=== PATIENT | female | born 1990 | race Caucasian/White ===

== ENCOUNTER 2023-05-01 09:35 | Outpatient (CLI) | payer OTHER, MEDICAID, SELFPAY | END 2023-05-01 09:36 | disposition home or self-care (01) | PROVIDERS: PCP Internal Medicine; Visit Provider Student in an Organized Health Care Education/Training Program | DX: O20.9 Hemorrhage in early pregnancy, unspecified (principal) | CPT/HCPCS: 36415; 84702 ==

== ENCOUNTER 2023-05-03 07:39 | Outpatient (CLI) | payer OTHER, MEDICAID, SELFPAY | END 2023-05-03 07:40 | disposition home or self-care (01) | LOC: ANHLAB 07:42 | PROVIDERS: PCP Internal Medicine; Visit Provider Obstetrics & Gynecology | DX: O20.9 Hemorrhage in early pregnancy, unspecified (principal) | CPT/HCPCS: 36415; 84702 ==

== ENCOUNTER 2023-05-06 07:25 | Outpatient (CLI) | payer OTHER, MEDICAID, SELFPAY | END 2023-05-06 07:26 | disposition home or self-care (01) | LOC: ANHLAB 07:27 | PROVIDERS: PCP Internal Medicine; Visit Provider Obstetrics & Gynecology | DX: O20.9 Hemorrhage in early pregnancy, unspecified (principal); Z3A.00 Weeks of gestation of pregnancy not specified | CPT/HCPCS: 36415; 84702 ==

== ENCOUNTER 2023-05-16 01:27 | Day surgery (SDC) | payer OTHER, MEDICAID, SELFPAY ==
[2023-05-08 11:12] VITALS: BMI 29.7
--- NOTE | 2023-05-08 11:15 | PC.NURSE ---
Report to the Outpatient Waiting Room, entrance under the green pavilion located off [facility], at time 0915 on date 05/16/23. Planned Procedure Time: 1115. Time changes happen often and if your time is changed the preop area will call you the afternoon before. - You and your visitor will be asked to self-screen and do not enter if you have any COVID symptoms. - A mask is optional within the hospital at this time. Patients may have clear liquids (water, carbonated beverages, clear teas, apple juice) until 3 hours prior to surgery with a maximum of 20 ounces. - No food from midnight until time of surgery Take the following medications with a SIP of water the morning of surgery: N/A DO NOT STOP ANY OF YOUR OTHER PRESCRIPTION MEDICATIONS PRIOR TO SURGERY ?EXCEPT THE FOLLOWING Medications to discontinue per physician: N/A Date to take last dose: N/A Please no make-up, nail georgian, hairspray, perfume, deodorant, or body powder the day of surgery. No jewelry (including any body piercings) or valuables the day of surgery, leave them at home. Please take a shower or bath the night before, or the morning of, surgery with an antibacterial soap. Wear comfortable, loose fitting clothing. - Jewelry must be removed prior to entering the operating room. Rings and piercings that are not removed may be cut off. - The hospital will not accept responsibility for valuables. - Please leave all valuables, including medications, at home the day of surgery. If you are going home after surgery, a licensed explosives truck driver must drive you home. - NO public transportation without another adult if you receive anesthesia. - We recommend that an adult stay with you for 24 hours following discharge. - We also recommend that you do not drive, make important decision, drink alcoholic beverages, or take any drugs that were not prescribed by your health care provider for at least 24 hours after your discharge time. Follow any additional instructions given to you from your surgeon. If you or anyone in your household have experienced Covid symptoms in the past week, please notify your surgeon or the nurse liaison at the phone number below for possible testing. Telephone instructions given to PT - LYNDSEY MCKEON and asked if any additional questions and then verbalized understanding. Patient advised to call surgeon office or pre surgery nurse liaison [phone] if any additional questions.
[2023-05-16 06:22] VITALS: BP 119/77; PULSE 66; RESP 16; TEMP 36.3; O2SAT 100
[2023-05-16] MEDS: LACTATED RINGERS 1,000 ML 30 ML IV CONT (06:35)
[2023-05-16 06:50] LABS: Hematocrit 39.7 % (37.0-47.0); Hemoglobin 13.4 g/dL (12.0-15.0); Mean Corpuscular HGB Conc 33.8 g/dl (32-36); Mean Corpuscular Hemoglobin 31.8 pg (26-34); Mean Corpuscular Volume 94.3 fl (80-100); Mean Platelet Volume 10.3 fl (7.4-10.4); Platelet Count Result 223 k/mm3 (150-375); Red Blood Count 4.21 M/mm3 (4.2-5.4); Red Cell Distribution Width 12.1 % (11.5-14.5); White Blood Count 4.8 K/mm3 (4.5-10.0)
--- NOTE | 2023-05-16 07:13 | WPDHPUPDATE1 ---
History and Physical Update Update Date/Time: 05/16/23 07:13 History and Physical has been reviewed, including an updated exam of the patient. There are NO changes in the patient's condition. Risks, benefits, and alternatives have been discussed and questions answered. Patient agrees to proceed with procedure.
--- NOTE | 2023-05-16 07:29 | WPDANESEPPF ---
Anes - Initial Pre Proc Eval Procedure: Operation Date: 05/16/23 07:30 Proposed Procedures p Suction Dilation and Curettage - Jose Carlos Alberto MD Date/Time: 05/16/23 07:29 Surgeon: Jose Carlos Alberto MD Pre Op Diagnosis: Missed Ab Patient Data Age: 33 Gender: F Height: 1.7 m Weight: 86 kg Last Vital Signs Temp 36.3 C L 05/16/23 06:22 Pulse 66 05/16/23 06:22 Resp 16 05/16/23 06:22 BP 119/77 05/16/23 06:22 Pulse Ox 100 05/16/23 06:22 O2 Del Method Room Air 05/16/23 06:22 Allergies Allergy/AdvReac Type Severity Reaction Status Date / Time No Known Allergies Allergy Verified 05/08/23 11:11 Home Medications Medication Instructions Recorded Confirmed Type No Home Medications 02/13/23 05/16/23 History Laboratory Tests 05/16/23 06:35 WBC 4.8 K/mm3 (4.5-10.0) RBC 4.21 M/mm3 (4.2-5.4) Hgb 13.4 g/dL (12.0-15.0) Hct 39.7 % (37.0-47.0) MCV 94.3 fl (80-100) MCH 31.8 pg (26-34) MCHC 33.8 g/dl (32-36) RDW 12.1 % (11.5-14.5) Plt Count 223 k/mm3 (150-375) MPV 10.3 fl (7.4-10.4) Patient hx anesthesia problems: none Family hx anesthesia problems: none Results Review: All pre-operative results and documents have been reviewed as part of the pre-operative evaluation. [facility] Past Medical History Medical History Abnormal Pap smear of cervix 11/03/14 ASCUS (+) HPV- 12/13/2014 colpo benign 04/03/2017 Lgsil +hpv; 12/24/2017 Lgsil +hpv; 05/18/2020 Lgsil -hpv ; 05/19/2021 Lgsil +hpv Encounter for IUD insertion 08/01/11 Mirena insertion 12/28/16 Mirena removal/insertion Encounter for IUD removal 12/28/16 Mirena removal/insertion HPV in female Low grade squamous intraepithelial lesion (LGSIL) on cervicovaginal cytologic smear Vaginal delivery 06/15/11 no complications Rosemary Surgical History Surgical History History of colposcopy with cervical biopsy 12/13/14 benign 05/15/17 LGSIL CECILIA 1, chronic cervicitis 03/05/18 benign Family History Family History Grandparent Cerebrovascular accident paternal grandmother Diabetes mellitus Grandparent Carcinoma of colon maternal grandmother Obesity Grandparent Obesity Diabetes mellitus Cirrhosis of liver Sibling Asthma Social History Social History Years smoked: 1 Smoking status: Former smoker Tobacco type: cigarettes Smoking end date: 06/17/09 Alcohol intake: current Alcohol use details: 1/MONTH Substance use: never Substance use type: does not use Living arrangements: with family Occupation/Education: occupation Gender identity (if verbalized by the patient): Female Spiritual care concerns: No Anes - Eval Final PreProcedure Day of Procedure 05/16/23 07:29 Patient weight: overweight Heart: regular rate and rhythm Lungs: clear to auscultation Airway: Mallampati scale class II Neurological: alert and oriented Last oral intake: >/= 8 hours ASA classification: II Emergent: no Anesthetic plan: proceed Anesthesia type and monitoring: general GIVS and standard monitoring Results Review: All pre-operative results and documents have been reviewed as part of the pre-operative evaluation. Informed Consent: The patient's anesthetic plan and its attendant risks and benefits were discussed with the patient/family/POA. Questions were solicited and answers provided to the satisfaction of the patient/family/POA.
[2023-05-16 07:52] VITALS: BP 112/66; PULSE 75; RESP 14; O2SAT 98
--- NOTE | 2023-05-16 07:52 | P.OP_ITS ---
Procedure Note - Detailed Date of Procedure 05/16/23 Pre-op Diagnosis Missed Ab Post-op Diagnosis Same Procedure Performed Suction curettage Surgeon Jose Carlos Alberto MD Anesthesia MAC Findings Moderate amount of retained products of conception Description of Procedure Patient prepped and draped in usual manner for this procedure. Cervix was dilated to allow a 8mm suction curette be placed. Depth of the uterus was 9cm. Suction curette removed tissue without difficulty. Sharp curetting throughout revealed no remaining tissue, suction curette was placed 1 last time with small amount of bleeding. This point the procedure was considered terminated the pat ient was sent to recovery room stable condition. Estimated Blood Loss 10 Drains No Packing No Pathology Yes Complications No immediate complications Condition Stable Disposition PACU [facility] Billing Surgery - Charge Forward: Surgery Billing
[2023-05-16] MEDS: RHO(D) IMMUNE GLOBULIN 300 MCG/2 ML SYRINGE IM (08:19)
[2023-05-16 08:20] VITALS: BP 109/63; PULSE 67; RESP 20
[2023-05-16] MEDS: oxyCODONE HCL (*CRX) 5 MG TAB IR PO (08:27)
[2023-05-16 08:50] VITALS: BP 100/50; PULSE 57; RESP 20
[2023-05-16] MEDS: ONDANSETRON INJ 4 MG/2 ML VIAL IV PUSH (08:53)
[2023-05-16 09:15] VITALS: BP 110/60; PULSE 60; RESP 20
== END 2023-05-16 09:27 | disposition home or self-care (01) ==
PROVIDERS: PCP Nurse Practitioner Family; Visit Provider Obstetrics & Gynecology
PROC: (CPT 59820; principal; 2023-05-16 07:30)
DX: O02.1 Missed abortion (principal); Z87.891 Personal history of nicotine dependence
CPT/HCPCS: 59820; 36415; 85027; 85461; 86850; 86900; 86901; 88305; 90384; A9270; J1100; J2250; J2405; J2704; J2790; J3010; J7120

== ENCOUNTER 2023-11-04 10:07 | Outpatient (RCR) | payer OTHER, SELFPAY ==
[2023-11-04 10:48] LABS: Basophils Percent Auto 0.6 % (0.2-1.2); Eosinophils Absolute Auto 0.1 K/mm3 (0-0.3); Hematocrit 41.4 % (37.0-47.0); Hemoglobin 14.2 g/dL (12.0-15.0); Immature Granulocyte Absolute 0.03 K/mm3 (0.00-0.031); Immature Granulocyte Percent A 0.4 % (0-0.5); Lymphocytes Percent Auto 25.3 % (18.3-44.2); Mean Corpuscular HGB Conc 34.3 g/dl (32-36); Mean Corpuscular Hemoglobin 31.8 pg (26-34); Mean Corpuscular Volume 92.6 fl (80-100); Mean Platelet Volume 10.4 fl (7.4-10.4); Monocytes Absolute Auto 0.3 K/mm3 (0.1-0.6); Monocytes Percent Auto 5.1 % (2.6-8.5); Neutrophils Absolute Auto 4.5 K/mm3 (1.3-6.7); Neutrophils Percent Auto 67.6 % (45.5-73.1); Platelet Count Result 255 k/mm3 (150-375); Red Blood Count 4.47 M/mm3 (4.2-5.4); White Blood Count 6.7 K/mm3 (4.5-10.0)
[2023-11-04 11:40] LABS: HIV 1/2 Ab P24 Ag Result Negative (Negative)
[2023-11-04 12:00] LABS: Hepatitis B Surface Antigen Negative (Negative)
[2023-11-04 12:05] LABS: Rubella IgG Antibody > 110.0 IU/ML
[2023-11-04 14:35] LABS: Rapid Plasma Reagin Non-Reactive (NonReactive)
[2023-11-05 16:28] LABS: CMV IgG Antibody <0.60 U/mL
== END 2024-02-02 23:59 | disposition home or self-care (01) ==
LOC: ANHLAB 10:07
PROVIDERS: PCP Nurse Practitioner Family; Visit Provider Student in an Organized Health Care Education/Training Program
DX: Z11.4 Encounter for screening for human immunodeficiency virus [HIV] (principal); N94.89 Other specified conditions associated with female genital organs and menstrual cycle
CPT/HCPCS: 36415; 84702; 85025; 86592; 86644; 86703; 86747; 86762; 86787; 86850; 86900; 86901; 87086; 87088; 87340; G0432

== ENCOUNTER 2023-11-20 15:43 | Outpatient (CLI) | payer OTHER, SELFPAY ==
--- NOTE | ~2023-11-20 | US_ITS ---
Pelvic ultrasound. Clinical History: First trimester , reassess subchorionic hemorrhage COMPARISON: 11/06/2023 Technique: Realtime transabdominal and transvaginal scanning of the pelvis was performed. Color flow Doppler and Doppler spectral analysis were performed. Findings: The uterus is retroverted, and contains an intrauterine gestation. [place]-rump length of 2.5 cm corresponds to an estimated gestational age of 9 weeks 2 days. heart rate is 173 bpm.. No s ubchorionic hemorrhage seen on the current exam The right ovary measures 4.2 x 4.2 x 2.2 cm. No significant right ovarian or adnexal mass is seen. The left ovary measures 2.0 x 3.3 x 1.8 cm. No significant left ovarian or adnexal mass is seen. There is no evidence of free fluid in the cul de sac. Impression: Live intrauterine gestation, with estimated gestational age of 9 weeks 2 days. heart rate is 17 3 bpm. Previously identified subchorionic hemorrhage is resolved. Reviewed, dictated and finalized at location . Impression: Live intrauterine gestation, with estimated gestational age of 9 weeks 2 days. heart rate is 173 bpm. Previously identified subchorionic hemorrhage is resolved.
== END 2023-11-20 15:44 ==
LOC: MICIMG 15:43
PROVIDERS: PCP Obstetrics & Gynecology; Visit Provider Obstetrics & Gynecology
DX: O46.8X1 Other antepartum hemorrhage, first trimester (principal); Z3A.09 9 weeks gestation of pregnancy
CPT/HCPCS: 76801; 76817

== ENCOUNTER 2024-04-03 07:24 | Outpatient (RCR) | payer OTHER, MEDICAID, SELFPAY ==
[2024-04-03 09:08] LABS: Basophils Absolute Auto 0.1 K/mm3 (0.0-0.1); Basophils Percent Auto 0.6 % (0.2-1.2); Eosinophils Absolute Auto 0.1 K/mm3 (0-0.3); Hematocrit 34.7 % (37.0-47.0); Hemoglobin 11.8 g/dL (12.0-15.0); Immature Granulocyte Absolute 0.46 K/mm3 (0.00-0.031); Immature Granulocyte Percent A 4.2 % (0-0.5); Lymphocytes Absolute Auto 1.53 K/mm3 (0.9-3.2); Lymphocytes Percent Auto 14.1 % (18.3-44.2); Mean Corpuscular Hemoglobin 33.9 pg (26-34); Mean Corpuscular Volume 99.7 fl (80-100); Mean Platelet Volume 10.1 fl (7.4-10.4); Monocytes Absolute Auto 0.6 K/mm3 (0.1-0.6); Monocytes Percent Auto 5.1 % (2.6-8.5); Neutrophils Absolute Auto 8.1 K/mm3 (1.3-6.7); Platelet Count Result 189 k/mm3 (150-375); Red Blood Count 3.48 M/mm3 (4.2-5.4); Red Cell Distribution Width 14.2 % (11.5-14.5); White Blood Count 10.8 K/mm3 (4.5-10.0)
[2024-04-03 09:17] LABS: Glucose 1 Hour PP 50gm Dose 95 mg/dL
[2024-04-03 09:58] LABS: HIV 1/2 Ab P24 Ag Result Negative (Negative)
[2024-04-03 12:42] LABS: Rapid Plasma Reagin Non-Reactive (NonReactive)
[2024-04-03] MEDS: RHO(D) IMMUNE GLOBULIN 300 MCG/2 ML SYRINGE IM (19:17)
== END 2024-07-02 23:59 | disposition home or self-care (01) ==
LOC: ANHLAB 07:24
PROVIDERS: PCP Nurse Practitioner Family; Visit Provider Obstetrics & Gynecology
DX: Z34.90 Encounter for supervision of normal pregnancy, unspecified, unspecified trimester (principal); Z29.13 Encounter for prophylactic Rho(D) immune globulin
CPT/HCPCS: 36415; 82947; 85025; 85461; 86592; 86703; 86850; 86900; 86901; 90384; 96372; G0432; J2790

== ENCOUNTER 2024-06-05 10:37 | Outpatient (CLI) | payer OTHER, MEDICAID, SELFPAY ==
--- NOTE | ~2024-06-05 | US_ITS ---
EXAMINATION: US OB follow up DATE: 06/05/2024 10:55 INDICATION: Small for gestational age during third trimester TECHNIQUE: Real-time ultrasound of the pelvis was performed. The interpreting radiologist was not pre sent for the study. COMPARISON: 05/20/2024 FINDINGS: There is a single living fetus in vertex presentation. The placenta is anterior and not low-lying. F etal heart rate is 127 beats per minute (bpm). The amniotic fluid index is 11.8 cm, which is normal (5th%-95%: 7.5-24.4 cm at 37 weeks estimated gestational age). The following biometric data were obtained: BPD: 9.2 cm -> 37 weeks 3 days Head circumference: 32.6 cm -> 37 weeks 0 days Abdominal circumference: 33.0 cm -> 36 weeks 6 days Femur length: 7.2 cm -> 36 weeks 5 days These measurements are concordant. Head circumference to abdominal circumference ratio: 0.99 (normal range 0.92-1.05). Estimated weight: 3064 g (+/-) 460 g or 6 lbs. 12 oz. (+/-) 1 lb. 0 oz. IMPRESSION: 1. Single living fetus in vertex presentation with heart rate of 127 bpm. 2. Normal amniotic fluid index of 11.8 cm. 3. Estimated weight is 42nd percentile by Hadlock criteria when 06/22/2024 is used as the estimat ed date of delivery (DHRUV). Please correlate with clinical information or earlier ultrasounds for most accurate DHRUV. Reviewed, dictated and finalized at location A. OUT IMPRESSION: 1. Single living fetus in vertex presentation with heart rate of 127 bpm. 2. Normal amniotic fluid index of 11.8 cm. 3. Estimated weight is 42nd percentile by Hadlock criteria when 06/22/2024 is used as the estimated date of delivery (DHRUV). Please correlate with clinical information or earlier ultrasounds for most accurate DHRUV.
== END 2024-06-05 10:38 | disposition home or self-care (01) ==
LOC: MICIMG 10:38
PROVIDERS: PCP Nurse Practitioner Family; Visit Provider Obstetrics & Gynecology
DX: Z34.83 Encounter for supervision of other normal pregnancy, third trimester (principal); Z3A.00 Weeks of gestation of pregnancy not specified
CPT/HCPCS: 76816

== ENCOUNTER 2024-06-21 16:49 | Inpatient (IN) | payer OTHER, MEDICAID, SELFPAY ==
[2024-06-21] VITALS (28 sets, daily range): BP systolic 116–153; BP diastolic 56–88; PULSE 65–96; TEMP 36.3–36.4; O2SAT 97–99; BMI 36.2
--- NOTE | 2024-06-21 17:35 | LDADM ---
This patient, Patricia Baird, was admitted to Labor/Delivery/Recovery 107 on 06/21/24 at 16:49. Plans for labor, pain management and were discussed with patient. Patient/family oriented to hospital policies and general routines including ID bracelet, bed and alarms, visiting hours, pain management, procedures, bathroom and other care routines, personal items, smoking policy, room service/diet and guest tray routines, security routines, and visiting hours. Patient/Family are encouraged to report perceived risks to care and to ask questions if they do not understand what they are told or what they should do. See OBIX for further documentation.
[2024-06-21 17:51] LABS: Basophils Percent Auto 0.4 % (0.2-1.2); Eosinophils Percent Auto 0.4 % (0-4.4); Hematocrit 37.8 % (37.0-47.0); Hemoglobin 13.3 g/dL (12.0-15.0); Immature Granulocyte Absolute 0.16 K/mm3 (0.00-0.031); Immature Granulocyte Percent A 1.4 % (0-0.5); Lymphocytes Absolute Auto 1.85 K/mm3 (0.9-3.2); Lymphocytes Percent Auto 16.4 % (18.3-44.2); Mean Corpuscular HGB Conc 35.2 g/dl (32-36); Mean Corpuscular Hemoglobin 34.4 pg (26-34); Mean Corpuscular Volume 97.7 fl (80-100); Mean Platelet Volume 11.5 fl (7.4-10.4); Monocytes Absolute Auto 0.7 K/mm3 (0.1-0.6); Monocytes Percent Auto 5.8 % (2.6-8.5); Neutrophils Absolute Auto 8.5 K/mm3 (1.3-6.7); Neutrophils Percent Auto 75.6 % (45.5-73.1); Platelet Count Result 187 k/mm3 (150-375); Red Blood Count 3.87 M/mm3 (4.2-5.4); Red Cell Distribution Width 13.8 % (11.5-14.5); White Blood Count 11.3 K/mm3 (4.5-10.0)
[2024-06-21] MEDS: DINOPROSTONE 10 MG VAG INSERT VAGINAL (17:51)
[2024-06-21] MEDS: ACETAMINOPHEN 500 MG TABLET 1000 MG PO (18:11)
[2024-06-21 18:43] LABS: HIV 1/2 Ab P24 Ag Result Negative (Negative)
[2024-06-21] MEDS: CYCLOBENZAPRINE HCL 10 MG TABLET PO (22:40)
[2024-06-21 22:51] LABS: Rapid Plasma Reagin Non-Reactive (NonReactive)
[2024-06-22] VITALS (322 sets, daily range): BP systolic 85–157; BP diastolic 40–123; PULSE 44–238; TEMP 36.3–38.5; O2SAT 79–100
--- NOTE | 2024-06-22 04:11 | P.PNAN_ITS ---
Anes - Initial Pre Proc Eval Procedure: labor epidural Date/Time: 06/22/24 03:30 Surgeon: Jose Carlos Alberto MD Pre Op Diagnosis: labor pain Pre Op Diagnosis: IOL Patient Data Age: 34 Gender: F Height: 1.7 m Weight: 105 kg Last Vital Signs Temp 36.3 C L 06/21/24 22:46 Pulse 80 06/22/24 04:10 BP 140/76 06/22/24 04:10 Pulse Ox 99 06/22/24 04:08 O2 Del Method Room Air 06/21/24 17:34 Allergies Allergy/AdvReac Type Severity Reaction Status Date / Time No Known Allergies Allergy Verified 06/22/24 04:12 Home Medications ?Medication ?Instructions ?Recorded ?Confirmed ?Type [id number] fum 65 mg 1 pkg PO DAILY 09/03/23 06/15/24 History iron-folic acid 1 mg-dha 250 mg oral gregg doxylamine succinate 25 mg tablet 25 mg PO QHS PRN Insomnia 12/04/23 06/15/24 History (Unisom (doxylamine)) aspirin 81 mg tablet,delayed 81 mg PO DAILY 01/22/24 06/15/24 History release (Adult Low Dose Aspirin) Laboratory Tests 06/21/24 17:41 WBC 11.3 H K/mm3 (4.5-10.0) RBC 3.87 L M/mm3 (4.2-5.4) Hgb 13.3 g/dL (12.0-15.0) Hct 37.8 % (37.0-47.0) MCV 97.7 fl (80-100) MCH 34.4 H pg (26-34) MCHC 35.2 g/dl (32-36) RDW 13.8 % (11.5-14.5) Plt Count 187 k/mm3 (150-375) MPV 11.5 H fl (7.4-10.4) Immature Gran % (Auto) 1.4 H % (0-0.5) Neut % (Auto) 75.6 H % (45.5-73.1) Lymph % (Auto) 16.4 L % (18.3-44.2) [place] % (Auto) 5.8 % (2.6-8.5) Eos % (Auto) 0.4 % (0-4.4) Baso % (Auto) 0.4 % (0.2-1.2) Lymph # (Auto) 1.85 K/mm3 (0.9-3.2) [place] # (Auto) 0.7 H K/mm3 (0.1-0.6) Eos # (Auto) 0.0 K/mm3 (0-0.3) Baso # (Auto) 0.0 K/mm3 (0.0-0.1) Abs Immat Gran (auto) 0.16 H K/mm3 (0.00-0.031) Absolute Neuts (auto) 8.5 H K/mm3 (1.3-6.7) Absolute Nucleated RBC 0.000 K/mm3 (0.0-0.012) Nucleated RBC % 0.0 % (0.0-0.2) RPR Non-reactive (NonReactive) HIV 1&2 Ab/P24 Ag 4thGn Negative (Negative) Blood Type O Negative Antibody Screen Negative : gestational age (40/0) Patient hx anesthesia problems: none Family hx anesthesia problems: none Results Review: All pre-operative results and documents have been reviewed as part of the pre- operative evaluation. [facility] Past Medical History Medical History Suppression of menses Low grade squamous intraepithelial lesion (LGSIL) on cervicovaginal cytologic smear Vaginal delivery 06/15/11 no complications Rosemary Encounter for IUD removal 12/28/16 Mirena removal/insertion Encounter for IUD insertion 08/01/11 Mirena insertion 12/28/16 Mirena removal/insertion HPV in female Abnormal Pap smear of cervix 11/03/14 ASCUS (+) HPV- 12/13/2014 colpo benign 04/03/2017 Lgsil +hpv; 12/24/2017 Lgsil +hpv; 05/18/2020 Lgsil -hpv ; 05/19/2021 Lgsil +hpv Surgical History Surgical History History of colposcopy (02/13/23) LGSIL CECILIA 1-2 History of hysteroscopy (05/16/23) suction D&C missed AB History of colposcopy with cervical biopsy 12/13/14 benign 05/15/17 LGSIL CECILIA 1, chronic cervicitis 03/05/18 benign Family History Family History Grandparent Cerebrovascular accident paternal grandmother Diabetes mellitus Grandparent Carcinoma of colon maternal grandmother Obesity Grandparent Obesity Diabetes mellitus Cirrhosis of liver Sibling Asthma Social History Social History Years smoked: 1 Smoking status: Never smoker Tobacco type: cigarettes Second hand tobacco smoke exposure: No Smoking end date: 06/17/09 Alcohol intake: former Alcohol use details: 1/MONTH Substance use: never Substance use type: does not use Do You Feel Safe in your Home?: Yes Lack of Transportation: No Lack of Food: Never True Current Housing: I Have Housing Concerned About Future Housing: No Difficulty Paying Gas/Electric Bills: No Difficulty Paying for Meds: No Currently Unemployed: No Education: Associate Degree Difficulty w/ Childcare or Family Care: No Living arrangements: with family Additional living arrangements comments: Occupation/Education: occupation Additional occupation/education comments: Nurse Gender identity (if verbalized by the patient): Female Sexual Orientation (if Verbalized by the Patient): Straight or Heterosexual Spiritual care concerns: No Anes - Eval Final PreProcedure Day of Procedure 06/22/24 04:11 Patient weight: overweight Heart: regular rate and rhythm Lungs: normal air movement Airway: Mallampati scale (2) class II Neurological: alert and oriented ASA classification: II Anesthetic plan: proceed Anesthesia type and monitoring: regional epidural and standard monitoring Results Review: All pre-operative results and documents have been reviewed as part of the pre- operative evaluation. Informed Consent: The patient's anesthetic plan and its attendant risks and benefits were discussed with the patient/family/POA. Questions were solicited and answers provided to the satisfaction of the patient/family/POA.
[2024-06-22] MEDS: OXYTOCIN 30 UNITS/NS 500 ML 30 UNITS/500 ML BAG IV CONT (06:47)
[2024-06-22] MEDS: FAMOTIDINE 20 MG/2 ML VIAL IV PUSH (07:13)
[2024-06-22] MEDS: LACTATED RINGERS 1,000 ML 125 ML IV CONT ×2 (15:52→22:19)
[2024-06-22] MEDS: ONDANSETRON INJ 4 MG/2 ML VIAL IV PUSH (19:30)
[2024-06-23] VITALS (39 sets, daily range): BP systolic 91–119; BP diastolic 44–79; PULSE 66–112; RESP 14–18; TEMP 35.9–37.2; O2SAT 66–100
--- NOTE | 2024-06-23 00:21 | PM.IMHP ---
H&P: HPI History of Present Illness Date/Time: 06/23/24 00:21 34-year-old 2 para 1 female at 40 weeks gestation presented for induction of labor via Cervidil on 06/21/2024 in the afternoon. Artificial rupture membranes on the morning of 06/21/2024 and Pitocin throughout the day. Slow progress was made the baby tolerated and mother was doing well with epidural. Labor now has no further progress at 7 days cm, and fetus was not tachycardia with occasional late decelerations though with moderate variability. Chief Complaint: Review of Systems Review of Systems: All systems reviewed & are unremarkable except as noted in HPI and below PMFSH Past Medical History Medical History Suppression of menses Low grade squamous intraepithelial lesion (LGSIL) on cervicovaginal cytologic smear Vaginal delivery 06/15/11 no complications Rosemary Encounter for IUD removal 12/28/16 Mirena removal/insertion Encounter for IUD insertion 08/01/11 Mirena insertion 12/28/16 Mirena removal/insertion HPV in female Abnormal Pap smear of cervix 11/03/14 ASCUS (+) HPV- 12/13/2014 colpo benign 04/03/2017 Lgsil +hpv; 12/24/2017 Lgsil +hpv; 05/18/2020 Lgsil -hpv ; 05/19/2021 Lgsil +hpv Surgical History Surgical History History of colposcopy (02/13/23) LGSIL CECILIA 1-2 History of hysteroscopy (05/16/23) suction D&C missed AB History of colposcopy with cervical biopsy 12/13/14 benign 05/15/17 LGSIL CECILIA 1, chronic cervicitis 03/05/18 benign Family History Family History Grandparent Cerebrovascular accident paternal grandmother Diabetes mellitus Grandparent Carcinoma of colon maternal grandmother Obesity Grandparent Obesity Diabetes mellitus Cirrhosis of liver Sibling Asthma Social History Social History Years smoked: 1 Smoking status: Never smoker Tobacco type: cigarettes Second hand tobacco smoke exposure: No Smoking end date: 06/17/09 Alcohol intake: former Alcohol use details: 1/MONTH Substance use: never Substance use type: does not use Do You Feel Safe in your Home?: Yes Lack of Transportation: No Lack of Food: Never True Current Housing: I Have Housing Concerned About Future Housing: No Difficulty Paying Gas/Electric Bills: No Difficulty Paying for Meds: No Currently Unemployed: No Education: Associate Degree Difficulty w/ Childcare or Family Care: No Living arrangements: with family Additional living arrangements comments: Occupation/Education: occupation Additional occupation/education comments: Nurse Gender identity (if verbalized by the patient): Female Sexual Orientation (if Verbalized by the Patient): Straight or Heterosexual Spiritual care concerns: No Meds Home Medications and Allergies Home Medications ?Medication ?Instructions ?Recorded ?Confirmed ?Type [id number] fum 65 mg 1 pkg PO DAILY 09/03/23 06/15/24 History iron-folic acid 1 mg-dha 250 mg oral gregg doxylamine succinate 25 mg tablet 25 mg PO QHS PRN Insomnia 12/04/23 06/15/24 History (Unisom (doxylamine)) aspirin 81 mg tablet,delayed 81 mg PO DAILY 01/22/24 06/15/24 History release (Adult Low Dose Aspirin) Allergies Allergy/AdvReac Type Severity Reaction Status Date / Time No Known Allergies Allergy Verified 06/22/24 04:12 Vital Signs Vital Signs - 24 hr 06/22/24 03:36 06/22/24 03:37 06/22/24 03:41 Temperature Pulse Rate 85 Blood Pressure 145/73 H Pulse Oximetry 98 99 06/22/24 03:46 06/22/24 03:47 06/22/24 03:49 Temperature Pulse Rate 81 78 Blood Pressure 157/92 H 149/85 H Pulse Oximetry 98 06/22/24 03:51 06/22/24 03:52 06/22/24 03:53 Temperature Pulse Rate 86 Blood Pressure 142/102 H Pulse Oximetry 99 98 06/22/24 03:55 06/22/24 03:58 06/22/24 04:01 Temperature Pulse Rate 91 85 85 Blood Pressure 149/74 H 149/80 H 148/81 H Pulse Oximetry 98 06/22/24 04:03 06/22/24 04:04 06/22/24 04:07 Temperature Pulse Rate 84 88 Blood Pressure 146/73 H 144/75 H Pulse Oximetry 98 06/22/24 04:08 06/22/24 04:10 06/22/24 04:13 Temperature Pulse Rate 80 88 Blood Pressure 140/76 129/70 Pulse Oximetry 99 97 06/22/24 04:16 06/22/24 04:18 06/22/24 04:19 Temperature Pulse Rate 83 95 Blood Pressure 142/81 H 145/88 H Pulse Oximetry 98 06/22/24 04:22 06/22/24 04:23 06/22/24 04:25 Temperature Pulse Rate 86 85 Blood Pressure 132/83 133/70 Pulse Oximetry 100 06/22/24 04:28 06/22/24 04:31 06/22/24 04:33 Temperature Pulse Rate 93 91 Blood Pressure 134/82 139/77 Pulse Oximetry 100 99 06/22/24 04:34 06/22/24 04:37 06/22/24 04:38 Temperature Pulse Rate 94 104 H Blood Pressure 141/87 H 133/72 Pulse Oximetry 99 06/22/24 04:40 06/22/24 04:43 06/22/24 04:48 Temperature Pulse Rate 92 96 Blood Pressure 142/73 H 138/73 Pulse Oximetry 100 99 06/22/24 04:53 06/22/24 04:58 06/22/24 05:01 Temperature Pulse Rate 76 Blood Pressure 128/64 Pulse Oximetry 99 98 06/22/24 05:03 06/22/24 05:08 06/22/24 05:13 Temperature Pulse Rate Blood Pressure Pulse Oximetry 98 99 99 06/22/24 05:18 06/22/24 05:19 06/22/24 05:20 Temperature 97.4 F L Pulse Rate Blood Pressure Pulse Oximetry 99 98 06/22/24 05:24 06/22/24 05:29 06/22/24 05:31 Temperature Pulse Rate 80 Blood Pressure 146/83 H Pulse Oximetry 99 98 06/22/24 05:34 06/22/24 05:39 06/22/24 05:44 Temperature Pulse Rate Blood Pressure Pulse Oximetry 99 98 98 06/22/24 05:49 06/22/24 05:54 06/22/24 05:59 Temperature Pulse Rate Blood Pressure Pulse Oximetry 99 97 97 06/22/24 06:01 06/22/24 06:04 06/22/24 06:09 Temperature Pulse Rate 89 Blood Pressure 142/74 H Pulse Oximetry 98 98 06/22/24 06:14 06/22/24 06:19 06/22/24 06:24 Temperature Pulse Rate Blood Pressure Pulse Oximetry 98 97 97 06/22/24 06:29 06/22/24 06:31 06/22/24 06:34 Temperature Pulse Rate 76 Blood Pressure 137/76 Pulse Oximetry 97 96 06/22/24 06:39 06/22/24 06:44 06/22/24 06:49 Temperature Pulse Rate Blood Pressure Pulse Oximetry 97 97 99 06/22/24 06:54 06/22/24 06:59 06/22/24 07:02 Temperature 97.9 F Pulse Rate Blood Pressure Pulse Oximetry 97 99 06/22/24 07:04 06/22/24 07:09 06/22/24 07:14 Temperature Pulse Rate Blood Pressure Pulse Oximetry 98 99 98 06/22/24 07:19 06/22/24 07:24 06/22/24 07:29 Temperature Pulse Rate Blood Pressure Pulse Oximetry 97 97 97 06/22/24 07:31 06/22/24 07:34 06/22/24 07:39 Temperature Pulse Rate 70 Blood Pressure 141/80 H Pulse Oximetry 99 97 06/22/24 07:44 06/22/24 07:49 06/22/24 07:54 Temperature Pulse Rate Blood Pressure Pulse Oximetry 97 98 97 06/22/24 07:59 06/22/24 08:00 06/22/24 08:01 Temperature 97.6 F Pulse Rate 65 Blood Pressure 127/80 Pulse Oximetry 97 06/22/24 08:04 06/22/24 08:09 06/22/24 08:14 Temperature Pulse Rate Blood Pressure Pulse Oximetry 98 97 99 06/22/24 08:19 06/22/24 08:24 06/22/24 08:29 Temperature Pulse Rate Blood Pressure Pulse Oximetry 99 99 99 06/22/24 08:31 06/22/24 08:34 06/22/24 08:39 Temperature Pulse Rate 80 Blood Pressure 141/85 H Pulse Oximetry 100 100 06/22/24 08:44 06/22/24 08:49 06/22/24 08:54 Temperature Pulse Rate Blood Pressure Pulse Oximetry 99 100 100 06/22/24 08:59 06/22/24 09:00 06/22/24 09:01 Temperature 97.9 F Pulse Rate 60 Blood Pressure 126/68 Pulse Oximetry 100 06/22/24 09:04 06/22/24 09:09 06/22/24 09:14 Temperature Pulse Rate Blood Pressure Pulse Oximetry 100 100 99 06/22/24 09:19 06/22/24 09:24 06/22/24 09:29 Temperature Pulse Rate Blood Pressure Pulse Oximetry 99 99 99 06/22/24 09:31 06/22/24 09:34 06/22/24 09:39 Temperature Pulse Rate 51 L Blood Pressure 133/67 Pulse Oximetry 98 98 06/22/24 09:44 06/22/24 09:49 06/22/24 09:54 Temperature Pulse Rate Blood Pressure Pulse Oximetry 99 99 99 06/22/24 09:59 06/22/24 10:01 06/22/24 10:04 Temperature Pulse Rate 66 Blood Pressure 135/72 Pulse Oximetry 100 100 06/22/24 10:09 06/22/24 10:14 06/22/24 10:19 Temperature Pulse Rate Blood Pressure Pulse Oximetry 100 100 100 06/22/24 10:20 06/22/24 10:25 06/22/24 10:26 Temperature Pulse Rate Blood Pressure Pulse Oximetry 100 100 99 06/22/24 10:31 06/22/24 10:36 06/22/24 10:41 Temperature Pulse Rate 73 Blood Pressure 151/88 H Pulse Oximetry 100 100 100 06/22/24 10:46 06/22/24 10:51 06/22/24 10:56 Temperature Pulse Rate Blood Pressure Pulse Oximetry 100 100 100 06/22/24 11:00 06/22/24 11:01 06/22/24 11:06 Temperature 97.3 F L Pulse Rate 66 Blood Pressure 151/91 H Pulse Oximetry 100 100 06/22/24 11:11 06/22/24 11:16 06/22/24 11:21 Temperature Pulse Rate Blood Pressure Pulse Oximetry 100 100 100 06/22/24 11:26 06/22/24 11:31 06/22/24 11:36 Temperature Pulse Rate 70 Blood Pressure 135/72 Pulse Oximetry 100 100 100 06/22/24 11:40 06/22/24 11:45 06/22/24 11:50 Temperature Pulse Rate Blood Pressure Pulse Oximetry 99 100 100 06/22/24 11:55 06/22/24 12:00 06/22/24 12:01 Temperature Pulse Rate 78 Blood Pressure 125/72 Pulse Oximetry 98 98 06/22/24 12:05 06/22/24 12:10 06/22/24 12:15 Temperature Pulse Rate Blood Pressure Pulse Oximetry 99 100 99 06/22/24 12:20 06/22/24 12:25 06/22/24 12:30 Temperature Pulse Rate Blood Pressure Pulse Oximetry 99 99 100 06/22/24 12:31 06/22/24 12:33 06/22/24 12:38 Temperature Pulse Rate 73 Blood Pressure 127/71 Pulse Oximetry 98 99 06/22/24 12:43 06/22/24 12:48 06/22/24 12:53 Temperature Pulse Rate Blood Pressure Pulse Oximetry 99 99 100 06/22/24 12:58 06/22/24 13:00 06/22/24 13:01 Temperature 97.6 F Pulse Rate 67 Blood Pressure 111/66 Pulse Oximetry 100 06/22/24 13:03 06/22/24 13:08 06/22/24 13:13 Temperature Pulse Rate Blood Pressure Pulse Oximetry 99 97 98 06/22/24 13:18 06/22/24 13:23 06/22/24 13:28 Temperature Pulse Rate Blood Pressure Pulse Oximetry 99 99 98 06/22/24 13:31 06/22/24 13:33 06/22/24 13:38 Temperature Pulse Rate 55 L Blood Pressure 112/68 Pulse Oximetry 97 98 06/22/24 13:43 06/22/24 13:48 06/22/24 13:53 Temperature Pulse Rate Blood Pressure Pulse Oximetry 100 100 100 06/22/24 13:58 06/22/24 14:01 06/22/24 14:03 Temperature Pulse Rate 72 Blood Pressure 131/79 Pulse Oximetry 99 99 06/22/24 14:08 06/22/24 14:12 06/22/24 14:13 Temperature Pulse Rate 58 L Blood Pressure 132/77 Pulse Oximetry 99 100 06/22/24 14:18 06/22/24 14:23 06/22/24 14:28 Temperature Pulse Rate Blood Pressure Pulse Oximetry 99 100 99 06/22/24 14:31 06/22/24 14:33 06/22/24 14:38 Temperature Pulse Rate 71 Blood Pressure 125/74 Pulse Oximetry 100 100 06/22/24 14:43 06/22/24 14:48 06/22/24 14:53 Temperature Pulse Rate Blood Pressure Pulse Oximetry 100 99 99 06/22/24 14:58 06/22/24 15:00 06/22/24 15:01 Temperature 97.9 F Pulse Rate 63 Blood Pressure 123/71 Pulse Oximetry 98 06/22/24 15:03 06/22/24 15:08 06/22/24 15:13 Temperature Pulse Rate Blood Pressure Pulse Oximetry 99 99 100 06/22/24 15:18 06/22/24 15:23 06/22/24 15:28 Temperature Pulse Rate Blood Pressure Pulse Oximetry 100 100 99 06/22/24 15:31 06/22/24 15:33 06/22/24 15:38 Temperature Pulse Rate 73 Blood Pressure 140/98 H Pulse Oximetry 100 100 06/22/24 15:43 06/22/24 15:48 06/22/24 15:53 Temperature Pulse Rate Blood Pressure Pulse Oximetry 100 100 100 06/22/24 15:58 06/22/24 16:01 06/22/24 16:03 Temperature Pulse Rate 76 Blood Pressure 143/82 H Pulse Oximetry 100 100 06/22/24 16:08 06/22/24 16:13 06/22/24 16:18 Temperature Pulse Rate Blood Pressure Pulse Oximetry 100 100 100 06/22/24 16:23 06/22/24 16:28 06/22/24 16:31 Temperature Pulse Rate 71 Blood Pressure 134/85 Pulse Oximetry 100 100 06/22/24 16:33 06/22/24 16:38 06/22/24 16:43 Temperature Pulse Rate Blood Pressure Pulse Oximetry 100 100 100 06/22/24 16:48 06/22/24 16:53 06/22/24 16:58 Temperature Pulse Rate Blood Pressure Pulse Oximetry 100 100 100 06/22/24 17:00 06/22/24 17:03 06/22/24 17:08 Temperature 98.1 F Pulse Rate Blood Pressure Pulse Oximetry 100 100 06/22/24 17:13 06/22/24 17:18 06/22/24 17:23 Temperature Pulse Rate Blood Pressure Pulse Oximetry 100 100 99 06/22/24 17:28 06/22/24 17:31 06/22/24 17:33 Temperature Pulse Rate 73 Blood Pressure 109/65 Pulse Oximetry 100 100 06/22/24 17:38 06/22/24 17:43 06/22/24 17:48 Temperature Pulse Rate Blood Pressure Pulse Oximetry 100 100 100 06/22/24 17:53 06/22/24 17:58 06/22/24 18:01 Temperature Pulse Rate 66 Blood Pressure 122/69 Pulse Oximetry 100 100 06/22/24 18:03 06/22/24 18:05 06/22/24 18:10 Temperature Pulse Rate Blood Pressure Pulse Oximetry 100 100 99 06/22/24 18:15 06/22/24 18:20 06/22/24 18:25 Temperature Pulse Rate Blood Pressure Pulse Oximetry 100 100 100 06/22/24 18:30 06/22/24 18:31 06/22/24 18:35 Temperature Pulse Rate 74 Blood Pressure 142/92 H Pulse Oximetry 100 100 06/22/24 18:40 06/22/24 18:45 06/22/24 19:09 Temperature 97.9 F Pulse Rate Blood Pressure Pulse Oximetry 100 99 100 06/22/24 19:14 06/22/24 19:19 06/22/24 19:24 Temperature Pulse Rate Blood Pressure Pulse Oximetry 100 100 100 06/22/24 19:29 06/22/24 19:31 06/22/24 19:34 Temperature Pulse Rate 85 Blood Pressure 132/77 Pulse Oximetry 99 100 06/22/24 19:39 06/22/24 19:44 06/22/24 19:49 Temperature Pulse Rate Blood Pressure Pulse Oximetry 100 99 99 06/22/24 19:54 06/22/24 19:59 06/22/24 20:01 Temperature Pulse Rate 77 Blood Pressure 122/71 Pulse Oximetry 100 100 06/22/24 20:04 06/22/24 20:09 06/22/24 20:14 Temperature Pulse Rate Blood Pressure Pulse Oximetry 99 100 100 06/22/24 20:19 06/22/24 20:24 06/22/24 20:29 Temperature Pulse Rate Blood Pressure Pulse Oximetry 99 99 100 06/22/24 20:30 06/22/24 20:35 06/22/24 20:40 Temperature Pulse Rate Blood Pressure Pulse Oximetry 100 100 100 06/22/24 20:41 06/22/24 20:44 06/22/24 20:45 Temperature Pulse Rate 87 85 Blood Pressure 121/79 114/65 Pulse Oximetry 100 06/22/24 20:48 06/22/24 20:50 06/22/24 20:52 Temperature Pulse Rate 78 97 93 Blood Pressure 107/59 L 104/61 126/74 Pulse Oximetry 100 06/22/24 20:53 06/22/24 20:55 06/22/24 20:58 Temperature Pulse Rate 88 88 101 H Blood Pressure 136/79 114/68 124/59 L Pulse Oximetry 100 06/22/24 21:00 06/22/24 21:01 06/22/24 21:04 Temperature Pulse Rate 73 68 Blood Pressure 114/59 L 111/52 L Pulse Oximetry 96 06/22/24 21:05 06/22/24 21:07 06/22/24 21:10 Temperature Pulse Rate 69 Blood Pressure 104/54 L Pulse Oximetry 98 100 06/22/24 21:10 06/22/24 21:10 06/22/24 21:10 Temperature Pulse Rate 71 Blood Pressure 92/69 L Pulse Oximetry 96 06/22/24 21:13 06/22/24 21:14 06/22/24 21:15 Temperature 99 F Pulse Rate Blood Pressure 103/91 H Pulse Oximetry 100 79 L 06/22/24 21:15 06/22/24 21:15 06/22/24 21:16 Temperature Pulse Rate 106 H Blood Pressure Pulse Oximetry 100 100 06/22/24 21:19 06/22/24 21:20 06/22/24 21:25 Temperature Pulse Rate 197 H Blood Pressure Pulse Oximetry 100 100 06/22/24 21:30 06/22/24 21:31 06/22/24 21:35 Temperature Pulse Rate 108 H Blood Pressure 85/40 L Pulse Oximetry 100 100 06/22/24 21:40 06/22/24 21:45 06/22/24 21:46 Temperature Pulse Rate 165 H Blood Pressure 115/77 Pulse Oximetry 100 100 06/22/24 21:50 06/22/24 21:55 06/22/24 22:00 Temperature Pulse Rate Blood Pressure Pulse Oximetry 100 100 100 06/22/24 22:01 06/22/24 22:05 06/22/24 22:10 Temperature Pulse Rate 76 Blood Pressure 128/77 Pulse Oximetry 100 100 06/22/24 22:15 06/22/24 22:16 06/22/24 22:21 Temperature 98.3 F Pulse Rate Blood Pressure 143/123 H Pulse Oximetry 100 99 100 06/22/24 22:26 06/22/24 22:31 06/22/24 22:32 Temperature Pulse Rate 97 Blood Pressure 135/87 Pulse Oximetry 99 98 97 06/22/24 22:32 06/22/24 22:37 06/22/24 22:42 Temperature Pulse Rate Blood Pressure Pulse Oximetry 97 99 97 06/22/24 22:44 06/22/24 22:50 06/22/24 22:51 Temperature 99.5 F Pulse Rate 238 H Blood Pressure 126/73 Pulse Oximetry 99 06/22/24 22:55 06/22/24 22:55 06/22/24 23:00 Temperature Pulse Rate Blood Pressure Pulse Oximetry 97 99 99 06/22/24 23:01 06/22/24 23:05 06/22/24 23:10 Temperature Pulse Rate 88 Blood Pressure 144/77 H Pulse Oximetry 99 100 06/22/24 23:15 06/22/24 23:16 06/22/24 23:20 Temperature Pulse Rate 101 H Blood Pressure 131/93 H Pulse Oximetry 97 100 06/22/24 23:22 06/22/24 23:27 06/22/24 23:31 Temperature Pulse Rate 93 Blood Pressure 145/88 H Pulse Oximetry 100 98 06/22/24 23:32 06/22/24 23:37 06/22/24 23:42 Temperature Pulse Rate Blood Pressure Pulse Oximetry 100 100 100 06/22/24 23:46 06/22/24 23:47 06/22/24 23:52 Temperature Pulse Rate 107 H Blood Pressure 157/90 H Pulse Oximetry 99 100 06/22/24 23:57 Temperature Pulse Rate Blood Pressure Pulse Oximetry 98 Exam Resp: Effort & Inspection: normal respiratory effort Auscultation: clear to auscultation bilaterally Cardio: Rate: regular rate Rhythm: regular rhythm GI: Inspection: normal to inspection Auscultation: normal bowel sounds : Bimanual exam- vagina & uterus: enlarged ( 40cm heart tones 170) Assessment and Plan Assessment and plan (1) 40 weeks gestation of : Code(s): Z3A.40 - 40 weeks gestation of Status: Acute (2) Maternal fever affecting labor: Code(s): O75.2 - Pyrexia during labor, not elsewhere classified Status: Acute (3) tachycardia: Status: Acute (4) Arrested labor: Code(s): O62.1 - Secondary uterine inertia Status: Acute Plan proceed with primary low-transverse section. Need to proceed with delivery discussed with patient , who understand, questions have been answered, will proceed.
[2024-06-23] MEDS: ACETAMINOPHEN 500 MG TABLET 1000 MG PO (00:22)
[2024-06-23] MEDS: FAMOTIDINE 20 MG/2 ML VIAL IV PUSH (00:23)
--- NOTE | 2024-06-23 00:27 | WPDHPUPDATE1 ---
History and Physical Update Update Date/Time: 06/23/24 00:27 History and Physical has been reviewed, including an updated exam of the patient. There are NO changes in the patient's condition. Risks, benefits, and alternatives have been discussed and questions answered. Patient agrees to proceed with procedure.
--- NOTE | 2024-06-23 00:44 | P.PNAN_ITS ---
Anes - Eval Final PreProcedure Day of Procedure 06/23/24 00:44 Patient weight: obese Heart: regular rate and rhythm Lungs: clear to auscultation and normal air movement Airway: Mallampati scale class II Neurological: alert and oriented Last oral intake: >/= 8 hours ASA classification: II Emergent: no Anesthetic plan: proceed Anesthesia type and monitoring: regional epidural and standard monitoring Other findings: to C/S Results Review: All pre-operative results and documents have been reviewed as part of the pre- operative evaluation. Informed Consent: The patient's anesthetic plan and its attendant risks and benefits were discussed with the patient/family/POA. Questions were solicited and answers provided to the satisfaction of the patient/family/POA.
--- NOTE | 2024-06-23 01:29 | P.PCNOB_ITS ---
OB - Delivery Note Procedure Delivery date: 06/23/24 Pre-op diagnosis: Other (1. 40 week IUP 2. Arrest of dilation 3. tachycardia 4. Chorioamnionitis) Post-op Diagnosis: Same (+5. Intraop hemorrhage due to uterine atony) Induction method: Per Pitocin Protocol and Per Cervidil Protocol Delivery augmentation: Rupture of Membranes Delivery monitor: External FHT and Internal Uterine Prior to decision for section, ACOG/SMFM labor guidelines were considered and discussed with the patient and staff. Decision made to proceed with the section.: Yes Procedure Performed: Primary Primary branch: low cervical, transverse Surgeon: Jose Carlos Alberto MD Anesthesia type: Epidural Description of Procedure/Findings: Patient was prepped and draped in usual manner this procedure. Pfannenstiel inc ision was made and subcutaneous tissue was dissected to the fascial layer. Fascia was extended the length of the Pfannenstiel incision. Superiorly and inferiorly the fascia was dissected away from the rectus muscles. Muscles were bluntly dissected laterally and the peritoneum was entered without difficulty. Bladder flap was developed without difficulty. Uterus was then scored and extended the length of the lower segment. Vertex was delivered without difficulty the rest of baby delivered without difficulty as well, cord clamped and cut and senior director in attendance then oversaw the care of the infant. Uterus was manually removed in fragments. The uterine cavity was swept multiple times with a lap pad to be sure there was no further placental fragments noted and there were none. Right lower extension was noted and this was closed using a running interlocking suture line of 0 Monocryl. The uterine incision was then closed using 0 Monocryl in a running interlocking manner with good approximation hemostasis noted. There were a few areas of oozing which were rendered hemostatic using [id number] 0 Monocryl sutures. During closure of the uterine incision at knee was noted and Pitocin was continued as well as Methergine was given. Uterus was ultimately returned to the abdominal cavity and gutters were cleared of serosanguineous fluid and clots. Uterine incision again noted to be hemostatic and the fascia was then approximated using 0 Vicryl from the left angle midline at the right angle midline with good approximation noted. Subcutaneous tissue was approximated and may were then used to approximate the skin edges. At this point the procedure was considered terminated. Specimen: Yes (Placenta) Estimated Blood Loss: 1,875 Drains: Yes (Reddy) Packing: No Pathology: Yes (Placenta) Complications: Other complications (Intraoperative hemorrhage due to atony) Condition: Stable Disposition: PACU Baby Gestational Age by Date: 40 gender: Male presentation: vertex Placenta delivery description: Manual Removal Cord Vessel Description: 3 Vessels
[2024-06-23] MEDS: LACTATED RINGERS 1,000 ML 125 ML IV CONT (02:06)
[2024-06-23] MEDS: MORPHINE SULFATE INJ (*CRX) 10 MG/ML AMP 2 MG IV PUSH (02:32)
[2024-06-23] MEDS: AMPICILLIN 2 GM/NS 100 ML 2 GM/100 ML BAG IVPB ×4 (02:45→23:04)
[2024-06-23] MEDS: GENTAMICIN SULFATE INJ 395 MG in DEXTROSE 5% 100 ML 97.12 MG IVPB (03:22)
[2024-06-23] MEDS: HYDROcodone/acetaminophen (*CRX) 10-325 MG TABLET 1 TAB PO (04:04)
[2024-06-23] MEDS: ACETAMINOPHEN 325 MG TABLET 650 MG PO ×4 (04:05→22:26)
[2024-06-23] MEDS: CLINDAMYCIN 900 MG/D5W 50 ML 900 MG/50 ML PIGGYBACK 50 MG IVPB ×3 (04:09→21:05)
[2024-06-23] MEDS: LIDOCAINE 5% PATCH 1 PATCH TRANSDERM (04:10)
[2024-06-23] MEDS: KETOROLAC 15 MG/ML VIAL (*BKC) IV PUSH ×4 (04:12→22:25)
--- NOTE | 2024-06-23 04:42 | OBPPTRN ---
06/23/2024 at 0400 Patient transferred on stretcher to post room #291. Maxi air glide used to transfer patient without difficulty. Support person present. Patient and her significant other oriented to unit, room, information board, rooming in, admission packet and security measures. Patient and her significant other verbalizes understanding.
[2024-06-23 05:45] LABS: Estimated CRCL calculation 116 ml/min; Estimated Glomerular Filt Rate > 60
[2024-06-23] MEDS: ONDANSETRON INJ 4 MG/2 ML VIAL IV PUSH (06:55)
[2024-06-23] MEDS: diphenhydrAMINE HCl INJ 50 MG/ML VIAL 25 MG IV PUSH ×3 (07:23→22:26)
--- NOTE | 2024-06-23 07:58 | WPDANLDPN2 ---
Anes-Prog Note L&D Date/Time: 06/23/24 07:58 Comfortable throughout: labor, delivery and section Neuraxial method: epidural Epidural/Spinal procedure site: clean & non-tender Neuro status: Neuro function grossly intact. Cardiovascular status: normal Respiratory status: normal Airway patency: baseline Mental status: baseline Post-Op hydration status: normal Vital Signs: Last Vital Signs Temp 35.9 C L 06/23/24 04:15 Pulse 83 06/23/24 04:15 Resp 16 06/23/24 04:15 BP 100/62 06/23/24 04:15 Pulse Ox 97 06/23/24 04:15 O2 Del Method Room Air 06/21/24 17:34 Pain score (VAS): 6 I/O: Intake & Output 06/22/24 06/22/24 06/23/24 15:59 23:59 07:59 Intake Total 806.3 472.9 Output Total 2188 Balance 806.3 -1715.1 Post-procedural complaints: pruritis moderate, treatment effective (Patient treated with Benadryl) Patient feedback: Patient satisfied with anesthetic care.
--- NOTE | 2024-06-23 07:59 | WPDANLDNPN2 ---
Anes-Prog Note L&D-Neuraxial Date/Time: 06/23/24 07:59 Neuraxial medications: epidural PF morphine Opiod-related complaints: pruritis moderate, treatment effective (Patient treated with Benadryl) Patient feedback: Patient satisfied with post-operative pain management.
[2024-06-23] MEDS: DEXTROSE 5%/0.45% SOD CHL 1,000 ML 125 ML IV CONT (08:31)
[2024-06-23 09:52] LABS: Hematocrit 27.8 % (37.0-47.0); Hemoglobin 9.8 g/dL (12.0-15.0); Mean Corpuscular HGB Conc 35.3 g/dl (32-36); Mean Corpuscular Hemoglobin 35.5 pg (26-34); Mean Corpuscular Volume 100.7 fl (80-100); Mean Platelet Volume 11.1 fl (7.4-10.4); Platelet Count Result 143 k/mm3 (150-375); Red Blood Count 2.76 M/mm3 (4.2-5.4); Red Cell Distribution Width 14.2 % (11.5-14.5); White Blood Count 28.2 K/mm3 (4.5-10.0)
[2024-06-23] MEDS: METOCLOPRAMIDE HCL INJ 10 MG/2 ML VIAL IV PUSH (10:01)
[2024-06-23] MEDS: SIMETHICONE 80 MG TAB.CHEW PO (10:38)
[2024-06-23 11:26] LABS: Anisocytosis 1+; Band Neutrophils Percent 22 % (0-6); Lymphocytes Absolute Manual 1.12 K/mm3 (1.1-4.5); Lymphocytes Percent Manual 4 % (18-44); Monocytes Absolute Manual 0.84 K/mm3 (0.1-0.90); Monocytes Percent Manual 3 % (3-9); Neutrophils Absolute Manual 26.22 K/mm3 (1.7-7.2); Neutrophils Percent Manual 71 % (46-73); Platelet Estimate Slightly Decreased (Adequate); Total Cells Counted 100
[2024-06-23 11:27] LABS: Large Platelets Present; Schistocytes None Seen
[2024-06-23 14:03] LABS: Gentamicin Random 1.6 ug/mL (5.0-12.0)
[2024-06-23] MEDS: DEXTROSE 5%/0.45% SOD CHL 1,000 ML 999 ML IV CONT (14:22)
[2024-06-24] VITALS (15 sets, daily range): BP systolic 99–124; BP diastolic 56–83; PULSE 75–104; RESP 14–18; TEMP 36.4–37.3; O2SAT 97–100
[2024-06-24] MEDS: GENTAMICIN SULFATE INJ 400 MG in DEXTROSE 5% 100 ML 97.23 MG IVPB (03:10)
[2024-06-24] MEDS: IBUPROFEN 600 MG TABLET PO ×4 (04:30→22:47)
[2024-06-24] MEDS: ACETAMINOPHEN 325 MG TABLET 650 MG PO (04:30)
[2024-06-24] MEDS: DEXTROSE 5%/0.45% SOD CHL 1,000 ML 999 ML IV CONT (04:30)
[2024-06-24] MEDS: CLINDAMYCIN 900 MG/D5W 50 ML 900 MG/50 ML PIGGYBACK 50 MG IVPB ×3 (04:35→21:36)
[2024-06-24] MEDS: LIDOCAINE 5% PATCH 1 PATCH TRANSDERM (04:36)
[2024-06-24] MEDS: AMPICILLIN 2 GM/NS 100 ML 2 GM/100 ML BAG IVPB ×3 (05:31→18:06)
[2024-06-24 05:50] LABS: Basophils Percent Auto 0.3 % (0.2-1.2); Eosinophils Absolute Auto 0.1 K/mm3 (0-0.3); Eosinophils Percent Auto 0.4 % (0-4.4); Hematocrit 23.5 % (37.0-47.0); Hemoglobin 7.7 g/dL (12.0-15.0); Immature Granulocyte Absolute 0.17 K/mm3 (0.00-0.031); Immature Granulocyte Percent A 1.1 % (0-0.5); Lymphocytes Absolute Auto 1.77 K/mm3 (0.9-3.2); Lymphocytes Percent Auto 11.3 % (18.3-44.2); Mean Corpuscular HGB Conc 32.8 g/dl (32-36); Mean Corpuscular Hemoglobin 34.5 pg (26-34); Mean Corpuscular Volume 105.4 fl (80-100); Mean Platelet Volume 11.4 fl (7.4-10.4); Monocytes Absolute Auto 0.6 K/mm3 (0.1-0.6); Monocytes Percent Auto 4.1 % (2.6-8.5); Neutrophils Percent Auto 82.8 % (45.5-73.1); Platelet Count Result 126 k/mm3 (150-375); Red Blood Count 2.23 M/mm3 (4.2-5.4); Red Cell Distribution Width 14.6 % (11.5-14.5); White Blood Count 15.7 K/mm3 (4.5-10.0)
--- NOTE | 2024-06-24 06:09 | PM.OBPNVD ---
OB - PN: Subj Subjective Date/time seen: 06/24/24 06:09 patient seen 06/23/2024...late entry S: Pain moderately well controlled, resting comfortably though movement difficult. Nausea better after reglan, tolerated some solids without emesis. Lightheaded, not out of bed yet. O: VSS afebrile abd: good BS, fundus radha tender ext: SCD in place Lab: noted A: doing well 12h s/p section with 1800 EBL, WBC elevated as expected though afebrile P: continue antibiotics/slow increase in diet/ambulation. Briefly discussed possible transfusion if symptomatic once ambulating. OB - PN: Obj Data Labs 06/23/24 09:44 06/23/24 04:54 Labs: Laboratory Results - last 24 hr 06/23/24 06/23/24 09:44 13:41 WBC 28.2 H RBC 2.76 L Hgb 9.8 L D Hct 27.8 L MCV 100.7 H MCH 35.5 H MCHC 35.3 RDW 14.2 Plt Count 143 L MPV 11.1 H Immature Gran % (Auto) Not Reportable Neut % (Auto) Not Reportable Lymph % (Auto) Not Reportable [place] % (Auto) Not Reportable Eos % (Auto) Not Reportable Baso % (Auto) Not Reportable Lymph # (Auto) Not Reportable [place] # (Auto) Not Reportable Eos # (Auto) Not Reportable Baso # (Auto) Not Reportable Abs Immat Gran (auto) Not Reportable Absolute Neuts (auto) Not Reportable Absolute Nucleated RBC Not Reportable Total Counted 100 Neutrophils % (Manual) 71 Band Neutrophils % 22 H Lymphocytes % (Manual) 4 L Monocytes % (Manual) 3 Nucleated RBC % Not Reportable Abs Neuts (Manual) 26.22 H Abs Lymphs (Manual) 1.12 Abs Monocytes (Manual) 0.84 Platelet Estimate Slightly decreased Large Platelets Present Anisocytosis 1+ Schistocytes None seen Random Gentamicin 1.6 L OB - PN A/P Time Spent With Patient Time: Total time spent is greater than 50% in coordination of care (as documented) at patient's floor/unit and/or counseling patient:
[2024-06-24 06:17] LABS: Large Platelets Present; Macrocytosis 1+ (NORMAL); Platelet Estimate Slightly Decreased (Adequate); Schistocytes None Seen
[2024-06-24] MEDS: SIMETHICONE 80 MG TAB.CHEW PO ×3 (08:29→16:34)
[2024-06-24] MEDS: DOCUSATE SODIUM 100 MG CAPSULE PO ×2 (08:29→16:34)
[2024-06-24] MEDS: POLYSACCHARIDE IRON COMPLEX 150 MG CAPSULE PO ×2 (08:29→16:34)
[2024-06-24] MEDS: MULTIVIT/MIN/PREN/FOL AC/IRON TABLET 1 TAB PO (08:29)
[2024-06-24] MEDS: HYDROcodone/acetaminophen (*CRX) 5-325 MG TABLET 1 TAB PO (10:12)
[2024-06-24] MEDS: SODIUM CHLORIDE 0.9% IV 250 ML 30 ML IV CONT (10:13)
[2024-06-24] MEDS: TUBING, BLOOD PLUM PUMP TUBING 1 EACH XX (10:14)
[2024-06-24] MEDS: HYDROcodone/acetaminophen (*CRX) 10-325 MG TABLET 1 TAB PO ×3 (13:14→21:32)
--- NOTE | 2024-06-24 14:30 | WPDANLDPN2 ---
Anes-Prog Note L&D Date/Time: 06/24/24 14:30 Comfortable throughout: labor, delivery and section Neuraxial method: epidural Epidural/Spinal procedure site: clean & non-tender Neuro status: Neuro function grossly intact. Cardiovascular status: normal Respiratory status: normal Airway patency: baseline Mental status: baseline Post-Op hydration status: normal Vital Signs: Last Vital Signs Temp 98.4 F 06/24/24 12:09 Pulse 97 06/24/24 12:09 Resp 16 06/24/24 12:09 BP 110/67 06/24/24 12:09 Pulse Ox 100 06/24/24 12:09 O2 Del Method Room Air 06/24/24 07:00 Pain score (VAS): 0/10 I/O: Intake & Output 06/23/24 06/24/24 06/24/24 23:59 07:59 15:59 Intake Total 400 2350 270 Output Total 950 3000 Balance -550 -650 270 Post-procedural complaints: pruritis moderate, treatment effective (Patient treated with Benadryl) Patient feedback: Patient satisfied with anesthetic care.
--- NOTE | 2024-06-24 14:31 | WPDANLDNPN2 ---
Anes-Prog Note L&D-Neuraxial Date/Time: 06/24/24 14:31 Neuraxial medications: epidural PF morphine Patient feedback: Patient satisfied with post-operative pain management.
[2024-06-25] MEDS: AMPICILLIN 2 GM/NS 100 ML 2 GM/100 ML BAG IVPB ×3 (00:52→13:27)
[2024-06-25] MEDS: GENTAMICIN SULFATE INJ 400 MG in DEXTROSE 5% 100 ML 97.23 MG IVPB (03:37)
[2024-06-25] MEDS: HYDROcodone/acetaminophen (*CRX) 5-325 MG TABLET 1 TAB PO ×2 (03:50→11:07)
[2024-06-25] MEDS: IBUPROFEN 600 MG TABLET PO ×2 (05:10→11:07)
[2024-06-25 05:44] VITALS: BP 111/70; PULSE 83; RESP 16; TEMP 36.7; O2SAT 98
[2024-06-25] MEDS: CLINDAMYCIN 900 MG/D5W 50 ML 900 MG/50 ML PIGGYBACK 50 MG IVPB ×2 (06:02→14:10)
[2024-06-25 06:22] LABS: Basophils Absolute Auto 0.1 K/mm3 (0.0-0.1); Basophils Percent Auto 0.4 % (0.2-1.2); Eosinophils Absolute Auto 0.1 K/mm3 (0-0.3); Eosinophils Percent Auto 1.2 % (0-4.4); Hematocrit 27.5 % (37.0-47.0); Hemoglobin 9.2 g/dL (12.0-15.0); Immature Granulocyte Absolute 0.17 K/mm3 (0.00-0.031); Immature Granulocyte Percent A 1.4 % (0-0.5); Lymphocytes Absolute Auto 1.68 K/mm3 (0.9-3.2); Lymphocytes Percent Auto 14.2 % (18.3-44.2); Mean Corpuscular HGB Conc 33.5 g/dl (32-36); Mean Corpuscular Hemoglobin 32.9 pg (26-34); Mean Corpuscular Volume 98.2 fl (80-100); Mean Platelet Volume 10.8 fl (7.4-10.4); Monocytes Absolute Auto 0.5 K/mm3 (0.1-0.6); Monocytes Percent Auto 4.3 % (2.6-8.5); Neutrophils Absolute Auto 9.3 K/mm3 (1.3-6.7); Neutrophils Percent Auto 78.5 % (45.5-73.1); Platelet Count Result 152 k/mm3 (150-375); Red Cell Distribution Width 16.4 % (11.5-14.5); White Blood Count 11.8 K/mm3 (4.5-10.0)
[2024-06-25 06:30] LABS: Estimated CRCL calculation 144 ml/min; Estimated Glomerular Filt Rate > 60
[2024-06-25 07:00] VITALS: BP 129/82; PULSE 83; RESP 16; TEMP 36.4; O2SAT 100
[2024-06-25] MEDS: MULTIVIT/MIN/PREN/FOL AC/IRON TABLET 1 TAB PO (08:37)
[2024-06-25] MEDS: SIMETHICONE 80 MG TAB.CHEW PO ×2 (08:37→14:19)
[2024-06-25] MEDS: POLYSACCHARIDE IRON COMPLEX 150 MG CAPSULE PO (08:37)
[2024-06-25] MEDS: DOCUSATE SODIUM 100 MG CAPSULE PO (08:37)
[2024-06-25] MEDS: RHO(D) IMMUNE GLOBULIN 300 MCG/2 ML SYRINGE IM (08:38)
--- NOTE | 2024-06-25 09:06 | PM.OBPNVD ---
OB - PN: Subj Subjective Date/time seen: 06/25/24 09:00 POD 2 S: Tolerating regular diet, on oral pain medications well. Also feels markedly improved after transfusion yesterday. She is ready to go home. O: VSS afebrile Abdomen: Positive bowel sounds appropriately tender. Incision clean dry intact with may. Labs: Noted A: Good postoperative course status post primary delivery. P: 1. Discharge home later today if baby is able to leave 2. Continue oral antibiotics for 14 day course 3. Return to office as scheduled/instructions are given for concerns that she should call OB - PN: Obj Data Labs 06/25/24 06:00 06/25/24 06:00 Labs: Laboratory Results - last 24 hr 06/21/24 06/24/24 06/25/24 17:41 05:03 06:00 WBC 11.8 H RBC 2.80 L Hgb 9.2 L Hct 27.5 L MCV 98.2 D MCH 32.9 MCHC 33.5 RDW 16.4 H Plt Count 152 MPV 10.8 H Immature Gran % (Auto) 1.4 H Neut % (Auto) 78.5 H Lymph % (Auto) 14.2 L Davie % (Auto) 4.3 Eos % (Auto) 1.2 Baso % (Auto) 0.4 Lymph # (Auto) 1.68 Davie # (Auto) 0.5 Eos # (Auto) 0.1 Baso # (Auto) 0.1 Abs Immat Gran (auto) 0.17 H Absolute Neuts (auto) 9.3 H Absolute Nucleated RBC 0.000 Nucleated RBC % 0.0 Creatinine 0.57 L Estim Creat Clear Calc 144 Estimated GFR > 60 Blood Type O Negative O Negative Antibody Screen Negative Negative Screen Negative Baby's Blood Type A pos Baby's YARI Positive Doses of RhIg Required 1 Crossmatch See Detail OB - PN A/P Time Spent With Patient Time: Total time spent is greater than 50% in coordination of care (as documented) at patient's floor/unit and/or counseling patient:
--- NOTE | 2024-06-25 09:08 | P.DS_ITS ---
DS: Admitting Diagnosis Discharge Date 06/25/2024 Admitting Diagnosis DS: Discharge Diagnosis Discharge Diagnosis (1) , delivered: Code(s): O80 - Encounter for full-term uncomplicated delivery Status: Acute (2) 40 weeks gestation of : Code(s): Z3A.40 - 40 weeks gestation of Status: Acute (3) Maternal fever affecting labor: Code(s): O75.2 - Pyrexia during labor, not elsewhere classified Status: Acute (4) tachycardia: Status: Acute (5) Arrested labor: Code(s): O62.1 - Secondary uterine inertia Status: Acute OB - DS: Summary OB Procedures : None OB Procedures Intrapartum: low cervical, transverse OB Procedures: : Transfusion and Antibiotics Peripartum Data Procedures: Procedures Operation Date: 06/23/24 00:30 Actual Procedure Side Surgeon p Section Jose Carlos Alberto MD Time Spent with Patient Time attestation: Total time spent providing and/or coordinating discharge services: DS: Data Data Completed and Pending Pending studies at discharge: Pending at discharge 06/23/24 08:54 Surgical [PTH] Routine Labs on day of discharge: Labs from last 24 hours 06/25/24 06/24/24 06/21/24 06:00 05:03 17:41 WBC 11.8 H RBC 2.80 L Hgb 9.2 L Hct 27.5 L MCV 98.2 D MCH 32.9 MCHC 33.5 RDW 16.4 H Plt Count 152 MPV 10.8 H Immature Gran % (Auto) 1.4 H Neut % (Auto) 78.5 H Lymph % (Auto) 14.2 L Mcintosh % (Auto) 4.3 Eos % (Auto) 1.2 Baso % (Auto) 0.4 Lymph # (Auto) 1.68 [place]osh # (Auto) 0.5 Eos # (Auto) 0.1 Baso # (Auto) 0.1 Abs Immat Gran (auto) 0.17 H Absolute Neuts (auto) 9.3 H Absolute Nucleated RBC 0.000 Nucleated RBC % 0.0 Creatinine 0.57 L Estim Creat Clear Calc 144 Estimated GFR > 60 Blood Type O Negative O Negative Antibody Screen Negative Negative Screen Negative Baby's Blood Type A pos Baby's YARI Positive Doses of RhIg Required 1 Crossmatch See Detail Discharge Plan Discharge Discharging Clinician: Jose Carlos Alberto Activity: may shower, follow weight bearing status and pelvic rest Diet: as tolerated Wound Care Instructions: follow printed instructions Discharge Instructions: Remove may on hospital postop visit Patient Language: Omani Follow-up/Referrals: Jose Carlos Alberto MD [Physician] - 3 Weeks Discharge Medications: New hydrocodone-acetaminophen 5-325 mg Tablet 1 tablet PO Q6H PRN (Reason: Breakthrough Pain Rated 4-6) Qty: 20 0RF ibuprofen 600 mg Tablet 600 mg PO Q6H Qty: 30 0RF Continued vit 45-ofgv-jqlcr-dha 65-1-250 mg combo pack 1 pkg PO DAILY Discontinued Unisom (doxylamine) 25 mg tablet 25 mg PO QHS PRN (Reason: Insomnia) aspirin [Adult Low Dose Aspirin] 81 mg tablet,delayed release (DR/EC) 81 mg PO DAILY Date of admission: 06/21/24 16:49 Primary Care Provider: MUNADONOVAN Admitting Provider: Jose Carlos Alberto Attending physician on admission: Jose Carlos Alberto Condition: Stable
[2024-06-25] MEDS: ACETAMINOPHEN 325 MG TABLET 650 MG PO (11:08)
[2024-06-27 11:07] VITALS: BP 133/83; PULSE 76; RESP 18; TEMP 36.7; O2SAT 100
--- OUTSIDE RECORDS SUMMARY | 2024-06-28 07:34 | XMS_ITS | Clinical Summary ---
Author Organization [facility] Address [address] [place] [address] Care Team Providers Care Software Manager Name Role Phone Unavailable Primary Care Provider Unavailabl e Source Comments [facility],non-owned Affiliates and Associated Physician Practices is amultiple site organization consisting of ambulatory clinics and hospital sitesin [place], [place], [place] and [place]. This disclosure is being madepursuant to the Care Everywhere program and may not contain all information available regarding this patient. Last updated 18.[facility] [employer] Allergies No known active allergies Encounters Date Type Department Care Team Description 03/30/2024 7:27 AM CDT - 03/30/2024 11:59 PM CDT Hospital Encounter [facility] M[facility] Care [address] [place] [id number] Isma Hernandez DO PICTURES EDITOR Discharge Disposition: Home or Self Care from Last 3 Months Social History Tobacco Use Types Packs/Day Years Used Date Smoking Tobacco: Never Assessed Estimated Date of Delivery Comme nts Yes 06/22/2024 Based on last me nstrual period of 09/16/2023 Sex and Gender Information Value Date Recorded Sex Assigned at Not on file Gender Identity Not on file Sexual Orientation Not on file Plan of Treatment Health Maintenance Due Date Last Done Comments PAP SMEAR 1990 HIV SCREENING 02/25/2003 HEPATITIS C SCREENING 02/21/2006 DTAP/TDAP/TD VACCINES (1 - Tdap) 02/25/2007 HEPATITIS B VACCINE (1 of 3 - 19+ 3-dose series) 02/25/2007 COVID-19 VACCINE (2023-2 5 season) 2024 INFLUENZA VACCINE (#1) 2024 OB-ONE HOUR GLUCOSE 03/16/2024 OB-TDAP CURRENT 03/23/2024 OB-RHOGAM INJECTION 03/30/2024 OB-GROUP B STREP SCREEN 05/18/2024 DEPRESSION SCREENING 06/17/2024 ZOSTER VACCINE (1 of 2) 02/25/2038 HIB VACCINE Aged Out No longer eligi ble based on patient's age to complete this topic HPV VACCINE Aged Out No longer eligi ble based on patient's age to complete this topic MENINGOCOCCAL VACCINE Aged Out No key david eligible based on patient's age to complete this topic PNEUMOCOCCAL VACCINE Aged Out No long er eligible based on patient's age to complete this topic Respiratory Syncytial Virus (RSV) Vaccine Pt: or over 60 yrs (No Doses Required) Completed Procedures Procedure Name Priority Date/Time Associated Diagnosis Comments SONOGRAM - COMPLETE Routine 03/30/2024 7 :28 AM CDT BMI 31.0-31.9,adult Third (HCC) Encounter for ultrasound to assess growth (HCC) from Last 3 Months Results * SONOGRAM - COMPLETE (03/30/2024 7:28 AM CDT) Anatomical Region Laterality Modality Other 03/30/2024 7:28 AM CDT Narrative 03/30/2024 8:56 AM CDT ? [facility] ?Maternal and Care Center ?PHONE: ??FAX: Diandra. Name: ?PATRICIA MCKEON No: ?[id number] Study Date: ?? 03/30/2024 ??7:28am , Age: ? 1990, 34 Pregnancies: ?? 3, Para 1011 Height: ? 67 in Weight: ? 198 lb LMP: ?09/16/2023 GA by LMP: ?28w0d GA by Base: ?? 28w0d ?? DHRUV: 06/22/2024 GA by US: ? 28w5d ?? DHRUV: 06/17/2024 GA Selected: ??28w0d (LMP) DHRUV: ?06/22/2024 Referring MD: Jose Carlos Alberto MD Data Visualization Developer: ??Keli Trujillo RDMS CPT4: ? 61777 BMI: ?31.01 Hist/Ind: ? Incomplete Anatomy Screen ?AMA: LR NIPT ?Class I Obesity MEASUREMENTS & AGE ? GROWTH EVALUATION Measurement ??GA ? Range ? Srce %for GA Ratios ----- ---- ------- BPD ??7.5 cm 30w0d (78o6b-25v4r) Hadl BPD 91% FL/BPD 0.70 (0.71 - 0.87* HC ??25.9 cm 28w1d (95d8i-32v2r) Hadl HC ??25% FL/AC ??0.22 (0.20 - 0.24) AC ??24.4 cm 28w4d (28l4l-62v7z) Hadl AC ??60% HC/AC ??1.06 (0.99 - 1.18) FL ?? 5.3 cm 28w0d (87y1w-72t9q) Hadl FL ??33% CI ? 0.85 (0.70 - 0.86) HL ?? 4.8 cm 28w3d (69s9d-51g2d) Alfonso HL ??57% GA for sonogram 28w5d (63s9c-85o7c) ?? Weight Estimate: based on (BPD,HC,AC,FL) Avg ?Weight: 1227 gm (1048-1407gm) Had ? : 2lbs, 11oz ? Normal: 1211 gm (908- 1513gm) Hadl ? Wt% ? 54% for 28w0d Heart Rate: 139 bpm Amniotic Fluid Index: 15.5cm (09.4-22.8) Q1: 4.5cm ??Q2: 4.5cm ??Q3: 3.6cm ??Q4: 2.9cm ?? PROCEDURE, TECHNIQUE Technique: transabdominal EVAL, PLACENTA Presentation: cephalic Placenta: left lateral Heart Rate: 139 bpm Amniotic Fluid Volume: normal Anatomy!Normal!Abnormal!Suboptimal!Prev. Seen!Comments Cranium ?! ?! ?! ?! ? x ?! Mdl (CSP/Thal! ?! ?! ?! ? x ?! Ventricles ?? ! ?! ?! ?! ? x ?! Choroid Plexu! ?! ?! ?! ? x ?! Cerebellum ?? ! ?! ?! ?! ? x ?! Cisterna M. ??! ?! ?! ?! ? x ?! Nuchal Fold ??! ?! ?! ?! ? x ?! Orbits ? ! ?! ?! ?! ? x ?! Profile ?! ?! ?! ?! ? x ?! Nasal Bone ?? ! ?! ?! ?! ? x ?! Lip ?! ?! ?! ?! ? x ?! Spine ?! ?! ?! ?! ? x ?! Lungs ?! ?! ?! ?! ? x ?! 4 Chamber Hea! ?? x ??! ?! ?! ? x ?! LVOT ? ! ?! ?! ?! ? x ?! RVOT ? ! ?? x ??! ?! ?! ?! 3 Vessel View! ?! ?! ?! ? x ?! 3 Vessel Trac! ?! ?! ?! ? x ?! Cross-over ?? ! ?! ?! ?! ? x ?! Ductal Arch ??! ?! ?! ?! ? x ?! Aortic Arch ??! ?! ?! ?! ? x ?! Caval View ?? ! ?! ?! ?! ? x ?! Situs ?! ?! ?! ?! ? x ?! Diaphragm ?! ?! ?! ?! ? x ?! Stomach ?! ?? x ??! ?! ?! ? x ?! Bowel ?! ?! ?! ?! ? x ?! Kidneys ?! ?? x ??! ?! ?! ? x ?! Bladder ?! ?? x ??! ?! ?! ? x ?! 3 Vessel Cord! ?! ?! ?! ? x ?! Cord In! ?! ?! ?! ? x ?! Upper Extremi! ?! ?! ?! ? x ?! Lower Extremi! ?! ?! ?! ? x ?! Feet ? ! ?! ?! ?! ? x ?! External Swati! ?! ?! ?! ? x ?! Placental Cor! ?? x ??! ?! ?! ?! Maternal Adne! ?! ?! ?! ? x ?! CLINICAL SUMMARY Here today for completion of anatomical survey. ??She is AMA and had opted for NIPT which was reported as low risk. A single fetus is seen in cephalic presentation. ??The measurements today are consistent with appropriate interval growth. ??The DHRUV is based on LMP and prior ultrasound examination. ??The amniotic fluid volume is within normal limits. Normal appearing left lateral placenta. ?? The remainder of the anatomical survey showed no gross abnormalities. IMPRESSION: Single, live, intrauterine at 28w0d ?? size is within normal limits ?? Amniotic fluid volume: within normal limits ?? No major malformations were seen within the limitations of ultrasound. ??The anatomical survey is now complete. ?? Both ultrasound and screening/testing have their limitations in detecting all congenital anomalies and chromosomal abnormalities/inherited disorders or genetic syndromes. ?? RECOMMEND: Due to AMA recommend interval growth ultrasounds every 4-6 weeks starting at 34 weeks and depending on those findings also determine need for additional testing. Thank you for allowing us the opportunity to care for your patient. ?? Isma Hernandez, DO <Electronic Signature> ??03/30/2024 08:55am Jose Carlos Alberto MD [facility] ORDERABLES from Last 3 Months
--- OUTSIDE RECORDS SUMMARY | 2024-06-28 07:35 | XMS_ITS | Encounter Summary ---
Author Organization [facility] Address [address] [place] [address] Care Team Providers Care Financial Institution Vice President Name Role Phone Unavailable Primary Care Provider Unavailabl e Reason for Referral * (Routine) - Open Specialty Diagnoses / Procedures Referred By Contac t Referred To Contact Diagnoses BMI 31.0-31.9,adult Third (HCC) Encounter for ultrasound to assess growth (HCC) Procedures [place]ONO[place] [address] [place] [address] [address] [place] [address] Referral ID Status Reason Start Date Expiration Date Visits Re quested Visits Authorized [id number] Open 03/27/2024 03/27/2025 1 1 * (Routine) - Open Specialty Diagnoses / Procedures Referred By Contac t Referred To Contact Diagnoses BMI 31.0-31.9,adult Third (HCC) Encounter for ultrasound to assess growth (HCC) Procedures SONOGRAM - COMPLETE Jose Carlos Alberto MD [address] [place] [address] Referral ID Status Reason Start Date Expiration Date Visits Re quested Visits Authorized [id number] Open 03/27/2024 03/27/2025 1 1 Reason for Visit * Reason Comments Ultrasound Encounter Details Date Type Department Care Team (Latest Contact Info) Description 03/30/2024 7:27 AM CDT - 03/30/2024 11:59 PM CDT Hospital Encounter [facility] Maternal & Care [address] [place] [address] Isma Hernandez DO [address] [phone] [employer]MB[employer]AME MAKER Discharge Disposition: Home or Self Care Social History Tobacco Use Types Packs/Day Years Used Date Smoking Tobacco: Never Assessed Estimated Date of Delivery Comme nts Yes 06/22/2024 Based on last me nstrual period of 09/16/2023 Sex and Gender Information Value Date Recorded Sex Assigned at Not on file Gender Identity Not on file Sexual Orientation Not on file documented as of this encounter Plan of Treatment Not on file documented as of this encounter Procedures Procedure Name Priority Date/Time Associated Diagnosis Comments SONOGRAM - COMPLETE Routine 03/30/2024 7 :28 AM CDT BMI 31.0-31.9,adult Third (HCC) Encounter for ultrasound to assess growth (HCC) documented in this encounter Results * SONOGRAM - COMPLETE (03/30/2024 7:28 AM CDT) Anatomical Region Laterality Modality Other 03/30/2024 7:28 AM CDT Narrative 03/30/2024 8:56 AM CDT ? [facility] ?Maternal and Care Center ?PHONE: ??FAX: Diandra. Name: ?PATRICIA MCKEON No: ?[id number] Study Date: ?? 03/30/2024 ??7:28am , Age: ? 1990, 34 Pregnancies: ?? 3, Para 1011 Height: ? 67 in Weight: ? 198 lb LMP: ?09/16/2023 GA by LMP: ?28w0d GA by Base: ?? 28w0d ?? DHRUV: 06/22/2024 GA by US: ? 28w5d ?? DHRUV: 06/17/2024 GA Selected: ??28w0d (LMP) DHRUV: ?06/22/2024 Referring MD: Jose Carlos Alberto MD Public Speaker: ??Keli Trujillo RDMS CPT4: ? 21336 BMI: ?31.01 Hist/Ind: ? Incomplete Anatomy Screen ?AMA: LR NIPT ?Class I Obesity MEASUREMENTS & AGE ? GROWTH EVALUATION Measurement ??GA ? Range ? Srce %for GA Ratios ----- ---- ------- BPD ??7.5 cm 30w0d (56a4f-74s4b) Hadl BPD 91% FL/BPD 0.70 (0.71 - 0.87* HC ??25.9 cm 28w1d (93d2w-74g2s) Hadl HC ??25% FL/AC ??0.22 (0.20 - 0.24) AC ??24.4 cm 28w4d (89n9l-75y7m) Hadl AC ??60% HC/AC ??1.06 (0.99 - 1.18) FL ?? 5.3 cm 28w0d (00r9v-09v6b) Hadl FL ??33% CI ? 0.85 (0.70 - 0.86) HL ?? 4.8 cm 28w3d (57x3q-06e3p) Alfonso HL ??57% GA for sonogram 28w5d (41q8v-85u5x) ?? Weight Estimate: based on (BPD,HC,AC,FL) Avg [...] care for your patient. ?? Isma Hernandez, <Electronic Signature> ??03/30/2024 08:55am Jose Carlos Alberto MD [facility] ORDERABLES documented in this encounter Visit Diagnoses Diagnosis Encounter for follow-up ultrasound of anatomy (HCC)- Primary BMI 31.0-31.9,adult Body Mass Index 31.0-31.9, adult Third (HCC) state, incidental Encounter for ultrasound to assess growth (HCC) documented in this encounter
--- OUTSIDE RECORDS SUMMARY | 2024-06-28 07:35 | XMS_ITS | Encounter Summary ---
Author Organization [facility] Address [address] [place] [address] Care Team Providers Care Sports Instructor Name Role Phone Unavailable Primary Care Provider Unavailabl e Reason for Referral * (Routine) - Open Specialty Diagnoses / Procedures Referred By Contac t Referred To Contact Diagnoses Encounter for follow-up ultrasound of anatomy (HCC) BMI 31.0-31.9,adult Third (HCC) Procedures SONOGRAM - COMPLETE Jose Carlos Alberto MD [address] [facility] [address] [place] [address] Referral ID Status Reason Start Date Expiration Date Visits Re quested Visits Authorized [id number] Open 02/24/2024 02/23/2025 1 1 * (Routine) - Open Specialty Diagnoses / Procedures Referred By Contac t Referred To Contact Diagnoses Encounter for follow-up ultrasound of anatomy (HCC) BMI 31.0-31.9,adult Third (HCC) Procedures SONOGRAM - COMPLETE Jose Carlos Alberto MD [address] [facility] [address] [place] [address] Referral ID Status Reason Start Date Expiration Date Visits Re quested Visits Authorized [id number] Open 02/24/2024 02/23/2025 1 1 Reason for Visit * Reason Comments Ultrasound Encounter Details Date Type Department Care Team (Latest Contact Info) Description 03/02/2024 7:30 AM CDT - 03/02/2024 11:59 PM CDT Hospital Encounter [facility]'s Health Maternal & Care [address] [place], [place] [id number] Head, Lin Glover MD [address] [facility] [address] [place] [address] Discharge Disposition: Home or Self Care Social [...] Associated Diagnosis Comments SONOGRAM - COMPLETE Routine 03/02/2024 7 :37 AM CDT Encounter for follow-up ultrasound of anatomy (HCC) BMI 31.0-31.9,adult Third (HCC) documented in this encounter Results * SONOGRAM - COMPLETE (03/02/2024 7:37 AM CDT) Anatomical Region Laterality Modality Other 03/02/2024 7:37 AM CDT Narrative 03/02/2024 8:22 AM CDT ? [facility] ?Maternal and Care Center ?PHONE: ??FAX: Pat. Name: ?PATRICIA CMKEON No: ?[id number] Study Date: ?? 03/02/2024 ??7:37am , Age: ? 1990, 34 Pregnancies: ?? 3, Para 1, Ab 1 Height: ? 67 in Weight: ? 198 lb LMP: ?09/16/2023 GA by LMP: ?24w0d GA by Base: ?? 24w0d ?? DHRUV: 06/22/2024 GA by US: ? 24w1d ?? DHRUV: 06/21/2024 GA Selected: ??24w0d (LMP) DHRUV: ?06/22/2024 Referring MD: Jose Carlos Alberto MD Cartridge Assembler: ??Yeny Cortés RDMS CPT4: ? 67288 BMI: ?31.01 Hist/Ind: ? Anatomy Incomplete ?AMA ?Obesity ?Patient reported low risk NIPT MEASUREMENTS & AGE ? GROWTH EVALUATION Measurement ??GA ? Range ? Srce %for GA Ratios ----- ---- ------- BPD ??6.3 cm 25w3d (78l0g-39n8o) Hadl BPD 87% FL/BPD 0.67 (0.71 - 0.87* HC ??22.6 cm 24w4d (79u0m-91d9x) Hadl HC ??56% FL/AC ??0.21 (0.20 - 0.24) AC ??20.0 cm 24w4d (42s6r-13d0n) Hadl AC ??61% HC/AC ??1.13 (1.02 - 1.21) FL ?? 4.2 cm 23w4d (60o7m-10u8i) Hadl FL ??26% CI ? 0.80 (0.70 - 0.86) HL ?? 4.0 cm 24w2d (27q8b-25q3q) Alfonso HL ??55% GA for sonogram 24w1d (42n9d-99h3b) ?? Weight Estimate: based on (BPD,HC,AC,FL) Hadlock ?Weight: 683 gm (583-782gm) Hadloc ? : 1lbs, 8oz ? Normal: 671 gm (503-838gm) Hadloc ? Wt% ? 56% for 24w0d Heart Rate: 149 bpm Amniotic Fluid Index: 07.1cm (Deepest Pocket) PROCEDURE, TECHNIQUE Technique: transabdominal EVAL, PLACENTA Presentation: breech Placenta: left lateral Heart Rate: 149 bpm Amniotic Fluid Volume: normal Anatomy!Normal!Abnormal!Suboptimal!Prev. Seen!Comments [...] ?! ?! ? x ?! Lip ?! ?? x ??! ?! ?! ?! Spine ?! ?? x ??! ?! ?! ?! Lungs ?! ?! ?! ?! ? x ?! 4 Chamber Hea! ?? x ??! ?! ?! ?! LVOT ? ! ?? x ??! ?! ?! ?! RVOT ? ! ?! ?! ? x ?! ?! 3 Vessel View! ?? x ??! ?! ?! ?! 3 Vessel Trac! ?? x ??! ?! ?! ?! Cross-over ?? ! ?? x ??! ?! ?! ?! Ductal Arch ??! ?? x ??! ?! ?! ?! Aortic Arch ??! ?? x ??! ?! ?! ?! Caval View ?? ! ?? x ??! ?! ?! ?! Situs ?! ?? x ??! ?! ?! ?! Diaphragm ?! ?! ?! ?! ? x ?! Stomach ?! ?! ?! ?! ? x ?! Bowel ?! ?! ?! ?! ? x ?! Kidneys ?! ?! ?! ?! ? x ?! Bladder ?! ?! ?! ?! ? x ?! 3 Vessel Cord! ?! ?! ?! ? x ?! Cord In! ?! ?! ?! ? x ?! Upper Extremi! ?! ?! ?! ? x ?! Lower Extremi! ?! ?! ?! ? x ?! Feet ? ! ?! ?! ?! ? x ?! External Swati! ?! ?! ?! ? x ?! Placental Cor! ?! ?! ? x ?! ?! CLINICAL SUMMARY A single fetus is seen in breech presentation. ??The measurements today are consistent with appropriate growth for the DHRUV provided. ??The DHRUV is based on LMP. ??The amniotic fluid volume is within normal limits. ?? IMPRESSION: Single, live, intrauterine at 24w0d ?? size is within normal limits ?? Amniotic fluid volume: within normal limits ?? No malformations were seen within the limitations of ultrasound. ?? Ultrasound cannot exclude all structural and genetic defects. RECOMMEND: Ultrasound in 4 weeks for growth assessment and completion of the anatomic survey Thank you for allowing us the opportunity to care for your patient. ?? Lin Patel MD <Electronic Signature> ??03/02/2024 08:22am Jose Carlos Alberto MD [facility] ORDERABLES documented in this encounter Visit Diagnoses Diagnosis Encounter for follow-up ultrasound of anatomy (HCC)- Primary BMI 31.0-31.9,adult Body Mass Index 31.0-31.9, adult Third (HCC) state, incidental documented in this encounter
--- OUTSIDE RECORDS SUMMARY | 2024-06-28 07:35 | XMS_ITS | Patient Health Summary ---
Author Organization [facility] Address [address] [place] [address] Care Team Providers Care Lunchroom Aide Name Role Phone Unavailable Primary Care Provider Unavailabl e Note from [facility],non-owned Affiliates and Associated Physician Practices is amultiple site organization consisting of ambulatory clinics and hospital sitesin [place], [place], [place] and [place]. This disclosure is being madepursuant to the Care Everywhere program and may not contain all information available regarding this patient. Last updated 18.[facility] Allergies No known active allergies Social History Tobacco Use Types Packs/Day Years Used Date Smoking Tobacco: Never Assessed Estimated Date of Delivery Comme nts Yes 06/22/2024 Based on last me nstrual period of 09/16/2023 Sex and Gender Information Value Date Recorded Sex Assigned at Not on file Gender Identity Not on file Sexual Orientation Not on file Procedures * SONOGRAM - COMPLETE(Performed 03/30/2024) Performed for BMI 31.0-31.9,adult, Third ([facility]), Encounter for ultrasound to assess growth ([facility]) * SONOGRAM - COMPLETE(Performed 03/02/2024) Performed for Encounter for follow-up ultrasound of anatomy ([facility]), BMI 31.0-31.9,adult, Thirdpregnancy ([facility]) * SONOGRAM - COMPLETE(Performed 02/03/2024) Performed for Encounter for anatomic survey ([facility]), BMI 31.0-31.9,adult * SONOGRAM - COMPLETE(Performed 12/16/2023) Performed for Nuchal translucency of fetus on ultrasound ([facility]), Third ([facility]) Results * SONOGRAM - COMPLETE (03/30/2024 7:28 AM CDT) Only the most recent of4 resultswithin the time period is included. Anatomical Region Laterality Modality Other 03/30/2024 7:28 AM CDT Narrative 03/30/2024 8:56 AM CDT ? [facility] ?[facility] Care Center ?PHONE: ??FAX: Pat. Name: ?PATRICIA MCKEON. No: ?[id number] Study Date: ?? 03/30/2024 ??7:28am , Age: ? 1990, 34 Pregnancies: ?? 3, Para 1011 Height: ? 67 in Weight: ? 198 lb LMP: ?09/16/2023 GA by LMP: ?28w0d GA by Base: ?? 28w0d ?? DHRUV: 06/22/2024 GA by US: ? 28w5d ?? DHRUV: 06/17/2024 GA Selected: ??28w0d (LMP) DHRUV: ?06/22/2024 Referring MD: Jose Carlos Alberto MD Helium Arc Welder: ??Keli Trujillo RDMS CPT4: ? 40819 BMI: ?31.01 Hist/Ind: ? Incomplete Anatomy Screen ?AMA: LR NIPT ?Class I Obesity MEASUREMENTS & AGE ? GROWTH EVALUATION Measurement ??GA ? Range ? Srce %for GA Ratios ----- ---- ------- BPD ??7.5 cm 30w0d (70i6n-52n9n) Hadl BPD 91% FL/BPD 0.70 (0.71 - 0.87* HC ??25.9 cm 28w1d (49k7x-95l9j) Hadl HC ??25% FL/AC ??0.22 (0.20 - 0.24) AC ??24.4 cm 28w4d (27q9c-14e1j) Hadl AC ??60% HC/AC ??1.06 (0.99 - 1.18) FL ?? 5.3 cm 28w0d (25z7v-29o5t) Hadl FL ??33% CI ? 0.85 (0.70 - 0.86) HL ?? 4.8 cm 28w3d (09l5y-11z7p) Alfonso HL ??57% GA for sonogram 28w5d (15m0j-83i7n) ?? Weight Estimate: based on (BPD,HC,AC,FL) Avg [...] opportunity to care for your patient. ?? sIma Hernandez DO <Electronic Signature> ??03/30/2024 08:55am Jose Carlos Alberto MD [facility] ORDERABLES
--- OUTSIDE RECORDS SUMMARY | 2024-06-28 07:35 | XMS_ITS | Encounter Summary ---
Author Organization [facility] Address [address] [place] [address] Care Team Providers Care Beef Pusher Name Role Phone Unavailable Primary Care Provider Unavailabl e Reason for Referral * (Routine) - Open Specialty Diagnoses / Procedures Referred By Contac t Referred To Contact Diagnoses Nuchal translucency of fetus on ultrasound (HCC) Third (HCC) Procedures [place] [address] [place] [address] [address] [place] [address] Referral ID Status Reason Start Date Expiration Date Visits Re quested Visits Authorized [id number] Open 12/10/2023 12/09/2024 1 1 * (Routine) - Open Specialty Diagnoses / Procedures Referred By Contac t Referred To Contact Diagnoses Nuchal translucency of fetus on ultrasound (HCC) Third (HCC) Procedures SONOGRAM - COMPLETE Jose Carlos Alberto MD [address] [place] [address] Referral ID Status Reason Start Date Expiration Date Visits Re quested Visits Authorized [id number] Open 12/10/2023 12/09/2024 1 1 Reason for Visit * Reason Comments Ultrasound Encounter Details Date Type Department Care Team (Latest Contact Info) Description 12/16/2023 9:36 AM CDT - 12/16/2023 11:59 PM CDT Hospital Encounter [facility]aternal & Care [address] [id number] Teto Valerio MD [address] [place] [address] Head, Lin Glover MD [address] [place] [address] Discharge Disposition: Home or Self [...] Associated Diagnosis Comments SONOGRAM - COMPLETE Routine 12/16/2023 9:49 AM CDT Nuchal translucency of fetus on ultrasound (HCC) Third (HCC) documented in this encounter Results * SONOGRAM - COMPLETE (12/16/2023 9:49 AM CDT) Anatomical Region Laterality Modality Other 12/16/2023 9:49 AM CDT Narrative 12/16/2023 10:36 AM CDT ? [facility] ?Maternal and Care Center ?PHONE: ??FAX: Pat. Name: ?PATRICIA MCKEON Diandra. No: ?[id number] Study Date: ?? 12/16/2023 ??9:49am , Age: ? 1990, 33 Pregnancies: ?? 3, Para 1, Ab 1 Height: ? 67 in Weight: ? 198 lb LMP: ?09/16/2023 GA by LMP: ?13w0d GA by US: ? 13w2d ?? DHRUV: 06/20/2024 GA Selected: ??13w0d (LMP) DHRUV: ?06/22/2024 Referring MD: Jose Carlos Alberto MD Line Service Person: ??Marija Meade, RDMI, RDCS CPT4: ? 65728,02694 BMI: ?31.01 Hist/Ind: ? AMA ?Nuchal translucency ?Obesity ?Patient reported low risk NIPT MEASUREMENTS & AGE ? GROWTH EVALUATION Measurement ??GA ? Range ? Srce %for GA Ratios ----- ---- ------- CRL ??7.1 cm 13w2d (23b0k-21u1n) Hadl CRL 61% GA for sonogram 13w2d (01v4l-17h2c) based on (CRL) Avg ? Heart Rate: 163 bpm PROCEDURE, TECHNIQUE Technique: transabdominal EVAL, PLACENTA Location: intrauterine Gestational Sac: normal Yolk Sac: not seen Heart Rate: 163 bpm MATERNAL ANATOMY Ovaries LxHxW (cm) Right 3.1 x 1.6 x 2.6 Vol: 6.6cc Desc: Appears normal Left 3.7 x 1.7 x 2.5 Vol: 8.2cc Desc: Appears normal Anatomy!Seen!Not Seen!Comments Myometrium ?? ! ??x ! ?! Right Ovary ??! ??x ! ?! Left Ovary ?? ! ??x ! ?! Cul de sac ?? ! ??x ! ?! Calvarium* ?? ! ??x ! ?! Midline Falx*! ??x ! ?! 4th Ventricle! ??x ! ?! Lateral Ventr! ??x ! ?! Choroid Plexu! ??x ! ?! Nasal Bone* ??! ??x ! ?! Neck/Dorsum* ! ??x ! ?! 4 CH* ?! ??x ! ?! Abdominal Cor! ??x ! ?! Diaphragm* ?? ! ??x ! ?! Spine* ? ! ??x ! ?! Stomach* ? ! ??x ! ?! Kidneys* ? ! ??x ! ?! Bladder* ? ! ??x ! ?! Upper Extremi! ??x ! ?! Lower Extremi! ??x ! ?! CLINICAL SUMMARY TAUS was ??used to image single intrauterine with cardiac activity. ??There is no free fluid seen in the pelvis. ??The right ovary appears normal. ??The left ovary appears normal. The nuchal translucency measures 1.8 mm. IMPRESSION: Single, live, intrauterine at ??13w0d RECOMMEND: Follow up ultrasound at 20 weeks to evaluate anatomy and transvaginal cervical screening. Thank you for allowing us the opportunity to care for your patients Lin Patel MD <Electronic Signature> ??12/16/2023 10:36am Jose Carlos Alberto MD [facility] ORDERABLES documented in this encounter Visit Diagnoses Diagnosis Nuchal translucency of fetus on ultrasound (HCC)- Primary Third (HCC) state, incidental documented in this encounter
--- OUTSIDE RECORDS SUMMARY | 2024-06-28 07:35 | XMS_ITS | Encounter Summary ---
Author Organization [facility] Address [address] [place] [address] Care Team Providers Care Service Learning Coordinator Name Role Phone Unavailable Primary Care Provider Unavailabl e Reason for Referral * (Routine) - Pending Review Specialty Diagnoses / Procedures Referred By Contac t Referred To Contact Diagnoses Encounter for anatomic survey (HCC) BMI 31.0-31.9,adult Procedures SONOGRAM - COMPLETE Jose Carlos Alberto MD [address] [place] [address] Referral ID Status Reason Start Date Expiration Date V isits Requested Visits Authorized [id number] Pending Review 01/27/2024 01/26/2025 1 1 * (Routine) - Pending Review Specialty Diagnoses / Procedures Referred By Contac t Referred To Contact Diagnoses Encounter for anatomic survey (HCC) BMI 31.0-31.9,adult Procedures SONOGRAM - COMPLETE Jose Carlos Alberto MD [address] [place] [address] Referral ID Status Reason Start Date Expiration Date V isits Requested Visits Authorized [id number] Pending Review 01/27/2024 01/26/2025 1 1 Reason for Visit * Reason Comments Ultrasound Encounter Details Date Type Department Care Team (Latest Contact Info) Description 02/03/2024 2:20 PM CDT - 02/03/2024 11:59 PM CDT Hospital Encounter [facility] Maternal & Care [facility] [place] [address] Head, Lin Glover MD [address] [place] [address] Giuliano Silverman MD [address] [place] [address] Discharge Disposition: Home or Self Care Social [...] Associated Diagnosis Comments SONOGRAM - COMPLETE Routine 02/03/2024 2 :27 PM CDT Encounter for anatomic survey (HCC) BMI 31.0-31.9,adult documented in this encounter Results * SONOGRAM - COMPLETE (02/03/2024 2:27 PM CDT) Anatomical Region Laterality Modality Other 02/03/2024 2:27 PM CDT Narrative 02/03/2024 4:25 PM CDT ? [facility] ?Maternal and Care Center ?PHONE: ??FAX: Pat. Name: ?MCKEONPATRICIA MCDOWELL Diandra. No: ?[id number] Study Date: ?? 02/03/2024 ??2:27pm , Age: ? 1990, 33 Pregnancies: ?? 3, Para 1, Ab 1 Height: ? 67 in Weight: ? 198 lb LMP: ?09/16/2023 GA by LMP: ?20w0d GA by Base: ?? 20w0d ?? DHRUV: 06/22/2024 GA by US: ? 20w1d ?? DHRUV: 06/21/2024 GA Selected: ??20w0d (LMP) DHRUV: ?06/22/2024 Referring MD: Jose Carlos Alberto MD Nurse Emergency: ??Derek Ortega RDMS CPT4: ? 28785,56176 BMI: ?31.01 Hist/Ind: ? Anatomy ?AMA ?Obesity ?Patient reported low risk NIPT MEASUREMENTS & AGE ? GROWTH EVALUATION Measurement ??GA ? Range ? Srce %for GA Ratios ----- ---- ------- BPD ??4.9 cm 20w5d (64p4n-47l4o) Hadl BPD 78% FL/BPD 0.64 HC ??18.3 cm 20w5d (57k3u-49s9a) Hadl HC ??73% FL/AC ??0.20 AC ??15.7 cm 20w6d (42n9l-87a7o) Hadl AC ??71% HC/AC ??1.17 (1.06 - 1.24) FL ?? 3.1 cm 19w5d (70p7d-27o8g) Hadl FL ??33% CI ? 0.75 (0.70 - 0.86) HL ?? 3.1 cm 20w2d (82p1d-63j9l) Alfonso HL ??55% Cere 2.0 cm 19w4d (55p8a-53c2r) Hill Cere38% GA for sonogram 20w1d (23p8l-81f4t) ?? Weight Estimate: based on (BPD,HC,AC,FL) Hadlock ?Weight: 350 gm (299-401gm) Hadloc ? : 0lbs, 12oz ? Normal: 331 gm (248-414gm) Hadloc ? Wt% ? 67% for 20w0d Cervix: ??Length: 5.7 cm ??Approach: transvaginal ??Funneling: not present Heart Rate: 133 bpm Amniotic Fluid Index: 05.2cm (Deepest Pocket) PROCEDURE, TECHNIQUE Procedure: Second trimester exam Technique: transabdominal EVAL, PLACENTA Presentation: variable Umbilical Cord: 3 Vessels Placenta: posterior Previa: no previa seen Heart Rate: 133 bpm Amniotic Fluid Volume: normal MATERNAL ANATOMY Right ??Desc: Suboptimal Left ??Desc: Suboptimal Anatomy!Normal!Abnormal!Suboptimal!Prev. Seen!Comments Cranium ?! ?? x ??! ?! ?! ?! Mdl (CSP/Thal! ?? x ??! ?! ?! ?! Ventricles ?? ! ?? x ??! ?! ?! ?! Choroid Plexu! ?? x ??! ?! ?! ?! Cerebellum ?? ! ?? x ??! ?! ?! ?! Cisterna M. ??! ?? x ??! ?! ?! ?! Nuchal Fold ??! ?? x ??! ?! ?! ?! Orbits ? ! ?? x ??! ?! ?! ?! Profile ?! ?? x ??! ?! ?! ?! Nasal Bone ?? ! ?? x ??! ?! ?! ?! Lip ?! ?! ?! ? x ?! ?! Spine ?! ?! ?! ? x ?! ?! Lungs ?! ?? x ??! ?! ?! ?! 4 Chamber Hea! ?! ?! ? x ?! ?! LVOT ? ! ?! ?! ? x ?! ?! RVOT ? ! ?! ?! ? x ?! ?! 3 Vessel View! ?! ?! ? x ?! ?! 3 Vessel Trac! ?! ?! ? x ?! ?! Cross-over ?? ! ?! ?! ? x ?! ?! Ductal Arch ??! ?! ?! ? x ?! ?! Aortic Arch ??! ?! ?! ? x ?! ?! Caval View ?? ! ?! ?! ? x ?! ?! Situs ?! ?! ?! ? x ?! ?! Diaphragm ?! ?? x ??! ?! ?! ?! Stomach ?! ?? x ??! ?! ?! ?! Bowel ?! ?? x ??! ?! ?! ?! Kidneys ?! ?? x ??! ?! ?! ?! Bladder ?! ?? x ??! ?! ?! ?! 3 Vessel Cord! ?? x ??! ?! ?! ?! Cord In! ?? x ??! ?! ?! ?! Upper Extremi! ?? x ??! ?! ?! ?! Hands ?! ?! ?! ? x ?! ?! Lower Extremi! ?? x ??! ?! ?! ?! Feet ? ! ?? x ??! ?! ?! ?! External Swati! ?? x ??! ?! ?! ?!Demonstrated, ?family does not ?wish to know ?gender Placental Cor! ?! ?! ? x ?! ?! CLINICAL SUMMARY A single fetus is seen in variable presentation. ??The measurements today are consistent with appropriate growth. ??The DHRUV is based on LMP and a prior ultrasound. ??The amniotic fluid volume is within normal limits. ?? IMPRESSION: Single, live, intrauterine at 20w0d ?? size is within normal limits ?? Amniotic fluid volume: within normal limits ?? No major malformations were seen within the limitations of ultrasound ?? Reassuring transvaginal cervical length ?? RECOMMEND: Ultrasound in 4 weeks for growth and completion of the anatomic survey ?? Thank you for allowing us the opportunity to care for your patient. ?? Giuliano Silverman MD <Electronic Signature> ??02/03/2024 04:25pm Jose Carlos Alberto MD [facility] ORDERABLES documented in this encounter Visit Diagnoses Diagnosis Encounter for anatomic survey (HCC)- Primary Encounter for anatomic survey BMI 31.0-31.9,adult Body Mass Index 31.0-31.9, adult documented in this encounter
--- OUTSIDE RECORDS SUMMARY | 2024-06-28 07:35 | XMS_ITS | Referral Summary ---
Author Organization [facility] Address [address] [place] [address] Care Team Providers Care Manufacturing Scheduler Name Role Phone Unavailable Primary Care Provider Unavailabl e Source Comments [facility],non-owned Affiliates and Associated Physician Practices is amultiple site organization consisting of ambulatory clinics and hospital sitesin [place], [place], [place] and [place]. This disclosure is being madepursuant to the Care Everywhere program and may not contain all information available regarding this patient. Last updated 18.[facility] Encounters Date Type Department Care Team Description 03/30/2024 7:27 AM CDT - 03/30/2024 11:59 PM CDT Hospital Encounter [facility] Maternal & Care [address] [place] [address] Isma Hernandez DO EXTRUSION LINE OPERATOR Discharge Disposition: Home or Self Care from Last 3 Months Allergies No known active allergies Social History Tobacco Use Types Packs/Day Years Used Date Smoking Tobacco: Never Assessed Estimated Date of Delivery Comme nts Yes 06/22/2024 Based on last me nstrual period of 09/16/2023 Sex and Gender Information Value Date Recorded Sex Assigned at Not on file Gender Identity Not on file Sexual Orientation Not on file Plan of Treatment Not on file Procedures Procedure Name Priority Date/Time Associated Diagnosis Comments SONOGRAM - COMPLETE Routine 03/30/2024 7 :28 AM CDT BMI 31.0-31.9,adult Third (HCC) Encounter for ultrasound to assess growth (HCC) from Last 3 Months Results * SONOGRAM - COMPLETE (03/30/2024 7:28 AM CDT) Anatomical Region Laterality Modality Other 03/30/2024 7:28 AM CDT Narrative 03/30/2024 8:56 AM CDT ? [facility] ?Maternal and Care Center ?PHONE: ??FAX: Pat. Name: ?PATRICIA MCKEON. No: ?[id number] Study Date: ?? 03/30/2024 ??7:28am , Age: ? 1990, 34 Pregnancies: ?? 3, Para 1011 Height: ? 67 in Weight: ? 198 lb LMP: ?09/16/2023 GA by LMP: ?28w0d GA by Base: ?? 28w0d ?? DHRUV: 06/22/2024 GA by US: ? 28w5d ?? DHRUV: 06/17/2024 GA Selected: ??28w0d (LMP) DHRUV: ?06/22/2024 Referring MD: Jose Carlos Alberto MD Decator Operator: ??Keli Trujillo RDMS CPT4: ? 30538 BMI: ?31.01 Hist/Ind: ? Incomplete Anatomy Screen ?AMA: LR NIPT ?Class I Obesity MEASUREMENTS & AGE ? GROWTH EVALUATION Measurement ??GA ? Range ? Srce %for GA Ratios ----- ---- ------- BPD ??7.5 cm 30w0d (28g3a-58r7e) Hadl BPD 91% FL/BPD 0.70 (0.71 - 0.87* HC ??25.9 cm 28w1d (33q4h-05p5i) Hadl HC ??25% FL/AC ??0.22 (0.20 - 0.24) AC ??24.4 cm 28w4d (08t3d-91h9f) Hadl AC ??60% HC/AC ??1.06 (0.99 - 1.18) FL ?? 5.3 cm 28w0d (82l0g-49e9r) Hadl FL ??33% CI ? 0.85 (0.70 - 0.86) HL ?? 4.8 cm 28w3d (67j9m-67l1k) Alfonso HL ??57% GA for sonogram 28w5d (36o9j-57x6f) ?? Weight Estimate: based on (BPD,HC,AC,FL) Avg [...] Signature> ??03/30/2024 08:55am Jose Carlos Alberto MD [facility] ORDERABLES from Last 3 Months
--- OUTSIDE RECORDS SUMMARY | 2024-06-28 07:37 | XMS_ITS | Clinical Summary ---
Author Organization [facility] Address [address] [place] [address]. [place], [place] [address] [place] [address] Care Team Providers Care Cafeteria Supervisor Name Role Phone Carlyn Mcpherson Primary Care Provider [phone] Allergies No known active allergies Medications Vitamin D3 (VITAMIN D) 50 mcg tablet Active Thiamine HCl (VITAMIN B-1) 250 MG Tab Active Sswgqmyq-Ndo-Ew- FA (PRE-MYLA FORMULA) Tab Take 1 tablet by mouth daily. 03/17/2023 Active Active Problems Problem Noted Date Diagnosed Date History of recurrent miscarriages, not currently 10/04/2023 Class 1 obesity due to exces s calories without serious comorbidity with body mass index (BMI) of 31.0 to 31.9 in adult 07/31/2022 Cyst, dermoid, leg, right 07/31/2022 Vitamin B 12 deficiency 05/05/2021 Vitamin D deficiency 05/05/2021 Cervical high risk HPV (human papillomavirus) te st positive 04/03/2021 Irregular periods 04/03/2021 Chronic nausea 04/03/2021 Resolved Problems Problem Noted Date Diagnosed Date Resolved Date Overweight with body mass in dex (BMI) of 28 to 28.9 in adult 04/03/2021 09/03/2022 Encounters Date Type Department Care Team Description 04/03/2024 Scan [facility] Scanned, [facility] (SCAN) from Last 3 Months Family History Medical History Relation Comments No Known Problems Father Diabetes Maternal Grandfather Cancer Maternal Grandmother Colon cance r Diabetes Maternal Grandmother No Known Problems Paternal Grandfather Diabetes Paternal Grandmother Hypertension Paternal Grandmother Stroke Paternal Grandmother Asthma Sister Relation Status Comments Father Alive Maternal Grandfather Maternal Grandmother Mother Alive Paternal Grandfather Paternal Grandmother Sister Alive Social History Tobacco Use Types Packs/Day Years Used Date Smoking Tobacco: Never Smokeless Tobacco: Never Tobacco Cessation:Counseling Given: Not Answered Alcohol Use Standard Drinks/Week Comments Yes 0 (1 standard drink = 0.6 oz pure alcohol) Socially- less than 1 time monthly PHQ-2 Answer Date Recorded Patient Health Questionnaire-2 Score 0 10/04/2023 Comments No Sex and Gender Information Value Date Recorded Sex Assigned at Not on file Legal Sex Female 11:20 AM CDT Gender Identity Not on file Sexual Orientation Not on file Last Filed Vital Signs Vital Sign Reading Time Taken Comments Blood Pressure 94/70 10/04/2023 10:03 AM CDT Pulse 67 10/04/2023 10:03 AM CDT Temperature 36.8 ??C (98.2 ??F) 10/04/2023 10:03 AM C DT Respiratory Rate 18 10/04/2023 10:03 AM CDT Oxygen Saturation 99% 10/04/2023 10:03 AM CDT Inhaled Oxygen Concentration - - Weight 89.9 kg (198 lb 3.2 oz) 10/04/2023 10:03 AM CDT Height 170.2 cm (5' 7 ) 10/04/2023 10:03 AM CDT Body Mass Index 31.04 10/04/2023 10:03 AM CDT Plan of Treatment Health Maintenance Due Date Last Done Comments Cervical Cancer Screening Pa p Smear (Age 30 to 64) Every 3 Years 1988 DTaP, Tdap and Td Vaccines ( 1 - Tdap) 02/25/2007 Hepatitis B Vaccines (1 of 3 - 19+ 3-dose series) 02/25/2007 Cervical Cancer Screening Pa p with HPV Testing (Age 30 to 64) Every 5 Years 02/25/2018 COVID-19 Vaccine ( - 2023-2 5 season) 2024 Influenza Adult (#1) 2024 Annual Physical 10/03/2024 10/04/2023 Cervical Cancer Screening with HPV 10/03/2024 Postponed from 02/25/2018 (Going to Outside Clinic) Hepatitis C Completed 04/10/2021 HPV Vaccines Aged Out No longer eligi ble based on patient's age to complete this topic Meningococcal Vaccine Aged Out No key david eligible based on patient's age to complete this topic Pneumococcal Vaccine: Pediat rics (0 to 5 Years) and At-Risk Patients (6 to 64 Years) Aged Out No longer eligi ble based on patient's age to complete this topic RSV Immunizations Under 20 Months Aged Out No longer eligible based on patient's age to complete this topic Procedures Procedure Name Priority Date/Time Associated Diagnosis Comments OUTSIDE LAB (SCAN ORDER) 04/03/2024 OUTSIDE LAB (SCAN ORDER) 04/03/2024 OUTSIDE LAB (SCAN ORDER) 04/03/2024 OUTSIDE LAB (SCAN ORDER) 04/03/2024 OUTSIDE LAB (SCAN ORDER) 04/03/2024 HEPATITIS C ANTIBODY Routine 04/10/2021 8:01 AM CDT Adult BMI 30.0-30.9 kg/sq m Need for hepatitis C screening test Encounter for vitamin deficiency screening Encounter for lipid screening for cardiovascular disease from Last 3 Months or Most Recently Relevant to Health Maintenance Results * OUTSIDE LAB (SCAN ORDER) (04/03/2024) Only the most recent of5 resultswithin the time period is included. 04/03/2024 us [facility] Scanned SCANNING Final Resu lt * HEPATITIS C ANTIBODY (04/10/2021 8:01 AM CDT) HEPATITIS C AB NON-REACTI VE NON-REACT [place] 04/10/2021 6:49 PM CDT [facility] Comment: ANTIBODIES TO HCV NOT DETECTED. DOES NOT EXCLUDE THE POSSIBILITY OF EXPOSURE TO HCV. 04/10/2021 8:01 AM CDT [facility] Final Result [facility] [address] [place] [address], [place] [phone] [id number] from Last 3 Months or Most Recently Relevant to Health Maintenance Insurance [employer] Care Teams Cafeteria Supervisor Relationship Specialty Start Date End Date Carlyn Mcpherson FNP [address] [place] [address] [phone] PCP - General Nurse Practitioner Family 04/03/21
--- OUTSIDE RECORDS SUMMARY | 2024-06-28 07:37 | XMS_ITS | Encounter Summary ---
Author Organization [facility] Address [address] [place] [address]. [place], [place] [id number] [place] [address] Care Team Providers Care Slate Handler Name Role Phone Carlyn Mcpherson Primary Care Provider [phone] Encounter Details Date Type Department Care Team (Late st Contact Info) Description 10/24/2023 MyChart Message Enc [facility] Family & Internal Medicine [address] [phone] Carlyn Mcpherson FNP [address] [place] [address] Hcg lab Social History Tobacco Use Types Packs/Day Years Used Date Smoking Tobacco: Never Smokeless Tobacco: Never Alcohol Use Standard Drinks/Week Comments Yes 0 [...] on file documented as of this encounter Visit Diagnoses Not on filedocumented in this encounter Additional Health Concerns Assessment Noted Time PHQ-9 Depression Total Score: 1 07/31/19 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
--- OUTSIDE RECORDS SUMMARY | 2024-06-28 07:37 | XMS_ITS | Encounter Summary ---
Author Organization [facility] Address [address] [place] [address]. [place], [place] [id number] [place] [address] Care Team Providers Care Color Grinder Name Role Phone Carlyn Mcpherson Primary Care Provider [phone] Encounter Details Date Type Department Care Team (Latest Contact Info) Description 10/23/2023 - 10/23/2023 11:59 PM CDT Hospital Encounter [facility] [address] [place] [address] Carlyn Mcpherson FNP [address] [place] [address] Discharge Disposition: Home or Self Care (Routine Discharge) Social History Tobacco Use Types Packs/Day Years [...] on file documented as of this encounter Medications at Time of Discharge Joamkwzn-Qih-Lz-F A (PRE-MYLA FORMULA) Tab Take 1 tablet by mouth daily. 03/17/2023 Thiamine HCl (VITAMIN B-1) 250 MG Tab Vitamin D3 (VITAMIN D) 50 mcg tablet documented as of this encounter Plan of Treatment Not on file documented as of this encounter Visit Diagnoses Not on filedocumented in this encounter Additional Health Concerns Assessment Noted Time PHQ-9 Depression Total Score: 1 07/31/19 23 4:07 PM CAREER TECHNICAL EDUCATION TEACHER documented as of this encounter Care Teams Color Grinder Relationship Specialty Start Date End Date Carlyn Mcpherson FNP [address] [place], [place] [phone] PCP - General Nurse Practitioner Family 04/03/21 documented as of this encounter
--- OUTSIDE RECORDS SUMMARY | 2024-06-28 07:37 | XMS_ITS | Encounter Summary ---
Author Organization [facility] Address [address] [place] [address]. 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
--- OUTSIDE RECORDS SUMMARY | 2024-06-28 07:37 | XMS_ITS | Encounter Summary ---
Author Organization [facility] Address [address] [place] [address]. [place], [place] [phone] [place] [address] Care Team Providers Care Set Up And Charger Name Role Phone Carlyn Mcpherson Primary Care Provider [phone] Reason for Visit * Reason Comments Lab (SCAN) Encounter Details Date Type Department Care Team (Latest Contact Info) Description 04/03/2024 Scan [facility] Scanned, Doc Med Group Lab (SCAN) Social History Tobacco Use Types Packs/Day Years [...] ORDER) 04/03/2024 OUTSIDE LAB (SCAN ORDER) 04/03/2024 documented in this encounter Results * OUTSIDE LAB (SCAN ORDER) (04/03/2024) 04/03/2024 us Doc [facility] Scanned SCANNING Final Resu lt * OUTSIDE LAB (SCAN ORDER) (04/03/2024) 04/03/2024 us Doc [facility] Scanned SCANNING Final Resu lt * OUTSIDE LAB (SCAN ORDER) (04/03/2024) 04/03/2024 us Doc [facility] Scanned SCANNING Final Resu lt * OUTSIDE LAB (SCAN ORDER) (04/03/2024) 04/03/2024 us Doc [facility] Scanned SCANNING Final Resu lt * OUTSIDE LAB (SCAN ORDER) (04/03/2024) 04/03/2024 [employer] [facility] Scanned SCANNING Final Resu lt documented in this encounter Visit Diagnoses Not on filedocumented in this encounter Additional Health Concerns Assessment Noted Time PHQ-9 Depression Total Score: 1 07/31/19 23 4:07 PM USER ACCEPTANCE TESTER documented as of this encounter Care Teams Set Up And Charger Relationship Specialty Start Date End Date Carlyn Mcpherson FNP [address] [place] [address] PCP - General Nurse Practitioner Family 04/03/21 documented as of this encounter
--- OUTSIDE RECORDS SUMMARY | 2024-06-28 07:37 | XMS_ITS | Encounter Summary ---
Author Organization [facility] Address [address] [place] [address]. [place], [place] [address] [place] [address] Care Team Providers Care Fur Liner Name Role Phone Carlyn Mcpherson Primary Care Provider [phone] Encounter Details Date Type Department Care Team (Late st Contact Info) Description 10/23/2023 8:20 AM CDT Laboratory Only [facility] Medical Group Family & Internal Medicine [address] [phone] Carlyn Mcpherson FNP [address] [place] [address] Social History Tobacco Use Types Packs/Day Years [...] on file documented as of this encounter Progress Notes * JOSE Neely - 10/23/2023 8:20 AM CDT Your labs show that your LDL levels improved but still little bit elevated to be concerning. Your hCG is elevated to 2,977 positive Your vitamin D is lower than we would like it and you should increase your vitamin D supplement daily Your labs look good Do you have a follow-up with your press operator automatic? Please call the office if you have any questions or concerns documented in this encounter Plan of Treatment Scheduled Orders Name Type Priority Associated Diagnoses Orde r Schedule URINALYSIS WI REFLEX TO CULTURE Lab Routine Class 1 obesity due to excess calories without serious comorbidity with body mass index (BMI) of 31.0 to 31.9 in adult Expected: 10/23/2023, Expires: 10/22/2024 documented as of this encounter Procedures Procedure Name Priority Date/Time Associated Diagnosis Comments COLLECTION VENOUS BLOOD VENIPUNCTURE Routine 10/23/2023 8:23 AM CDT History of recurrent miscarriages, not currently Class 1 obesity due to excess calories without serious comorbidity with body mass index (BMI) of 31.0 to 31.9 in adult Vitamin B 12 deficiency Vitamin D deficiency Encounter for lipid screening for cardiovascular disease TSH W/REFLEX Routine 10/23/2023 8:10 AM CDT Class 1 obesity due to excess calories without serious comorbidity with body mass index (BMI) of 31.0 to 31.9 in adult VITAMIN B-12 Routine 10/23/2023 8:10 AM CDT Class 1 obesity due to excess calories without serious comorbidity with body mass index (BMI) of 31.0 to 31.9 in adult Vitamin B 12 deficiency COMPREHENSIVE METABOLIC PANEL Routine 10/23/2023 8:10 AM CDT Class 1 obesity due to excess calories without serious comorbidity with body mass index (BMI) of 31.0 to 31.9 in adult LIPID PANEL Routine 10/23/2023 8:10 AM CDT Class 1 obesity due to excess calories without serious comorbidity with body mass index (BMI) of 31.0 to 31.9 in adult Encounter for lipid screening for cardiovascular disease HCG QUANT (SERUM)-CHORIONIC GONADOTROPIN Routine 10/23/2023 8:10 AM CDT History of recurrent miscarriages, not currently FOLIC ACID SERUM Routine 10/23/2023 8:10 AM CDT Class 1 obesity due to excess calories without serious comorbidity with body mass index (BMI) of 31.0 to 31.9 in adult Vitamin B 12 deficiency CBC W/DIFF AUTOMATED Routine 10/23/2023 8:10 AM CDT Class 1 obesity due to excess calories without serious comorbidity with body mass index (BMI) of 31.0 to 31.9 in adult VITAMIN D, 25 OH Routine 10/23/2023 8:10 AM CDT Vitamin D deficiency MAGNESIUM Routine 10/23/2023 8:10 AM CDT Class 1 obesity due to excess calories without serious comorbidity with body mass index (BMI) of 31.0 to 31.9 in adult URIC ACID BLOOD Routine 10/23/2023 8:10 AM CDT Class 1 obesity due to excess calories without serious comorbidity with body mass index (BMI) of 31.0 to 31.9 in adult documented in this encounter Results * (ABNORMAL) CBC W/DIFF AUTOMATED (10/23/2023 8:10 AM CDT) [facility] WBC 4.96 4.00 - 10.80 x10'3/uL 10/23/2023 3:05 PM CDT [facility] RBC 4.26 4.10 - 5.40 x10'6/uL 10/23/2023 3:05 PM CDT [facility] HGB 13.6 12.0 - 16.0 G/DL 10/23/2023 3:05 PM CDT [facility] HCT 39.1 36.0 - 47.0 % 10/23/2023 3:05 PM CDT [facility] MCV 91.8 78.0 - 100.0 FL 10/23/2023 3:05 PM CDT [facility] MCH 31.9(H) 27.0 - 31.0 PG 10/23/2023 3:05 PM CDT [facility] MCHC 34.8 33.0 - 36.0 G/DL 10/23/2023 3:05 PM CDT [facility] RDW 12.0 11.5 - 14.5 % 10/23/2023 3:05 PM CDT [facility] PLT 244 150 - 350 x10'3/uL 10/23/2023 3:05 PM CDT [facility] MPV 10.7(H) 7.4 - 10.4 FL 10/23/2023 3:05 PM CDT [facility] DIFFERENTIAL TYPE AUTOMATED DIFFERENTIAL 10/23/2023 3:05 PM CDT [facility] NEUTROPHILS % 60.3 % 10/23/2023 3:05 PM CDT [facility] LYMPHOCYTES % 31.7 % 10/23/2023 3:05 PM CDT [facility] MONOCYTES % 5.4 % 10/23/2023 3:05 PM CDT [facility] EOSINOPHILS % 1.8 % 10/23/2023 3:05 PM CDT [facility] BASOPHILS % 0.6 % 10/23/2023 3:05 PM CDT [facility] IMMATURE GRANS % 0.2 % 10/23/2023 3:05 PM CDT [facility] ABS. NEUTROPHILS 2.99 1.60 - 8.30 x10'3/uL 10/23/2023 3:05 PM CDT [facility] ABS. LYMPHOCYTES 1.57 0.80 - 4.70 x10'3/uL 10/23/2023 3:05 PM CDT [facility] ABS. MONOCYTES 0.27 0.00 - 1.50 x10'3/uL 10/23/2023 3:05 PM CDT [facility] ABS. EOSINOPHILS 0.09 0.00 - 0.40 x10'3/uL 10/23/2023 3:05 PM CDT [facility] ABS. BASOPHILS 0.03 0.00 - 0.20 x10'3/uL 10/23/2023 3:05 PM CDT [facility] ABS. IMMATURE GRANULOCYTES 0.01 0.00 - 0.03 x10'3/uL 10/23/2023 3:05 PM CDT [facility] 10/23/2023 8:10 AM CDT Carlyn Ky [facility] Final Result [facility] [address] [place] [place] [phone], * (ABNORMAL) LIPID PANEL (10/23/2023 8:10 AM CDT) CHOLESTEROL 197 <200 MG/DL 10/23/2023 3:18 PM CDT [facility] TRIGLYCERIDES 44 <150 MG/DL 10/23/2023 3:18 PM CDT [facility] HDL 75 >40 MG/DL 10/23/2023 3:18 PM CDT [facility] LDL-C 113(H) <100 MG/DL 10/23/2023 3:18 PM CDT [facility] VLDL CALCULATION 9 5 - 28 MG/DL 10/23/2023 3:18 PM CDT [facility] CHOL/HDL RATIO 2.6 0.0 - 4.0 10/23/2023 3:18 PM CDT [facility] LDL/HDL 1.5 0.41 - 2.13 10/23/2023 3:18 PM CDT [facility] NON HDL CHOLESTEROL 122 <140 MG/DL 10/23/2023 3:18 PM CDT [facility] 10/23/2023 8:10 AM CDT Carlyn [place] [facility] Final Result [place] [address] [place] [phone], * TSH W/REFLEX (10/23/2023 8:10 AM CDT) TSH 0.553 0.358 - 3.740 uIU/ML 10/23/2023 3:18 PM CDT [facility] 10/23/2023 8:10 AM CDT Carlyn Mcpherson [facility] Final Result Performing Organization Address [facility] Co de Phone Number [facility] [address] [place] [address], * VITAMIN D, 25 OH (10/23/2023 8:10 AM CDT) [facility] VITAMIN D 25 HYDROXY TOTAL S/P/B 32.7 30 - 100 NG/ML 10/23/2023 3:18 PM CDT [facility] Comment: ? DEFICIENT ??<20 ?INSUFFICIENT 20-30 ?SUFFICIENT 30-100 10/23/2023 8:10 AM CDT Carlyn Felderbabak [facility] Final Result Performing Organization Address City/[facility] Co de Phone Number [facility] [address] [place] [address], * URIC ACID BLOOD (10/23/2023 8:10 AM CDT) Pathologist [facility] URIC ACID 3.9 2.6 - 6.0 MG/DL 10/23/2023 2:44 PM CDT [facility] 10/23/2023 8:10 AM CDT us Carlyn Mcpherson [facility] Final Result [facility] KARYNA [place] [address] [place] [address], * (ABNORMAL) COMPREHENSIVE METABOLIC PANEL (10/23/2023 8:10 AM CDT) SODIUM S/P/B 136 136 - 145 MMOL/L 10/23/2023 3:18 PM CDT [facility] POTASSIUM S/P/B 4.3 3.5 - 5.1 MMOL/L 10/23/2023 3:18 PM CDT [facility] CHLORIDE S/P/B 102 98 - 107 MMOL/L 10/23/2023 3:18 PM CDT [facility] CO2 24.7 21 - 32 MMOL/L 10/23/2023 3:18 PM CDT -[facility] GLUCOSE 89 70 - 99 MG/DL 10/23/2023 3:18 PM CDT -[facility] BUN 11 7 - 18 MG/DL 10/23/2023 3:18 PM CDT [facility] CREATININE S/P/B 0.81 0.55 - 1.02 MG/DL 10/23/2023 3:18 PM CDT -[facility] CALCIUM S/P/B 8.9 8.4 - 10.5 MG/DL 10/23/2023 3:18 PM CDT -[facility] BILIRUBIN TOTAL S/P/B 0.7 0.2 - 1.0 MG/DL 10/23/2023 3:18 PM CDT [facility] ALKALINE PHOSPHATASE S/P/B 48 37 - 98 U/L 10/23/2023 3:18 PM CDT [facility] AST 9(L) 15 - 37 U/L 10/23/2023 3:18 PM CDT [facility] ALT 18 14 - 59 U/L 10/23/2023 3:18 PM CDT [facility] TOTAL PROTEIN S/P/B 7.0 6.4 - 8.2 G/DL 10/23/2023 3:18 PM CDT [facility] ALBUMIN S/P/B 4.1 3.4 - 5.0 G/DL 10/23/2023 3:18 PM CDT [facility] ANION GAP 9.3 5 - 15 MMOL/L 10/23/2023 3:18 PM CDT [facility] Comment:REFERENCE RANGE NOT ESTABLISHED OSMOLALITY (CALC) 281 MOSM/KG 024 3:18 PM CDT [facility] Comment:REFERENCE RANGE NOT ESTABLISHED GFR ESTIMATE >90 >90 ML/MIN/1. 73 M2 10/23/2023 3:18 PM CDT [facility] GFR NOTES GFR REFERENCE S: 10/23/2023 3:18 PM CDT [facility] Comment: THE ESTIMATED GFR IS CALCULATED USING THE 2020 CKD-EPI EQUATION. THE FOLLOWING CATEGORIES FOR GRADING RENAL FUNCTION ARE RECOMMENDED BY THE INTERNATIONAL SOCIETY OF NEPHROLOGY (KDIGO 2012 CLINICAL PRACTICE GUIDELINE). G1,NORMAL OR HIGH: >89 ml/min/1.73 m2 G2,MILDLY DECREASED: 60-89 ml/min/1.73 m2 G3A,MILDLY TO MODERATELY DECREASED: 45-59 ml/min/1.73 m2 G3B,MODERATELY TO SEVERELY DECREASED: 30-44 ml/min/1.73 m2 G4,SEVERELY DECREASED: 15-29 ml/min/1.73 m2 G5,KIDNEY FAILURE: <15 ml/min/1.73 m2 10/23/2023 8:10 AM CDT us Carlyn [facility] Final Result [facility] [address] [facility] [place] [address], * VITAMIN B-12 (10/23/2023 8:10 AM CDT) VITAMIN B12 S/P/B 504 193 - 986 PG/ML 10/23/2023 3:18 PM CDT [facility] 10/23/2023 8:10 AM CDT Carlyn Felderbabak [facility] Final Result Performing Organization Address City/[facility]/ZIP Co de Phone Number [address] [address], [place] [phone] * FOLIC ACID SERUM (10/23/2023 8:10 AM CDT) Pathologist [facility] FOLATE >20.0 8.6 - 58.9 NG/ML 10/23/2023 3:16 PM CDT [facility] 10/23/2023 8:10 AM CDT Carlyn Felderbabak [facility] Final Result Performing Organization Address City/[facility]/ZIP Co de Phone Number [address] [address], [place] [phone] * MAGNESIUM (10/23/2023 8:10 AM CDT) Pathologist [facility] MAGNESIUM 2.0 1.8 - 2.4 MG/DL 10/23/2023 3:18 PM CDT [facility] 10/23/2023 8:10 AM CDT [facility] Final Result Performing Organization Address City/[facility]/ZIP Co de Phone Number [address] [address], [place] [phone] * HCG QUANT (SERUM)-CHORIONIC GONADOTROPIN (10/23/2023 8:10 AM CDT) HCG QUANTITATIVE 2,977 MIU/ML 10/23/19 24 7:16 PM CDT [facility] Comment: <5 IS NEGATIVE 5-25 IS BORDERLINE >25 IS POSITIVE ASSAY PERFORMED BY CHEMILUMINESCENCE METHODOLOGY USING [employer] [place] REAGENT. PATIENT RESULTS DETERMINED BY ASSAYS USING DIFFERENT MANUFACTURERS FOR METHODS MAY NOT BE COMPARABLE. 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 Class 1 obesity due to excess calories without serious comorbidity with body mass index (BMI) of 31.0 to 31.9 in adult Vitamin B 12 deficiency Other B-complex deficiencies Vitamin D deficiency Unspecified vitamin D deficiency Encounter for lipid screening for cardiovascular disease documented in this encounter Additional Health Concerns Assessment Noted Time PHQ-9 Depression Total Score: 1 07/31/19 23 4:07 PM MANUFACTURERS SERVICE REPRESENTATIVE documented as of this encounter Care Teams Fur Liner Relationship Specialty Start Date End Date Carlyn Mcpherson FNP [address] [place] [phone] PCP - General Nurse Practitioner Family 04/03/21 documented as of this encounter
--- OUTSIDE RECORDS SUMMARY | 2024-06-28 07:37 | XMS_ITS | Encounter Summary ---
Author Organization [facility] Address [address] [place] [address]. [place], [place] [id number] [place] [address] Care Team Providers Care Packing Machine Feeder Name Role Phone Carlyn Mcpherson Primary Care Provider [phone] Encounter Details Date Type Department Care Team (Late st Contact Info) Description 10/22/2023 MyChart Message Enc [facility] Medical Group Family & Internal Medicine [address] [phone] Carlyn Mcpherson FNP [address] [place] [phone] Lab draw Social History Tobacco Use Types Packs/Day Years [...] encounter Progress Notes * JOSE Neely - 10/22/2023 12:20 PM CDT Okay to order HCG levels to add to her labs * Madhavi Robertson MA - 10/22/2023 10:36 AM CDT Please advise documented in this encounter Plan of Treatment Not on file documented as of this encounter Results * HCG QUANT (SERUM)-CHORIONIC GONADOTROPIN (10/23/2023 8:10 AM CDT) HCG QUANTITATIVE 2,977 MIU/ML 10/23/19 24 7:16 PM CDT [facility] Comment: <5 IS NEGATIVE 5-25 IS BORDERLINE >25 IS POSITIVE ASSAY PERFORMED BY CHEMILUMINESCENCE METHODOLOGY USING [employer] [place] REAGENT. PATIENT RESULTS DETERMINED BY ASSAYS USING DIFFERENT MANUFACTURERS FOR METHODS MAY NOT BE COMPARABLE. 10/23/2023 8:10 AM CDT us Carlyn [facility] Final Result [facility] [address] [place] [address], [id number] documented in this encounter Visit Diagnoses Diagnosis History of recurrent miscarriages, not currently - Primary Recurrent loss without current documented in this encounter Additional Health Concerns Assessment Noted Time PHQ-9 Depression Total Score: 1 07/31/19 23 4:07 PM INVESTMENT TRADER documented as of this encounter Care Teams Packing Machine Feeder Relationship Specialty Start Date End Date Carlyn Mcpherson FNP [address] [place] [address] PCP - General Nurse Practitioner Family 04/03/21 documented as of this encounter
--- OUTSIDE RECORDS SUMMARY | 2024-06-28 07:37 | XMS_ITS | Encounter Summary ---
Author Organization [facility] Address [address] [place] [address]. [place], [place] [id number] [place] [address] Care Team Providers Care Senior Online Marketing Manager Name Role Phone Carlyn Mcpherson Primary Care Provider [phone] Reason for Visit * Reason Comments Lab (SCAN) Encounter Details Date Type Department Care Team (Latest Contact Info) Description 11/04/2023 Scan [facility] Scanned, Doc [...] Associated Diagnosis Comments OUTSIDE LAB (SCAN ORDER) 11/04/2023 OUTSIDE LAB (SCAN ORDER) 11/04/2023 OUTSIDE LAB (SCAN ORDER) 11/04/2023 OUTSIDE LAB (SCAN ORDER) 11/04/2023 OUTSIDE LAB (SCAN ORDER) 11/04/2023 OUTSIDE LAB (SCAN ORDER) 11/04/2023 OUTSIDE LAB (SCAN ORDER) 11/04/2023 documented in this encounter Results * OUTSIDE LAB (SCAN ORDER) (11/04/2023) 11/04/2023 us Doc [facility] Scanned SCANNING Final Resu lt * OUTSIDE LAB (SCAN ORDER) (11/04/2023) 11/04/2023 us Doc [facility] Scanned SCANNING Final Resu lt * OUTSIDE LAB (SCAN ORDER) (11/04/2023) 11/04/2023 us Doc [facility] Scanned SCANNING Final Resu lt * OUTSIDE LAB (SCAN ORDER) (11/04/2023) 11/04/2023 us [facility] Scanned SCANNING Final Resu lt * OUTSIDE LAB (SCAN ORDER) (11/04/2023) 11/04/2023 Result Kyron us [facility] Scanned SCANNING Final Resu lt * OUTSIDE LAB (SCAN ORDER) (11/04/2023) 11/04/2023 Result [facility]ron [facility] Scanned SCANNING Final Resu lt * OUTSIDE LAB (SCAN ORDER) (11/04/2023) 11/04/2023 us Doc [facility] Scanned SCANNING Final Resu lt documented in this encounter Visit Diagnoses Not on filedocumented in this encounter Additional Health Concerns Assessment Noted Time PHQ-9 Depression Total Score: 1 07/31/19 23 4:07 PM DIRECTOR PRODUCT documented as of this encounter Care Teams Senior Online Marketing Manager Relationship Specialty Start Date End Date Carlyn Mcpherson FNP [address] [place] [id number] PCP - General Nurse Practitioner Family 04/03/21 documented as of this encounter
--- OUTSIDE RECORDS SUMMARY | 2024-06-28 07:38 | XMS_ITS | Encounter Summary ---
Author Organization [facility] Address [address] [place] [address]. [place], [place] [address] [place] [id number] Care Team Providers Care Freight Coordinator Name Role Phone Carlyn Mcpherson Primary Care Provider [phone] Reason for Visit * Reason Comments Weight Check f/u medication Encounter Details Date Type Department Care Team (Late st Contact Info) Description 05/05/2021 8:00 AM ENERGY INFRASTRUCTURE ENGINEER Office Visit [facility] [address] [phone] Carlyn Mcpherson FNP [address] [place] [id number] Weight Check (f/u medication) Social History Tobacco Use Types Packs/Day Years Used Date Smoking Tobacco: Never Smokeless Tobacco: Never Alcohol Use Standard Drinks/Week Comments Yes 0 (1 standard drink = 0.6 oz pur e alcohol) 1 x q month PHQ-2 Answer Date Recorded PHQ-2 Score - If the patient scores above 3, please move on to questions 3-9 0 04/03/2021 Comments No Sex and Gender Information Value Date Recorded Sex Assigned at Not on file Legal Sex Female 11:20 AM CDT Gender Identity Not on file Sexual Orientation Not on file COVID-19 Exposure Response Date Recorded In the last month, have you been in contact with someone who was confirmed or suspected to have Coronavirus / COVID-19? No / Unsure 05/05/2021 7:52 AM ENERGY INFRASTRUCTURE ENGINEER documented as of this encounter Last Filed Vital Signs Vital Sign Reading Time Taken Comments Blood Pressure 119/80 05/05/2021 8:04 AM ENERGY INFRASTRUCTURE ENGINEER Pulse 81 05/05/2021 8:04 AM ENERGY INFRASTRUCTURE ENGINEER Temperature 36.9 ??C (98.4 ??F) 05/05/2021 8:04 AM CS T Respiratory Rate 16 05/05/2021 8:04 AM ENERGY INFRASTRUCTURE ENGINEER Oxygen Saturation 99% 05/05/2021 8:04 AM ENERGY INFRASTRUCTURE ENGINEER Inhaled Oxygen Concentration - - Weight 85.3 kg (188 lb) 05/05/2021 8:04 AM ENERGY INFRASTRUCTURE ENGINEER Height 170.2 cm (5' 7 ) 05/05/2021 8:04 AM ENERGY INFRASTRUCTURE ENGINEER Body Mass Index 29.44 05/05/2021 8:04 AM ENERGY INFRASTRUCTURE ENGINEER documented in this encounter Patient Instructions * Patient Instructions* JOSE Neely - 05/05/2021 8:00 AM ENERGY INFRASTRUCTURE ENGINEER Start a b12 supplement daily (in the morning) And a vitamin d 3 of at least 2,000 IUS daily. Take the phentermine as prescribed for the next 2 months and then stay off of it for one month Return in 3 months for a f/u and to restart the medication if needed. GY IN[employer]RASTRUCTURE ENGINEER documented in this encounter Progress Notes * JOSE Neely - 05/05/2021 8:00 AM CSTSummary: weight issue Office Progress Note Reason for Visit: Weight Check (f/u medication) History of Present Illness: Patricia presents to the office for a f/u of her attempt at weight loss She reports that the phentermine is working well. She has lost 8 lbs since her last OV about one month ago. The only side effect she reports is dry mouth but she is wanting to continue this medication. She is also working on her diet. She denies any PÉREZ, dizziness, blurred vision, SOB, or CP at thistime. We went over her recent blood work and we discussed starting a B12 and vitamin D3 supplement daily. ROS: Review of Systems Constitutional: Negative for chills, diaphoresis, fever, malaise/fatigue and weight loss. HENT: Negative for congestion, ear discharge, ear pain, hearing loss, nosebleeds, sinus pain, sore throat and tinnitus. Eyes: Negative for blurred vision, double vision, photophobia, pain, discharge and redness. Respiratory: Negative for cough, hemoptysis, sputum production, shortness of breath, wheezing and stridor. Cardiovascular: Negative for chest pain, palpitations, orthopnea, claudication, leg swelling and PND. Gastrointestinal: Negative for abdominal pain, blood in stool, constipation, diarrhea, heartburn, melena, nausea and vomiting. Genitourinary: Negative for dysuria, flank pain, frequency, hematuria and urgency. Musculoskeletal: Negative for back pain, falls, joint pain, myalgias and neck pain. Skin: Negative for itching and rash. Neurological: Negative for dizziness, tingling, tremors, sensory change, speech change, focal weakness, seizures, loss of consciousness, weakness and headaches. Endo/Heme/Allergies: Negative for environmental allergies and polydipsia. Does not bruise/bleed easily. Psychiatric/Behavioral: Negative for depression, hallucinations, memory loss, substance abuse and suicidal ideas. The patient is not nervous/anxious and does not have insomnia. Medications: Current Outpatient Medications on File Prior to Visit Medication Sig ??? levonorgestrel (MIRENA, 52 MG,) 20 MCG/24HR IUD Mirena 20 mcg/24 hours (7 yrs) 52 mg intrauterine device Take 1 device by intrauterine route. ??? ondansetron 4 MG disintegrating tablet Take 1 tablet (4 mg total) by mouth every 8 (eight) hours as needed for Nausea. No current facility-administered medications on file prior to visit. Allergies: No Known Allergies Medical History: Past Medical History: Diagnosis Date ??? Known health problems: none Surgical History: Past Surgical History: Procedure Laterality Date ??? NONE Social History: Social History Socioeconomic History ??? Marital status: Single Spouse name: Not on file ??? Number of children: Not on file ??? Years of education: Not on file ??? Highest education level: Not on file Occupational History ??? Not on file Tobacco Use ??? Smoking status: Never Smoker ??? Smokeless tobacco: Never Used Vaping Use ??? Vaping Use: Never used Substance and Sexual Activity ??? Alcohol use: Yes Comment: 1 x q month ??? Drug use: Never ??? Sexual activity: Not on file Other Topics Concern ??? Not on file Social History Narrative ??? Not on file Social Determinants of Health Financial Resource Strain: Not on file Food Insecurity: Not on file Transportation Needs: Not on file Physical Activity: Not on file Stress: Not on file Social Connections: Not on file Intimate Partner Violence: Not on file Family History: Family History Problem Relation Name Age of Onset ??? No Known Problems Father ??? Asthma Sister ??? Diabetes Maternal Grandmother ??? Diabetes Maternal Grandfather ??? Diabetes Paternal Grandmother ??? Stroke Paternal Grandmother ??? No Known Problems Paternal Grandfather PE: Physical Exam Vitals and nursing note reviewed. Constitutional: General: She is not in acute distress. Appearance: Normal appearance. She is well-developed, well-groomed and overweight. She is not ill-appearing, toxic-appearing or diaphoretic. HENT: Head: Normocephalic and atraumatic. Right Ear: Hearing and external ear normal. Left Ear: Hearing and external ear normal. Nose: Nose normal. Eyes: General: Lids are normal. Vision grossly intact. Gaze aligned appropriately. Extraocular Movements: Extraocular movements intact. Conjunctiva/sclera: Conjunctivae normal. Neck: Thyroid: No thyroid mass, thyromegaly or thyroid tenderness. Vascular: Normal carotid pulses. No carotid bruit, hepatojugular reflux or JVD. Trachea: Trachea and phonation normal. Cardiovascular: Rate and Rhythm: Normal rate and regular rhythm. Heart sounds: Normal heart sounds. Pulmonary: Effort: Pulmonary effort is normal. No tachypnea, bradypnea, accessory muscle usage, prolonged expiration, respiratory distress or retractions. Breath sounds: Normal breath sounds and air entry. No stridor, decreased air movement or transmitted upper airway sounds. No decreased breath sounds, wheezing, rhonchi or rales. Abdominal: General: Abdomen is flat. Bowel sounds are normal. There is no distension or abdominal bruit. Thereare no signs of injury. Palpations: Abdomen is soft. There is no pulsatile mass. Tenderness: There is no abdominal tenderness. Musculoskeletal: Cervical back: Full passive range of motion without pain, normal range of motion and neck supple. No spinous process tenderness or muscular tenderness. Lymphadenopathy: Cervical: No cervical adenopathy. Skin: General: Skin is warm and dry. Capillary Refill: Capillary refill takes less than 2 seconds. Findings: No rash. Neurological: Mental Status: She is alert and oriented to person, place, and time. Cranial Nerves: No cranial nerve deficit. Sensory: No sensory deficit. Coordination: Coordination normal. Gait: Gait is intact. Gait normal. Psychiatric: Attention and Perception: Attention and perception normal. Mood and Affect: Mood and affect normal. Speech: Speech normal. Behavior: Behavior normal. Behavior is cooperative. Thought Content: Thought content normal. Cognition and Memory: Cognition and memory normal. Judgment: Judgment normal. Filed Vitals: 05/05/21 0804 BP: 119/80 Pulse: 81 Resp: 16 Temp: 98.4 ??F (36.9 ??C) SpO2: 99% Weight: 85.3 kg (188 lb) Height: 5' 7 (1.702 m) Diagnoses/Impression: 1. Adult BMI 30.0-30.9 kg/sq m phentermine 37.5 MG tablet 2. Vitamin B 12 deficiency 3. Vitamin D deficiency Recommendations and Plan: 1. Adult BMI 30.0-30.9 kg/sq m - phentermine 37.5 MG tablet; Take 1 tablet (37.5 mg total) by mouth every morning before breakfastfor 30 days. Dispense: 30 tablet; Refill: 2 - advised to continue medication and call for any issues - maintain a heart healthy diet and daily physical activity. - 3 month f/u advised, sooner if needed 2. Vitamin B 12 deficiency - discussed starting a b12 supplement daily. - routine f/u advised, 3. Vitamin D deficiency - advised to start a vitamin d 3 supplement - routine f/u advised, sooner if needed. Orders Placed This Encounter ??? phentermine 37.5 MG tablet Cannot display discharge medications since this is not an admission. PCP: JOSE DANIELS 05/05/2021 GY INFRASTRUCTURE ENGINEER documented in this encounter Plan of Treatment Not on file documented as of this encounter Visit Diagnoses Diagnosis Adult BMI 30.0-30.9 kg/sq m- Primary Body Mass Index 30.0-30.9, adult Vitamin B 12 deficiency Other B-complex deficiencies Vitamin D deficiency Unspecified vitamin D deficiency documented in this encounter Additional Health Concerns Assessment Noted Time PHQ-9 Depression Total Score: 1 04/03/20 21 9:27 AM CDT documented as of this encounter Care Teams Freight Coordinator Relationship Specialty Start Date End Date Carlyn Mcpherson FNP [address] [place] [id number] PCP - General Nurse Practitioner Family 04/03/21 documented as of this encounter
--- OUTSIDE RECORDS SUMMARY | 2024-06-28 07:38 | XMS_ITS | Encounter Summary ---
Author Organization [facility] Address [address] [place] [address]. [place], [place] [address] [place] [address] Care Team Providers Care Revenue Enforcement Agent Name Role Phone KyCarlyn JOSE Primary Care Provider [phone] Reason for Visit * Reason Comments Physical Lump Patient has a lump i n right flank. Encounter Details Date Type Department Care Team (Late st Contact Info) Description 10/04/2023 10:00 AM CDT Office Visit [facility] Family & Internal Medicine [address] [address] Carlyn Mcpherson FNP [facility] [place][note 2][address] [place] [address] Physical; Lump (Patient has a lump in right flank.) Social History Tobacco Use Types Packs/Day Years [...] on file documented as of this encounter Last Filed [...] Mass Index 31.04 10/04/2023 10:03 AM CDT documented in this encounter Patient Instructions * Patient Instructions* JOSE Neely - 10/04/2023 10:00 AM CDT Continue your current medication as prescribed Get your labs done, when you are fasting and we will call you with your lab results when they come back Maintain a heart healthy diet and daily physical activity. Call for any questions or concerns Follow up at least every 6 months or sooner if needed. documented in this encounter Progress Notes * JOSE Neely - 10/04/2023 10:00 AM CDTSummary: yearly follow up Office Progress Note Reason for Visit: Physical and Lump (Patient has a lump in right flank.) History of Present Illness: Patricia present to the office for a routine, yearly follow up She reports that she had a miscarriage at 11 weeks along in May and ended up having a D&C at that time. She made this appointment to discuss weight loss and getting back on medication to help with this but she is currently going to try to get again. She is taking a vitamin daily. She is overdue for some routine blood work we will get this done when she is fasting. 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 She has not had the Gardasil vaccines and we discussed talking to her theoretical physicist to see if she could still get this vaccine series to prevent the high risk HPV strains. She denies any new bowel or bladder issues She has been noted to have a vitamin D and B12 deficiency in the past and we will recheck her levels with her routine blood work. ROS: Review of Systems Constitutional: Negative for [...] on File Prior to Visit Medication Sig Sophytaa-Ihf-Dj-FA (PRE-MYLA FORMULA) Tab Take 1 tablet by mouth daily. Thiamine HCl (VITAMIN B-1) 250 MG Tab Vitamin D3 (VITAMIN D) 50 mcg tablet No current facility-administered medications on file prior to visit. Allergies: Review of patient's allergies indicates: No Known Allergies Medical History: Past Medical History: Diagnosis Date Known health problems: none Surgical History: Past Surgical History: Procedure Laterality Date DILATION AND CURETTAGE 05/23/2023 d/t spontanous NONE Social History: Social History Socioeconomic History Marital status: Tobacco Use Smoking status: Never Smokeless tobacco: Never Vaping Use Vaping status: Never Used Substance and Sexual Activity Alcohol use: Yes Comment: Socially- less than 1 time monthly Drug use: Never Sexual activity: Yes Partners: Male control/protection: None Family History: Family History Problem Relation Name Age of Onset No Known Problems Father Asthma Sister Lucía Diabetes Maternal Grandmother Suellen Cancer Maternal Grandmother Suellen Colon cancer Diabetes Maternal Grandfather Stefan Diabetes Paternal Grandmother Judie Stroke Paternal Grandmother Judie Hypertension Paternal Grandmother Judie No Known Problems Paternal Grandfather PE: Physical Exam Vitals and nursing note reviewed. Constitutional: General: She is not in acute distress. Appearance: Normal appearance. She is well-developed and well-groomed. She is not ill-appearing, toxic-appearing or diaphoretic. HENT: Head: Normocephalic and atraumatic. Jaw: There is normal jaw occlusion. Right Ear: Hearing and external ear normal. Left Ear: Hearing and external ear normal. Nose: Nose normal. Mouth/Throat: Mouth: Mucous membranes are moist. Eyes: General: Lids are normal. Vision grossly [...] signs of injury. Palpations: Abdomen is soft. Tenderness: There is no abdominal tenderness. Musculoskeletal: Cervical back: Full passive range of motion without pain, normal range of motion and neck supple. No edema, erythema, signs of trauma, rigidity, torticollis or crepitus. No pain with movement, spinous process tenderness or muscular tenderness. Normal range of motion. Lymphadenopathy: Cervical: No cervical adenopathy. Skin: General: Skin is warm and dry. Capillary Refill: Capillary refill takes less than 2 seconds. Findings: No rash. Neurological: Mental Status: She is alert and oriented to person, place, and time. Cranial Nerves: No cranial nerve deficit. Sensory: Sensation is intact. No sensory deficit. Motor: Motor function is intact. Coordination: Coordination is intact. Coordination normal. Gait: Gait is intact. Gait normal. Psychiatric: Attention and Perception: Attention and perception normal. Mood and Affect: Mood and affect normal. Speech: Speech normal. Behavior: Behavior normal. Behavior is cooperative. Thought Content: Thought content normal. Cognition and Memory: Cognition and memory normal. Judgment: Judgment normal. Filed Vitals: 10/04/23 1003 BP: 94/70 Pulse: 67 Resp: 18 Temp: 98.2 ??F (36.8 ??C) TempSrc: Skin SpO2: 99% Weight: 89.9 kg (198 lb 3.2 oz) Height: 1.702 m (5' 7 ) Diagnoses/Impression: 1. Encounter for health maintenance examination in adult 2. Class 1 obesity due to excess calories without serious comorbidity with body mass index (BMI) of31.0 to 31.9 in adult CBC W/DIFF AUTOMATED LIPID PANEL TSH W/REFLEX URINALYSIS WI REFLEX TO CULTURE URIC ACID BLOOD COMPREHENSIVE METABOLIC PANEL VITAMIN B-12 FOLIC ACID SERUM MAGNESIUM 3. Vitamin D deficiency VITAMIN D, 25 OH 4. Vitamin B 12 deficiency VITAMIN B-12 FOLIC ACID SERUM 5. Encounter for lipid screening for cardiovascular disease LIPID PANEL Recommendations and Plan: 1. Encounter for health maintenance examination in adult 2. Class 1 obesity due to excess calories without serious comorbidity with body mass index (BMI) of31.0 to 31.9 in adult - CBC W/DIFF AUTOMATED; Future - LIPID PANEL; Future - TSH W/REFLEX; Future - URINALYSIS WI REFLEX TO CULTURE; Future - URIC ACID BLOOD; Future - COMPREHENSIVE METABOLIC PANEL; Future - VITAMIN B-12; Future - FOLIC ACID SERUM; Future - MAGNESIUM; Future Advised to maintain a heart healthy diet and get some daily physical activity as tolerated Labs to be obtained as ordered Routine, yearly follow-up advised, sooner if needed 3. Vitamin D deficiency - VITAMIN D, 25 OH; Future We discussed continuing the vitamin and we will advise on if she needs more supplementing after her blood work results come back 4. Vitamin B 12 deficiency - VITAMIN B-12; Future - FOLIC ACID SERUM; Future We discussed continuing the vitamin and we will advise on if she needs more supplementing after her blood work results come back 5. Encounter for lipid screening for cardiovascular disease - LIPID PANEL; Future Screening labs to be obtained as ordered Orders Placed This Encounter CBC W/DIFF AUTOMATED LIPID PANEL TSH W/REFLEX VITAMIN D, 25 OH URINALYSIS WI REFLEX TO CULTURE URIC ACID BLOOD COMPREHENSIVE METABOLIC PANEL VITAMIN B-12 FOLIC ACID SERUM MAGNESIUM Ufjerupy-Drh-Nx-FA (PRE-MYLA FORMULA) Tab Cannot display discharge medications since this is not an admission. I personally spent a total of 40 minutes on the day of the encounter. This includes vpmb-lh-irij and vhx-ayan-ct-face time I provided on the day of the encounter & excludes time spent performing separately reportable services. PCP: JOSE DANIELS 10/04/2023 documented in this encounter Plan of Treatment Not on file documented as of this encounter Results * MAGNESIUM (10/23/2023 8:10 AM CDT) MAGNESIUM 2.0 1.8 - 2.4 MG/DL 10/23/2023 3:18 PM CDT [facility] 10/23/2023 8:10 AM CDT Carlyn Mcpherson [facility] Final Result [facility] [address] [place] [phone], * FOLIC ACID SERUM (10/23/2023 8:10 AM CDT) FOLATE >20.0 8.6 - 58.9 NG/ML 10/23/2023 3:16 PM CDT [facility] 10/23/2023 8:10 AM CDT C[facility]n [facility] Final Result [facility] [address] [place] [address], * VITAMIN B-12 (10/23/2023 8:10 AM CDT) VITAMIN B12 S/P/B 504 193 - 986 PG/ML 10/23/2023 3:18 PM CDT [facility] 10/23/2023 8:10 AM CDT Carlyn Mcpherson [facility] Final Result [facility] [address] [place] [address], * (ABNORMAL) COMPREHENSIVE METABOLIC PANEL (10/23/2023 8:10 AM CDT) SODIUM S/P/B 136 136 - 145 MMOL/L 10/23/2023 3:18 PM CDT [facility] POTASSIUM S/P/B 4.3 3.5 - 5.1 MMOL/L 10/23/2023 3:18 PM CDT [facility] CHLORIDE S/P/B 102 98 - 107 MMOL/L 10/23/2023 3:18 PM CDT [facility] CO2 24.7 21 - 32 MMOL/L 10/23/2023 3:18 PM CDT [facility] GLUCOSE 89 70 - 99 MG/DL 10/23/2023 3:18 PM CDT [facility] BUN 11 7 - 18 MG/DL 10/23/2023 3:18 PM CDT [facility] CREATININE S/P/B 0.81 0.55 - 1.02 MG/DL 10/23/2023 3:18 PM CDT [facility] CALCIUM S/P/B 8.9 8.4 - 10.5 MG/DL 10/23/2023 3:18 PM CDT [facility] BILIRUBIN TOTAL S/P/B 0.7 0.2 - 1.0 MG/DL 10/23/2023 3:18 PM CDT [facility] ALKALINE PHOSPHATASE S/P/B 48 37 - 98 U/L 10/23/2023 3:18 PM CDT [facility] AST 9(L) 15 - 37 U/L 10/23/2023 3:18 PM CDT [facility] ALT 18 14 - 59 U/L 10/23/2023 3:18 PM T [facility] TOTAL PROTEIN S/P/B 7.0 6.4 - 8.2 G/DL 10/23/2023 3:18 PM T [facility] ALBUMIN S/P/B 4.1 3.4 - 5.0 G/DL 10/23/2023 3:18 PM T [facility] ANION GAP 9.3 5 - 15 MMOL/L 10/23/2023 3:18 PM T [facility] Comment:REFERENCE RANGE NOT ESTABLISHED OSMOLALITY (CALC) 281 MOSM/KG 024 3:18 PM T [facility] Comment:REFERENCE RANGE NOT ESTABLISHED GFR ESTIMATE >90 >90 ML/MIN/1. 73 M2 10/23/2023 3:18 PM T [facility] GFR NOTES GFR REFERENCE S: 10/23/2023 3:18 PM T [facility] Comment: THE ESTIMATED GFR IS CALCULATED USING [...] <15 ml/min/1.73 m2 10/23/2023 8:10 AM CDT C[facility]n [facility] Final Result Performing Organization Address [facility] de Phone Number [facility] [address] [place] [address], * URIC ACID BLOOD (10/23/2023 8:10 AM CDT) URIC ACID 3.9 2.6 - 6.0 MG/DL 10/23/2023 2:44 PM CDT [facility] 10/23/2023 8:10 AM CDT Carlyn Ky [facility] Final Result Performing Organization Address [facility] de Phone Number [address] [phone], * VITAMIN D, 25 OH (10/23/2023 8:10 AM CDT) VITAMIN D 25 HYDROXY TOTAL S/P/B 32.7 30 - 100 NG/ML 10/23/2023 3:18 PM CDT [facility] Comment: ? DEFICIENT ??<20 ?INSUFFICIENT 20-30 ?SUFFICIENT 30-100 10/23/2023 8:10 AM CDT Carlyn Felderbabak [facility] Final Result Performing Organization Address [facility] de Phone Number [facility] [address] [place] [address], * TSH W/REFLEX (10/23/2023 8:10 AM CDT) TSH 0.553 0.358 - 3.740 uIU/ML 10/23/2023 3:18 PM CDT [facility] 10/23/2023 8:10 AM CDT us Carlyn Mcpherson [facility] Final Result [facility] [place] [address] [place] [address], [place] [phone] * (ABNORMAL) LIPID PANEL (10/23/2023 8:10 AM CDT) CHOLESTEROL 197 <200 MG/DL 10/23/2023 3:18 PM CDT [facility] TRIGLYCERIDES 44 <150 MG/DL 10/23/2023 3:18 PM CDT [facility] HDL 75 >40 MG/DL 10/23/2023 3:18 PM CDT [facility] LDL-C 113(H) <100 MG/DL 10/23/2023 3:18 PM CDT [facility] VLDL CALCULATION 9 5 - 28 MG/DL 10/23/2023 3:18 PM CDT [facility] CHOL/HDL RATIO 2.6 0.0 - 4.0 10/23/2023 3:18 PM CDT [facility] LDL/HDL 1.5 0.41 - 2.13 10/23/2023 3:18 PM CDT [facility] NON HDL CHOLESTEROL 122 <140 MG/DL 10/23/2023 3:18 PM CDT [facility] 10/23/2023 8:10 AM CDT us Carlyn [facility] Final Result [facility] [place] [address] [place] [address], [place] [phone] * (ABNORMAL) CBC W/DIFF AUTOMATED (10/23/2023 8:10 AM CDT) [facility] WBC 4.96 4.00 - 10.80 x10'3/uL 10/23/2023 3:05 PM CDT [facility] RBC 4.26 4.10 - 5.40 x10'6/uL 10/23/2023 3:05 PM CDT [facility] HGB 13.6 12.0 - 16.0 G/DL 10/23/2023 3:05 PM CDT [facility] HCT 39.1 36.0 - 47.0 % 10/23/2023 3:05 PM CDT [facility] MCV 91.8 78.0 - 100.0 FL 10/23/2023 3:05 PM CDT [facility] MCH 31.9(H) 27.0 - 31.0 PG 10/23/2023 3:05 PM CDT [facility] MCHC 34.8 33.0 - 36.0 G/DL 10/23/2023 3:05 PM CDT [facility] RDW 12.0 11.5 - 14.5 % 10/23/2023 3:05 PM CDT [facility] PLT 244 150 - 350 x10'3/uL 10/23/2023 3:05 PM CDT [facility] MPV 10.7(H) 7.4 - 10.4 FL 10/23/2023 3:05 PM T [facility] DIFFERENTIAL TYPE AUTOMATED DIFFERENTIAL 10/23/2023 3:05 PM CDT [facility] NEUTROPHILS % 60.3 % 10/23/2023 3:05 PM CDT [facility] LYMPHOCYTES % 31.7 % 10/23/2023 3:05 PM CDT [facility] MONOCYTES % 5.4 % 10/23/2023 3:05 PM CDT [facility] EOSINOPHILS % 1.8 % 10/23/2023 3:05 PM CDT [facility] BASOPHILS % 0.6 % 10/23/2023 3:05 PM CDT [facility] IMMATURE GRANS % 0.2 % 10/23/2023 3:05 PM CDT [facility] ABS. NEUTROPHILS 2.99 1.60 - 8.30 x10'3/uL 10/23/2023 3:05 PM CDT [facility] ABS. LYMPHOCYTES 1.57 0.80 - 4.70 x10'3/uL 10/23/2023 3:05 PM CDT [facility] ABS. MONOCYTES 0.27 0.00 - 1.50 x10'3/uL 10/23/2023 3:05 PM CDT [facility] ABS. EOSINOPHILS 0.09 0.00 - 0.40 x10'3/uL 10/23/2023 3:05 PM CDT [facility] ABS. BASOPHILS 0.03 0.00 - 0.20 x10'3/uL 10/23/2023 3:05 PM CDT [facility] ABS. IMMATURE GRANULOCYTES 0.01 0.00 - 0.03 x10'3/uL 10/23/2023 3:05 PM CDT [facility] 10/23/2023 8:10 AM CDT [facility] Final Result [facility] [address] [place] [address], [place] [phone] documented in this encounter Visit Diagnoses Diagnosis Encounter for health maintenance examination in adult- Primary Class 1 obesity due to excess calories without serious comorbidity with body mass index (BMI) of 31.0 to 31.9 in adult Vitamin D deficiency Unspecified vitamin D deficiency Vitamin B 12 deficiency Other B-complex deficiencies Encounter for lipid screening for cardiovascular disease documented in this encounter Additional Health Concerns Assessment Noted Time PHQ-9 Depression Total Score: 1 07/31/19 23 4:07 PM SPECIAL EFFECTS DESIGNER documented as of this encounter Care Teams Revenue Enforcement Agent Relationship Specialty Start Date End Date Carlyn Mcpherson FNP [address] [place] [address] PCP - General Nurse Practitioner Family 04/03/21 documented as of this encounter
--- OUTSIDE RECORDS SUMMARY | 2024-06-28 07:38 | XMS_ITS | Encounter Summary ---
Author Organization [facility] Address [address] [place] [address]. [place], [place] [id number] [place] [address] Care Team Providers Care Machine Adjuster Helper Name Role Phone Carlyn Mcpherson Primary Care Provider [phone] Encounter Details Date Type Department Care Team (Latest Contact Info) Description 04/03/2021 Travel Social History Tobacco Use Types Packs/Day [...] have Coronavirus / COVID-19? No / Unsure 04/03/2021 8:33 AM CDT documented as of this encounter Plan of Treatment Not on file documented as of this encounter Visit Diagnoses Not on filedocumented in this encounter Additional Health Concerns Assessment Noted Time PHQ-9 Depression Total Score: 1 04/03/20 9:27 AM CDT documented as of this encounter Care Teams Machine Adjuster Helper Relationship Specialty Start Date End Date Carlyn Mcpherson FNP [address] [place] [address] PCP - General Nurse Practitioner Family 04/03/21 documented as of this encounter
--- OUTSIDE RECORDS SUMMARY | 2024-06-28 07:38 | XMS_ITS | Encounter Summary ---
Author Organization [facility] Address [address] [place] [address]. [place], [place] [address] [place] [address] Care Team Providers Care Lesson Instructor Name Role Phone Carlyn Mcpherson Primary Care Provider [phone] Reason for Visit * Reason Onset Date Comments Lab Results 08/20/2022 Encounter Details Date Type Department Care Team (Late st Contact Info) Description 08/20/2022 Telephone [facility] Family & Internal Medicine [address] [address] Carlyn Mcpherson FNP [facility] [place] [address] Lab Results Social History Tobacco Use Types Packs/Day Years Used Date Smoking Tobacco: Never Smokeless Tobacco: Never Alcohol Use Standard Drinks/Week Comments Yes 0 (1 standard drink = 0.6 oz pur e alcohol) occasional PHQ-2 Answer Date Recorded Patient Health Questionnaire-2 Score 0 07/31/2022 Comments No Sex and Gender Information Value Date Recorded Sex Assigned at Not on file Legal Sex Female 11:20 AM CDT Gender Identity Not on file Sexual Orientation Not on file COVID-19 Exposure Response Date Recorded In the last 10 days, have yo u been in contact with someone who was confirmed or suspected to have Coronavirus/COVID-19? No / Unsure 07/31/2022 3:30 PM ENERGY OPERATIONS VICE PRESIDENT documented as of this encounter Progress Notes * Elisabeth Wood MA - 08/22/2022 10:06 AM CST Patient informed of results and recommendations. Voiced understanding t n GY OPERATIONS VICE PRESIDENT * Elisabeth Wood MA - 08/20/2022 9:00 AM CST Vitamin D is 39. Continue or increase Vitamin D. Other labs are good. LM 08/20/22 tn GY OPERATIONS VICE PRESIDENT documented in this encounter Plan of Treatment Not on file documented as of this encounter Visit Diagnoses Not on filedocumented in this encounter Additional Health Concerns Assessment Noted Time PHQ-9 Depression Total Score: 1 07/31/19 23 4:07 PM ENERGY OPERATIONS VICE PRESIDENT documented as of this encounter Care Teams Lesson Instructor Relationship Specialty Start Date End Date Carlyn Mcpherson FNP [address] [place] [address] PCP - General Nurse Practitioner Family 04/03/21 documented as of this encounter
--- OUTSIDE RECORDS SUMMARY | 2024-06-28 07:38 | XMS_ITS | Encounter Summary ---
Author Organization [facility] Address [address] [place] [address]. [place] [address] Care Team Providers Care Waiter/Waitress Third Class Name Role Phone Carlyn Mcpherson Primary Care Provider Reason for Visit * Reason Comments Lab (SCAN) Encounter Details Date Type Department Care Team (Latest Contact Info) Description 08/09/2022 Scan HEALTH INFO [facility] Scanned, Doc Med [facility] [...] Coronavirus/COVID-19? No / Unsure 07/31/2022 3:30 PM MICRO LAB ANALYST documented as of this encounter Plan of Treatment Not on file documented as of this encounter Procedures Procedure Name Priority Date/Time Associated Diagnosis Comments OUTSIDE LAB (SCAN ORDER) 08/09/2022 OUTSIDE LAB (SCAN ORDER) 08/09/2022 OUTSIDE LAB (SCAN ORDER) 08/09/2022 OUTSIDE LAB (SCAN ORDER) 08/09/2022 documented in this encounter Results * OUTSIDE LAB (SCAN) (08/09/2022) 08/09/2022 us [facility] Scanned SCANNING Final Resu lt * OUTSIDE LAB (SCAN) (08/09/2022) 08/09/2022 [facility] Scanned SCANNING Final Resu lt * OUTSIDE LAB (SCAN) (08/09/2022) 08/09/2022 [facility] Scanned SCANNING Final Resu lt * OUTSIDE LAB (SCAN) (08/09/2022) 08/09/2022 Result [facility] Scanned SCANNING Final Resu lt documented in this encounter Visit Diagnoses Not on filedocumented in this encounter Additional Health Concerns Assessment Noted Time PHQ-9 Depression Total Score: 1 07/31/19 23 4:07 PM MICRO LAB ANALYST documented as of this encounter Care Teams Waiter/Waitress Third Class Relationship Specialty Start Date End Date Carlyn Mcpherson FNP [address] [place] [address] PCP - General Nurse Practitioner Family 04/03/21 documented as of this encounter
--- OUTSIDE RECORDS SUMMARY | 2024-06-28 07:38 | XMS_ITS | Encounter Summary ---
Author Organization [facility] Address [address] [place] [address]. [place] [address] Care Team Providers Care Research Assistant Professor Name Role Phone Carlyn Mcpherson Primary Care Provider [phone] Reason for Visit * Reason Onset Date Comments Lab Results 04/12/2021 Encounter Details Date Type Department Care Team (Late st Contact Info) Description 04/12/2021 Telephone [facility] Medical [facility] Family & Internal Medicine [address] [phone] Carlyn Mcpherson FNP [address] [place] [phone] Lab Results Social History Tobacco Use Types [...] have Coronavirus / COVID-19? No / Unsure 04/10/2021 7:59 AM CDT documented as of this encounter Progress Notes * Johana Hare - 04/12/2021 10:03 AM CDT Patient called back in, I advised her the following. Patient v/u. * Elisabeth Wood MA - 04/12/2021 9:14 AM CDT LM 04/12/21 tn * Elisabeth Wood MA - 04/12/2021 9:13 AM CDT ----- Message from LENA Mayo sent at 04/11/2021 6:01 PM CDT ----- Lipids sl elevated. Decrease carbs and animal fats in diet. Other labs showed no significant abnormalities documented in this encounter Plan of Treatment Not on file documented as of this encounter Visit Diagnoses Not on filedocumented in this encounter Additional Health Concerns Assessment Noted Time PHQ-9 Depression Total Score: 1 04/03/20 9:27 AM CDT documented as of this encounter Care Teams Research Assistant Professor Relationship Specialty Start Date End Date Carlyn Mcpherson FNP [address] [place] [address] PCP - General Nurse Practitioner Family 04/03/21 documented as of this encounter
--- OUTSIDE RECORDS SUMMARY | 2024-06-28 07:38 | XMS_ITS | Encounter Summary ---
Author Organization [facility] Address [address] [place] [address]. [place], [place] [address] [place] [address] Care Team Providers Care Client Delivery Manager Name Role Phone Carlyn Mcpherson Primary Care Provider [phone] Encounter Details Date Type Department Care Team (Latest Contact Info) Description 08/06/2021 Travel Social History Tobacco Use Types Packs/Day [...] suspected to have Coronavirus/COVID-19? No / Unsure 08/06/2021 11:07 AM INFORMATICA documented as of this encounter Plan of Treatment Not on file documented as of this encounter Visit Diagnoses Not on filedocumented in this encounter Additional Health Concerns Assessment Noted Time PHQ-9 Depression Total Score: 1 04/03/20 9:27 AM CDT documented as of this encounter Care Teams Client Delivery Manager Relationship Specialty Start Date End Date Carlyn Mcpherson FNP [address] [place] [address] PCP - General Nurse Practitioner Family 04/03/21 documented as of this encounter
--- OUTSIDE RECORDS SUMMARY | 2024-06-28 07:38 | XMS_ITS | Encounter Summary ---
Author Organization [facility] Address [address] [place] [address]. [place], [place] [id number] [place] [address] Care Team Providers Care Earth Moving Technician Name Role Phone Carlyn Mcpherson Primary Care Provider [phone] Encounter Details Date Type Department Care Team (Latest Contact Info) Description 04/10/2021 Travel Social History Tobacco Use Types Packs/Day [...] documented as of this encounter Care Teams Earth Moving Technician Relationship Specialty Start Date End Date Carlyn Mcpherson FNP [address] [place] [address] PCP - General Nurse Practitioner Family 04/03/21 documented as of this encounter
--- OUTSIDE RECORDS SUMMARY | 2024-06-28 07:38 | XMS_ITS | Encounter Summary ---
Author Organization [facility] Address [address] [place] [address]. [place] [id number] [place] [address] Care Team Providers Care Mechanical Field Engineer Name Role Phone Carlyn Mcpherson Primary Care Provider [phone] Encounter Details Date Type Department Care Team (Latest Contact Info) Description 10/04/2023 Travel Social History Tobacco Use Types Packs/Day [...] Total Score: 1 07/31/19 23 4:07 PM COLORING ROOM WORKER documented as of this encounter Care Teams Mechanical Field Engineer Relationship Specialty Start Date End Date Carlyn Mcpherson FNP [address] [place] [address] PCP - General Nurse Practitioner Family 04/03/21 documented as of this encounter
--- OUTSIDE RECORDS SUMMARY | 2024-06-28 07:38 | XMS_ITS | Encounter Summary ---
Author Organization [facility] Address [address] [place] [address]. [place], [place] [address] [place] [address] Care Team Providers Care Medical Transcription Name Role Phone Carlyn Mcpherson Primary Care Provider [phone] Reason for Visit * Reason Comments Procedure (SCAN) Encounter Details Date Type Department Care Team ([facility] Contact Info) Description 05/16/2023 Scan HEALTH INFO [facility] Scanned, Doc [facility] Procedure (SCAN) Social History Tobacco Use Types Packs/Day [...] Procedure Name Priority Date/Time Associated Diagnosis Comments PROCEDURE GENERIC (SCAN ORDER) 05/16/2023 documented in this encounter Results * PROCEDURE GENERIC (05/16/2023) 05/16/2023 us Doc Med Group Scanned SCANNING Final Resu lt documented in this encounter Visit Diagnoses Not on filedocumented in this encounter Additional Health Concerns Assessment Noted Time PHQ-9 Depression Total Score: 1 07/31/19 23 4:07 PM PIPE FITTER HELPER documented as of this encounter Care Teams Medical Transcription Relationship Specialty Start Date End Date Carlyn Mcpherson FNP [address] [place] [address] PCP - General Nurse Practitioner Family 04/03/21 documented as of this encounter
--- OUTSIDE RECORDS SUMMARY | 2024-06-28 07:38 | XMS_ITS | Encounter Summary ---
Author Organization [facility] Address [address] [place] [address]. [place], [place] [address] [place] [address] Care Team Providers Care Sugar Laboratory Assistant Name Role Phone Ky Carlyn JOSE Primary Care Provider [phone] Reason for Visit * Reason Comments Weight Problem Follow up on weight and medication Encounter Details Date Type Department Care Team (Late st Contact Info) Description 09/03/2022 3:20 PM CDT Office Visit [facility] Family & Internal Medicine [place] [id number] [place] [address] Carlyn Mcpherson FNP [facility] [place], [place] [id number] Weight Problem (Follow up on weight and medication) Social History Tobacco Use Types Packs/Day [...] suspected to have Coronavirus/COVID-19? No / Unsure 09/03/2022 3:10 PM CDT documented as of this encounter Last Filed Vital Signs Vital Sign Reading Time Taken Comments Blood Pressure 134/81 09/03/2022 3:42 PM CDT Pulse 85 09/03/2022 3:42 PM CDT Temperature 36.3 ??C (97.3 ??F) 09/03/2022 3:42 PM CD T Respiratory Rate 16 09/03/2022 3:42 PM CDT Oxygen Saturation 100% 09/03/2022 3:42 PM CDT Inhaled Oxygen Concentration - - Weight 85.7 kg (189 lb) 09/03/2022 3:42 PM CDT Height 170.2 cm (5' 7 ) 09/03/2022 3:42 PM CDT Body Mass Index 29.6 09/03/2022 3:42 PM CDT documented in this encounter Patient Instructions * Patient Instructions* JOSE Neely - 09/03/2022 3:20 PM CDT Maintain a heart healthy diet and get plenty of daily physical activity Take medications as directed and prescribed Keep track of your daily caloric intake as we discussed Call for any questions or concerns Follow up in 3 months to determine the effectiveness of this medication and to restart this if applicable, as we discussed documented in this encounter Progress Notes * JOSE Neely - 09/03/2022 3:20 PM CDTSummary: weight issues Office Progress Note Reason for Visit: Weight Problem (Follow up on weight and medication) History of Present Illness: Patricia presents to the office for a f/u of her weight issues. Started on phentermine about one month ago and does go to the gym 4-5 days a week. She has lost 8 lbs since her last OV, about one month ago. She does have some jitteriness in the am and dry mouth but this gets better throughout the day. She denies any CP, SOB, PÉREZ, dizziness or blurred vision whiletaking this medication. She would like to be around 160-165lbs. Vitamin d deficiency- Did start taking vitamin d supplement daily, as advised after her routine blood work noted a deficiency ROS: Review of Systems Constitutional: Negative for [...] 8 (eight) hours as needed for Nausea. ??? Thiamine HCl (VITAMIN B-1) 250 MG Tab ??? Vitamin D3 (VITAMIN D) 50 mcg tablet No current facility-administered medications on file prior to visit. Allergies: No Known Allergies Medical History: Past Medical History: Diagnosis Date ??? Known health problems: none Surgical History: Past Surgical History: Procedure Laterality Date ??? NONE Social History: Social History Socioeconomic History ??? Marital status: Tobacco Use ??? Smoking status: Never ??? Smokeless tobacco: Never Vaping Use ??? Vaping Use: Never used Substance and Sexual Activity ??? Alcohol use: Yes Comment: occasional ??? Drug use: Never ??? Sexual activity: Yes Partners: Male control/protection: I.U.D. Family History: Family History Problem Relation Name Age of Onset ??? No Known Problems Father ??? Asthma Sister Lucía ??? Diabetes Maternal Grandmother Judie ??? Diabetes Maternal Grandfather Stefan ??? Diabetes Paternal Grandmother Judie ??? Stroke Paternal Grandmother Judie ??? No Known Problems Paternal Grandfather PE: [...] memory normal. Judgment: Judgment normal. Filed Vitals: 09/03/22 1542 BP: 134/81 Pulse: 85 Resp: 16 Temp: 97.3 ??F (36.3 ??C) SpO2: 100% Weight: 85.7 kg (189 lb) Height: 5' 7 (1.702 m) Diagnoses/Impression: 1. Overweight with body mass index (BMI) 25.0-29.9 phentermine (ADIPEX-P) 37.5 MG tablet 2. Vitamin D deficiency 3. Vitamin B 12 deficiency Recommendations and Plan: 1. Overweight with body mass index (BMI) 25.0-29.9 - phentermine (ADIPEX-P) 37.5 MG tablet; Take 1/2 to 1 tablet daily with breakfast Dispense: 30 tablet; Refill: 1 Advised to continue current medication as prescribed and to call for any issues or concerns We discussed maintaining a heart healthy diet and daily physical activity We discussed taking the medication for the next 2 months and then holding it for 2 to 4 weeks to help minimize tolerance of this medication and then come back and to resume this medicine if needed Advised to follow-up in 3 months or sooner if needed 2. Vitamin D deficiency Advised to continue vitamin D supplement daily We discussed routine follow-up, sooner if needed 3. Vitamin B 12 deficiency Advised to continue vitamin B 12 supplement daily Advised to follow-up routinely, sooner if needed Orders Placed This Encounter ??? phentermine (ADIPEX-P) 37.5 MG tablet Cannot display discharge medications since this is not an admission. I personally spent a total of 30 minutes on the day of the encounter. This includes jwfx-vo-vand and ofu-dwrx-il-face time I provided on the day of the encounter & excludes time spent performing separately reportable services. 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
--- OUTSIDE RECORDS SUMMARY | 2024-06-28 07:38 | XMS_ITS | Encounter Summary ---
Author Organization [facility] Address [address] [place] [address]. [place], [place] [address] [place] [address] Care Team Providers Care Lamination Builder Name Role Phone Carlyn Mcpherson Primary Care Provider [phone] Reason for Visit * Reason Comments Weight Problem C/o increased weight and needing options for weight loss Encounter Details Date Type Department Care Team (Late st Contact Info) Description 07/31/2022 3:40 PM PROGRAM DIRECTOR GROUP WORK Office Visit [facility] Medical Group Family & Internal Medicine [address] [address] Carlyn Mcpherson FNP [facility] [place], [place] [id number] Weight Problem (C/o increased weight and needing options for weight loss) Social History Tobacco Use Types Packs/Day Years [...] Coronavirus/COVID-19? No / Unsure 07/31/2022 3:30 PM PROGRAM DIRECTOR GROUP WORK documented as of this encounter Last Filed Vital Signs Vital Sign Reading Time Taken Comments Blood Pressure 118/80 07/31/2022 3:45 PM PROGRAM DIRECTOR GROUP WORK Pulse 71 07/31/2022 3:45 PM PROGRAM DIRECTOR GROUP WORK Temperature 36.4 ??C (97.6 ??F) 07/31/2022 3:45 PM CS T Respiratory Rate 16 07/31/2022 3:45 PM PROGRAM DIRECTOR GROUP WORK Oxygen Saturation 97% 07/31/2022 3:45 PM PROGRAM DIRECTOR GROUP WORK Inhaled Oxygen Concentration - - Weight 88.5 kg (195 lb) 07/31/2022 3:45 PM PROGRAM DIRECTOR GROUP WORK Height 170.2 cm (5' 7 ) 07/31/2022 3:45 PM PROGRAM DIRECTOR GROUP WORK Body Mass Index 30.54 07/31/2022 3:45 PM PROGRAM DIRECTOR GROUP WORK documented in this encounter Patient Instructions * Patient Instructions* JOSE Neely - 07/31/2022 3:40 PM PROGRAM DIRECTOR GROUP WORK Maintain a heart healthy diet and get plenty of daily physical activity Take medications as directed and prescribed Keep track of your daily caloric intake as we discussed We will call you with your lab results when they come back Call for any questions or concerns Follow up in one month virtual visit to check the effectiveness of the medication. RAM DIRECTOR GROUP WORK documented in this encounter Progress Notes * JOSE Neely - 07/31/2022 3:40 PM CSTSummary: work physical, weight issues, cyst Office Progress Note Reason for Visit: Weight Problem (C/o increased weight and needing options for weight loss) History of Present Illness: Patricia presents to the office for a physical for her work and to discuss weight loss options. bmi 30 Would like help losing weight. She does watch her diet and is unsure why she cannot lose weight. She does go to the gym 4 days a week. She has tried phentermine in the past that caused her some jittery feeling but it did go away after a couple of days. She is willing to try this again. She does have a family history of DM she is due for some routine blood work and will get this done when she is fasting. She has had deficiency in vitamin d and b12 and we will recheck these levels. She is here for a work physical also and did bring a form in with her. Also has a skin lesion/cyst on her right leg that sometimes drains. We discussed needing to see a icu manager for this issue and she is going to call one. She will let us know if she needs a referral ROS: Review of Systems Constitutional: Negative for [...] pain. Skin: Negative for itching and rash. Cyst on right lower leg, lateral aspect Neurological: Negative for dizziness, tingling, tremors, sensory [...] File Prior to Visit Medication Sig ??? Cholecalciferol (VITAMIN D) 50 MCG (1999) Tab ??? levonorgestrel (MIRENA, 52 MG,) 20 MCG/24HR IUD Mirena 20 mcg/24 hours (7 yrs) 52 mg intrauterine device Take 1 device by intrauterine route. ??? ondansetron 4 MG disintegrating tablet Take 1 tablet (4 mg total) by mouth every 8 (eight) hours as needed for Nausea. ??? Thiamine HCl (VITAMIN B-1) 250 MG Tab No current facility-administered medications on file prior [...] There is normal jaw occlusion. Right Ear: Hearing, tympanic membrane, ear canal and external ear normal. Left Ear: Hearing, tympanic membrane, ear canal and external ear normal. Nose: Nose normal. [...] refill takes less than 2 seconds. Findings: Lesion (skin colored papule on right lower leg, lateral aspect. ) present. No rash. Neurological: Mental Status: She is [...] memory normal. Judgment: Judgment normal. Filed Vitals: 07/31/22 1545 BP: 118/80 Pulse: 71 Resp: 16 Temp: 97.6 ??F (36.4 ??C) SpO2: 97% Weight: 88.5 kg (195 lb) Height: 5' 7 (1.702 m) Diagnoses/Impression: 1. Encounter for health maintenance examination in adult CBC W/DIFF AUTOMATED LIPID PANEL TSH W/REFLEX URINALYSIS WI REFLEX TO CULTURE URIC ACID BLOOD COMPREHENSIVE METABOLIC PANEL 2. Class 1 obesity due to excess calories without serious comorbidity with body mass index (BMI) of30.0 to 30.9 in adult CBC W/DIFF AUTOMATED LIPID PANEL TSH W/REFLEX URINALYSIS WI REFLEX TO CULTURE URIC ACID BLOOD COMPREHENSIVE METABOLIC PANEL phentermine-topiramate (QSYMIA) 3.75-23 MG 24 hr capsule 3. Vitamin D deficiency VITAMIN D, 25 OH 4. Vitamin B 12 deficiency VITAMIN B-12 FOLIC ACID SERUM 5. Cyst, dermoid, leg, right Recommendations and Plan: 1. Encounter for health maintenance examination in adult - CBC W/DIFF AUTOMATED; Future - LIPID PANEL; Future - TSH W/REFLEX; Future - URINALYSIS WI REFLEX TO CULTURE; Future - URIC ACID BLOOD; Future - COMPREHENSIVE METABOLIC PANEL; Future - work physical form filled out today. - labs to be obtained as ordered. - routine f/u advised, sooner if needed 2. Class 1 obesity due to excess calories without serious comorbidity with body mass index (BMI) of30.0 to 30.9 in adult - CBC W/DIFF AUTOMATED; Future - LIPID PANEL; Future - TSH W/REFLEX; Future - URINALYSIS WI REFLEX TO CULTURE; Future - URIC ACID BLOOD; Future - COMPREHENSIVE METABOLIC PANEL; Future - phentermine-topiramate (QSYMIA) 3.75-23 MG 24 hr capsule; Take 1 capsule by mouth daily for 14 days, THEN 2 capsules daily for 16 days. Dispense: 30 capsule; Refill: 0 -advised to take medication as prescribed and to call for any issues or concerns - advised to maintain a heart healthy diet and get some daily physical activity. -labs to be obtained as ordered - one month f/u advised, sooner if needed 3. Vitamin D deficiency - VITAMIN D, 25 OH; Future - advised to continue a daily supplement -labs to be obtained as ordered 4. Vitamin B 12 deficiency - VITAMIN B-12; Future - FOLIC ACID SERUM; Future - advised to continue a daily supplement -labs to be obtained as ordered 5. Cyst, dermoid, leg, right - advised to f/u with a icu manager and call back if she needs a referral placed. Orders Placed This Encounter ??? CBC W/DIFF AUTOMATED ??? LIPID PANEL ??? TSH W/REFLEX ??? VITAMIN D, 25 OH ??? URINALYSIS WI REFLEX TO CULTURE ??? URIC ACID BLOOD ??? COMPREHENSIVE METABOLIC PANEL ??? VITAMIN B-12 ??? FOLIC ACID SERUM ??? Cholecalciferol (VITAMIN D) 50 MCG (2000 UT) Tab ??? Thiamine HCl (VITAMIN B-1) 250 MG Tab ??? phentermine-topiramate (QSYMIA) 3.75-23 MG 24 hr capsule Cannot display discharge medications since this is not an admission. I personally spent a total of 40 minutes on the day of the encounter. This includes rztq-vz-yssu and xfh-bihz-nq-face time I provided on the day of the encounter & excludes time spent performing separately reportable services. PCP: JOSE DANIELS 08/07/2022 RAM DIRECTOR GROUP WORK documented in this encounter Plan of Treatment Not on file documented as of this encounter Visit Diagnoses Diagnosis Encounter for health maintenance examination in adult- Primary Class 1 obesity due to excess calories without serious comorbidity with body mass index (BMI) of 30.0 to 30.9 in adult Vitamin D deficiency Unspecified vitamin D deficiency Vitamin B 12 deficiency Other B-complex deficiencies Cyst, dermoid, leg, right documented in this encounter Additional Health Concerns Assessment Noted Time PHQ-9 Depression Total Score: 1 07/31/19 23 4:07 PM PROGRAM DIRECTOR GROUP WORK documented as of this encounter Care Teams Lamination Builder Relationship Specialty Start Date End Date Carlyn Mcpherson FNP [address] [place] [address] PCP - General Nurse Practitioner Family 04/03/21 documented as of this encounter
--- OUTSIDE RECORDS SUMMARY | 2024-06-28 07:38 | XMS_ITS | Encounter Summary ---
Author Organization [facility] Address [address] [place] [address]. [place], [place] [address] [place] [address] Care Team Providers Care Poultryman Name Role Phone Carlyn Mcpherson Primary Care Provider [phone] Encounter Details Date Type Department Care Team (Late st Contact Info) Description 08/09/2022 MyChart Message Enc [facility] Medical Group Family & Internal Medicine [address] [address] Carlyn Mcpherson FNP [address] [place] [address] [phone] Medication Social History Tobacco Use Types Packs/Day Years [...] Coronavirus/COVID-19? No / Unsure 07/31/2022 3:30 PM MARKETING AND DEVELOPMENT COORDINATOR documented as of this encounter Plan of Treatment Not on file documented as of this encounter Visit Diagnoses Not on filedocumented in this encounter Additional Health Concerns Assessment Noted Time PHQ-9 Depression Total Score: 1 07/31/19 4:07 PM MARKETING AND DEVELOPMENT COORDINATOR documented as of this encounter Care Teams Poultryman Relationship Specialty Start Date End Date Carlyn Mcpherson FNP [address] [place] [address] PCP - General Nurse Practitioner Family 04/03/21 documented as of this encounter
--- OUTSIDE RECORDS SUMMARY | 2024-06-28 07:38 | XMS_ITS | Encounter Summary ---
Author Organization [facility] Address [address] [place] [address]. [place], [place] [address] [place] [address] Care Team Providers Care Eclectic Doctor Name Role Phone Carlyn Mcpherson Primary Care Provider [phone] Encounter Details Date Type Department Care Team (Latest Contact Info) Description 05/05/2021 Travel Social History Tobacco Use Types Packs/Day [...] COVID-19? No / Unsure 05/05/2021 7:52 AM MANAGER GLOBAL COMMUNICATIONS documented as of this encounter Plan of Treatment Not on file documented as of this encounter Visit Diagnoses Not on filedocumented in this encounter Additional Health Concerns Assessment Noted Time PHQ-9 Depression Total Score: 1 04/03/20 9:27 AM CDT documented as of this encounter Care Teams Eclectic Doctor Relationship Specialty Start Date End Date Carlyn Mcpherson FNP [address] [place] [address] PCP - General Nurse Practitioner Family 04/03/21 documented as of this encounter
--- OUTSIDE RECORDS SUMMARY | 2024-06-28 07:38 | XMS_ITS | Encounter Summary ---
Author Organization [facility] Address [address] [place] [address]. [place], [place] [id number] [place] [address] Care Team Providers Care Glue Bone Drier Name Role Phone Carlyn Mcpherson Primary Care Provider [phone] Encounter Details Date Type Department Care Team (Latest Contact Info) Description 07/31/2021 Travel Social History Tobacco Use Types Packs/Day [...] suspected to have Coronavirus/COVID-19? No / Unsure 07/31/2021 2:00 PM METAL PUNCH PRESS OPERATOR documented as of this encounter Plan of Treatment Not on file documented as of this encounter Visit Diagnoses Not on filedocumented in this encounter Additional Health Concerns Assessment Noted Time PHQ-9 Depression Total Score: 1 04/03/20 21 9:27 AM CDT documented as of this encounter Care Teams Glue Bone Drier Relationship Specialty Start Date End Date Carlyn Mcpherson FNP [address] [place] [address] PCP - General Nurse Practitioner Family 04/03/21 documented as of this encounter
--- OUTSIDE RECORDS SUMMARY | 2024-06-28 07:38 | XMS_ITS | Encounter Summary ---
Author Organization [facility] Address [address] [place] [address]. [place] [id number] [place] [address] Care Team Providers Care Post Anesthesia Room Nurse Name Role Phone Carlyn Mcpherson Primary Care Provider [phone] Reason for Visit * Reason Comments Medication follow up phentermin e Encounter Details Date Type Department Care Team (Late st Contact Info) Description 08/09/2021 8:40 AM FINANCIAL SERVICES REP Telemedicine [facility] Family & Internal Medicine [address] [phone] Carlyn Mcpherson FNP [address] [place] [address] Medication (follow up phentermine ) Social History Tobacco Use Types Packs/Day Years Used Date Smoking Tobacco: Never Smokeless Tobacco: Never Alcohol Use Standard Drinks/Week Comments Yes 0 (1 standard drink = 0.6 oz pur e alcohol) 1 x q month PHQ-2 Answer Date Recorded PHQ-2 Score - If the patient scores above 3, please move on to questions 3-9 0 08/09/2021 Comments No Sex and Gender Information Value Date Recorded Sex Assigned at Not on file Legal Sex Female 11:20 AM CDT Gender Identity Not on file Sexual Orientation Not on file COVID-19 Exposure Response Date Recorded In the last 10 days, have yo u been in contact with someone who was confirmed or suspected to have Coronavirus/COVID-19? Unable to assess 08/09/2021 6:52 AM FINANCIAL SERVICES REP documented as of this encounter Last Filed Vital Signs Vital Sign Reading Time Taken Comments Blood Pressure - - Pulse - - Temperature - - Respiratory Rate - - Oxygen Saturation - - Inhaled Oxygen Concentration - - Weight 82.6 kg (182 lb) 08/09/2021 8:55 AM FINANCIAL SERVICES REP Height 170.2 cm (5' 7 ) 08/09/2021 8:55 AM FINANCIAL SERVICES REP Body Mass Index 28.51 08/09/2021 8:55 AM FINANCIAL SERVICES REP documented in this encounter Patient Instructions * Patient Instructions* JOSE Neely - 08/09/2021 8:40 AM FINANCIAL SERVICES REP Continue current medication as prescribed Call for any questions or concerns Maintain a heart healthy diet and daily physical activity. Follow up in 3-4 months or sooner if needed, we will recheck some blood work at that time. NCIAL SERVICES REP documented in this encounter Progress Notes * JOSE Neely - 08/09/2021 8:40 AM CSTSummary: weight issues f/u Office Progress Note Reason for Visit: Medication (follow up phentermine ) I introduced and identified myself, received verbal consent from the patient to proceed with this video visit and made the patient aware that the same confidentiality and information specialist practices apply. The patient joined the video visit from Home. I completed the virtual visit from Home. [facility] clinical staff helped with this visit MA: Lyssa Shankar. Total Time Spent in Minutes: 8 History of Present Illness: Patricia presents via virtual visit for f/u of her weight issues. She has been taking phentermine and has now been off of this for one month. She would like to restart this medication as it worked well for her with no reported issues. She does have some dry mouth when taking this but it helped her drink more water throughout the day. She denies any CP, SOB, PÉREZ, dizziness or blurred vision when taking the medication. She started at 196 lbs and is now down to 182 lbs on this medication. Vitamin deficiencies- She did start a b 12 and vitamin d 3 supplement daily, since her labs this past March. We will recheck these levels the next time she comes into the office. ROS: Review of Systems Constitutional: Negative for [...] Known Problems Paternal Grandfather PE: Physical Exam Constitutional: General: She is not in acute distress. Appearance: Normal appearance. She is well-developed and well-groomed. She is not ill-appearing. HENT: Head: Normocephalic and atraumatic. Right Ear: Hearing and external ear normal. Left Ear: Hearing and external ear normal. Nose: Nose normal. Mouth/Throat: Lips: [place]. Mouth: Mucous membranes are moist. Eyes: General: Lids are normal. Vision grossly intact. Gaze aligned appropriately. Extraocular Movements: Extraocular movements intact. Conjunctiva/sclera: Conjunctivae normal. Pulmonary: Effort: Pulmonary effort is normal. No tachypnea, bradypnea, accessory muscle usage, prolonged expiration, respiratory distress or retractions. Musculoskeletal: Cervical back: Full passive range of motion without pain and normal range of motion. Neurological: Mental Status: She is alert and oriented to person, place, and time. Psychiatric: Attention and Perception: Attention and perception normal. Mood and Affect: Mood and affect normal. Speech: Speech normal. Behavior: Behavior normal. Behavior is cooperative. Thought Content: Thought content normal. Cognition and Memory: Cognition and memory normal. Judgment: Judgment normal. Filed Vitals: 08/09/21 0855 Weight: 82.6 kg (182 lb) Height: 5' 7 (1.702 m) Diagnoses/Impression: 1. Overweight with body mass index (BMI) of 28 to 28.9 in adult phentermine 37.5 MG tablet 2. Vitamin B 12 deficiency 3. Vitamin D deficiency Recommendations and Plan: 1. Overweight with body mass index (BMI) of 28 to 28.9 in adult - phentermine 37.5 MG tablet; Take 1 tablet (37.5 mg total) by mouth every morning before breakfast. Dispense: 30 tablet; Refill: 2 - advised to take medication as prescribed - she will maintain a heart healthy diet and daily physical activity. -advised 3-4 month f/u, or sooner if needed 2. Vitamin B 12 deficiency - she will continue to supplement for this deficiency - 3-4 month f/u advised, we will recheck her levels at this time. 3. Vitamin D deficiency - she will continue to supplement for this deficiency - 3-4 month f/u advised, we will recheck her levels at this time. Orders Placed This Encounter ??? DISCONTD: phentermine 37.5 MG tablet ??? phentermine 37.5 MG tablet Cannot display discharge medications since this is not an admission. PCP: JOSE DANIELS 08/09/2021 NCIAL SERVICES REP documented in this encounter Plan of Treatment Not on file documented as of this encounter Visit Diagnoses Diagnosis Overweight with body mass index (BMI) of 28 to 28.9 in adult- Primary Vitamin B 12 deficiency Other B-complex deficiencies Vitamin D deficiency Unspecified vitamin D deficiency documented in this encounter Additional Health Concerns Assessment Noted Time PHQ-9 Depression Total Score: 0 08/09/19 22 8:10 AM FINANCIAL SERVICES REP documented as of this encounter Care Teams Post Anesthesia Room Nurse Relationship Specialty Start Date End Date Carlyn Mcpherson FNP [address] [place] [address] PCP - General Nurse Practitioner Family 04/03/21 documented as of this encounter
--- OUTSIDE RECORDS SUMMARY | 2024-06-28 07:38 | XMS_ITS | Encounter Summary ---
Author Organization [facility] Address [address] [place] [address]. [place] [id number] [place] [address] Care Team Providers Care Periodontal Assistant Name Role Phone Carlyn Mcpherson Primary Care Provider [phone] Encounter Details Date Type Department Care Team (Latest Contact Info) Description 07/31/2022 Travel Social History Tobacco Use Types Packs/Day [...] Coronavirus/COVID-19? No / Unsure 07/31/2022 3:30 PM FAMILY CONSULTANT documented as of this encounter Plan of Treatment Not on file documented as of this encounter Visit Diagnoses Not on filedocumented in this encounter Additional Health Concerns Assessment Noted Time PHQ-9 Depression Total Score: 1 07/31/19 23 4:07 PM FAMILY CONSULTANT documented as of this encounter Care Teams Periodontal Assistant Relationship Specialty Start Date End Date Carlyn Mcpherson FNP [address] [place] [phone] PCP - General Nurse Practitioner Family 04/03/21 documented as of this encounter
--- OUTSIDE RECORDS SUMMARY | 2024-06-28 07:38 | XMS_ITS | Encounter Summary ---
Author Organization [facility] Address [address] [place] [address]. [place], [place] [id number] [place] [address] Care Team Providers Care Hand Tool Lapper Name Role Phone Carlyn Mcpherson Primary Care Provider [phone] Encounter Details Date Type Department Care Team (Late st Contact Info) Description 04/10/2021 8:00 AM CDT Laboratory Only [facility] Medical Group Family & Internal Medicine [address] [phone] Social History Tobacco Use Types Packs/Day Years [...] Procedure Name Priority Date/Time Associated Diagnosis Comments URINALYSIS WI REFLEX TO CULTURE Routine 04/10/2021 8:01 AM CDT Adult BMI 30.0-30.9 kg/sq m Need for hepatitis C screening test Encounter for vitamin deficiency screening Encounter for lipid screening for cardiovascular disease TSH W/REFLEX Routine 04/10/2021 8:01 AM CDT Adult BMI 30.0-30.9 kg/sq m Need for hepatitis C screening test Encounter for vitamin deficiency screening Encounter for lipid screening for cardiovascular disease VITAMIN B-12 Routine 04/10/2021 8:01 AM CDT Adult BMI 30.0-30.9 kg/sq m Need for hepatitis C screening test Encounter for vitamin deficiency screening Encounter for lipid screening for cardiovascular disease URINE BACTERIA CULTURE Routine 04/10/2021 8:01 AM CDT COMPREHENSIVE METABOLIC PANEL Routine 04/10/2021 8:01 AM CDT Adult BMI 30.0-30.9 kg/sq m Need for hepatitis C screening test Encounter for vitamin deficiency screening Encounter for lipid screening for cardiovascular disease LIPID PANEL Routine 04/10/2021 8:01 AM CDT Adult BMI 30.0-30.9 kg/sq m Need for hepatitis C screening test Encounter for vitamin deficiency screening Encounter for lipid screening for cardiovascular disease HEPATITIS C ANTIBODY Routine 04/10/2021 8:01 AM CDT Adult BMI 30.0-30.9 kg/sq m Need for hepatitis C screening test Encounter for vitamin deficiency screening Encounter for lipid screening for cardiovascular disease FOLIC ACID SERUM Routine 04/10/2021 8:01 AM CDT Adult BMI 30.0-30.9 kg/sq m Need for hepatitis C screening test Encounter for vitamin deficiency screening Encounter for lipid screening for cardiovascular disease CBC W/DIFF AUTOMATED Routine 04/10/2021 8:01 AM CDT Adult BMI 30.0-30.9 kg/sq m Need for hepatitis C screening test Encounter for vitamin deficiency screening Encounter for lipid screening for cardiovascular disease VITAMIN D, 25 OH Routine 04/10/2021 8:01 AM CDT Adult BMI 30.0-30.9 kg/sq m Need for hepatitis C screening test Encounter for vitamin deficiency screening Encounter for lipid screening for cardiovascular disease URIC ACID BLOOD Routine 04/10/2021 8:01 AM CDT Adult BMI 30.0-30.9 kg/sq m Need for hepatitis C screening test Encounter for vitamin deficiency screening Encounter for lipid screening for cardiovascular disease COLLECTION VENOUS BLOOD VENIPUNCTURE Routine 04/10/2021 8:00 AM CDT Adult BMI 30.0-30.9 kg/sq m Need for hepatitis C screening test Encounter for vitamin deficiency screening Encounter for lipid screening for cardiovascular disease documented in this encounter Results * CULTURE URINE (04/10/2021 8:01 AM CDT) SPEC DESCRIPTION URINE CLEAN CATCH 04/10/2021 2:59 PM CDT [facility] SPECIAL REQUESTS NO SPECIAL REQUEST 04/10/2021 2:59 PM CDT [facility] CULTURE RESULT NO GROWTH (< OR = 1,000 CFU/ML) 04/10/2021 9:[address] [facility] URINE SPECIMEN OBTAINED BY CLEAN CATCH PROCEDURE / Unknown 04/10/2021 8:01 AM CDT 04/10/2021 5:48 PM CDT Carlyn DAILYP MICROBIOLOGY - GENERAL ORDERAB LES Final Result [facility] [address] [place] [address], [id number] [facility] [address] [place] [address], * (ABNORMAL) CBC W/DIFF AUTOMATED (04/10/2021 8:01 AM CDT) WBC 5.2 4.0 - 10.8 x10'3/uL 04/10/2021 2:49 PM CDT [facility] RBC 4.25 4.10 - 5.40 x10'6/uL 04/10/2021 2:49 PM CDT [facility] HGB 13.9 12.0 - 16.0 G/DL 04/10/2021 2:49 PM CDT [facility] HCT 39.1 36.0 - 47.0 % 04/10/2021 2:49 PM CDT [facility] MCV 92.0 78.0 - 100.0 FL 04/10/2021 2:49 PM CDT [facility] MCH 32.7(H) 27.0 - 31.0 PG 04/10/2021 2:49 PM CDT [facility] MCHC 35.5 33.0 - 36.0 G/DL 04/10/2021 2:49 PM CDT [facility] RDW 12.2 11.5 - 14.5 % 04/10/2021 2:49 PM CDT [facility] PLT 258 150 - 350 x10'3/uL 04/10/2021 2:49 PM CDT [facility] MPV 11.1(H) 7.4 - 10.4 FL 04/10/2021 2:49 PM CDT [facility] DIFFERENTIAL TYPE AUTOMATED DIFFERENTIAL 04/10/2021 2:49 PM CDT [facility] NEUTROPHILS % 50.5 % 04/10/2021 2:49 PM CDT [facility] LYMPHOCYTES % 40.2 % 04/10/2021 2:49 PM CDT [facility] MONOCYTES % 6.8 % 04/10/2021 2:49 PM CDT [facility] EOSINOPHILS % 2.3 % 04/10/2021 2:49 PM CDT [facility] BASOPHILS % 0.2 % 04/10/2021 2:49 PM CDT [facility] ABS. NEUTROPHILS 2.62 1.60 - 8.30 x10'3/uL 04/10/2021 2:49 PM CDT [facility] ABS. LYMPHOCYTES 2.08 0.80 - 4.70 x10'3/uL 04/10/2021 2:49 PM CDT [facility] ABS. MONOCYTES 0.35 0.00 - 1.50 x10'3/uL 04/10/2021 2:49 PM CDT [facility] ABS. EOSINOPHILS 0.12 0.00 - 0.40 x10'3/uL 04/10/2021 2:49 PM CDT [facility] ABS. BASOPHILS 0.01 0.00 - 0.20 x10'3/uL 04/10/2021 2:49 PM CDT [facility] 04/10/2021 8:01 AM CDT Carlyn Mcpherson [facility] Final Result [facility] [address] [place] [address], * (ABNORMAL) LIPID PANEL (04/10/2021 8:01 AM CDT) CHOLESTEROL 182 <200 MG/DL 04/10/2021 4:10 PM CDT [facility] TRIGLYCERIDES 34 <150 MG/DL 04/10/2021 4:10 PM CDT [facility] HDL 59 >40 MG/DL 04/10/2021 4:10 PM CDT [facility] LDL-C 116(H) <100 MG/DL 04/10/2021 4:10 PM CDT [facility] VLDL CALCULATION 7 5 - 28 MG/DL 04/10/2021 4:10 PM CDT [facility] CHOL/HDL RATIO 3.1 0.0 - 4.0 04/10/2021 4:10 PM CDT [facility] LDL/HDL 2.0 0.41 - 2.13 04/10/2021 4:10 PM CDT [facility] [place] [place] NON HDL CHOLESTEROL 123 <140 MG/DL 04/10/2021 4:10 PM CDT [facility] 04/10/2021 8:01 AM CDT Carlyn Mcpherson [facility] Final Result Performing Organization Address [facility]/ZIP Co de Phone Number [facility] [address] [place] [address], [place] [phone] * TSH W/REFLEX (04/10/2021 8:01 AM CDT) TSH 0.902 0.358 - 3.740 uIU/ML 04/10/2021 4:10 PM CDT [facility] 04/10/2021 8:01 AM CDT Carlyn Mcpherson [facility] Final Result Performing Organization Address [facility] Co de Phone Number [address] [address], [place] [phone] * VITAMIN D, 25 [place] (04/10/2021 8:01 AM CDT) VITAMIN D 25 HYDROXY TOTAL S/P/B 29.6 20 - 50 NG/ML 04/10/2021 4:10 PM CDT [facility] Comment: <10 ng/mL (Severe deficiency) 10 TO 19 ng/mL (Mild to Moderate deficiency) 20 TO 50 ng/mL (Optimum levels) 51 TO 80 ng/mL (Increased risk of hypercalciuria) >80 ng/mL (Toxicity possible) 04/10/2021 8:01 AM CDT Carlyn Mcpherson [facility] Final Result Performing Organization Address City/[facility]/ZIP Co de Phone Number [place] [phone] [place] [address], [place] [phone] * (ABNORMAL) URINALYSIS WI REFLEX TO CULTURE (04/10/2021 8:01 AM CDT) COLOR (U) YELLOW 04/10/2021 3:20 PM CDT [facility] TRANSPARENCY SLIGHTLY CLOUDY(A) CLEAR 04/10/2021 3:20 PM CDT [facility] SPECIFIC GRAVITY (U) 1.020 1.003 - 1.040 04/10/2021 3:20 PM CDT [facility] U PH 7.0 5.0 - 9.0 04/10/2021 3:20 PM CDT [facility] PROTEIN (U) NEGATIVE NEGATIVE 04/10/2021 3:20 PM CDT [facility] URINE GLUCOSE NEGATIVE NEGATIVE 04/10/2021 3:20 PM CDT [facility] KETONES MG/DL (U) NEGATIVE NEGATIVE 04/10/2021 3:20 PM CDT [facility] BILIRUBIN (U) NEGATIVE NEGATIVE 04/10/2021 3:20 PM CDT [facility] BLOOD (U) TRACE(A) NEGATIVE 04/10/2021 3:20 PM CDT [facility] UROBILINOGEN 0.2 0.0 - 2.0 EU/DL 04/10/2021 3:20 PM T [facility] NITRITES NEGATIVE NEGATIVE 04/10/2021 3:20 PM CDT [facility] LEUKOCYTES (U) TRACE(A) NEGATIVE 04/10/2021 3:20 PM CDT [facility] REFLEX URINE CULTURE: URINE CULTURE ORDERED 04/10/2021 3:20 PM T [facility] RBC/HPF 0-3 0 - 3 /HPF 04/10/2021 3:20 PM CDT [facility] WBC/HPF 4-9(A) 0 - 3 /HPF 04/10/2021 3:20 PM CDT [facility] EPI/HPF 4-9 /HPF 04/10/2021 3:20 PM CDT [facility] BACTERIA (U) 4+(A) NONE SEEN 04/10/2021 3:20 PM CDT [facility] MUCUS MANY 04/10/2021 3:20 PM CDT [facility] COMMENT (U) Less than 12 ml urine submitted. 04/10/2021 3:20 PM CDT [facility] URINE SPECIMEN OBTAINED BY CLEAN CATCH PROCEDURE / Unknown 04/10/2021 8:01 AM CDT Carlyn Mcpherson [facility] URINE ORDERABLES Final Result Performing Organization Address [facility]/ZIP Co de Phone Number [facility] [address] [place] [address], [place] [phone] * URIC ACID BLOOD (04/10/2021 8:01 AM CDT) URIC ACID 4.9 2.6 - 6.0 MG/DL 04/10/2021 4:10 PM CDT [facility] 04/10/2021 8:01 AM CDT Carlyn Mcpherson [facility] Final Result Performing Organization Address City/[facility]/ZIP Co de Phone Number [facility] [address] [place] [address], [place] [phone] * (ABNORMAL) COMPREHENSIVE METABOLIC PANEL (04/10/2021 8:01 AM CDT) SODIUM S/P/B 139 136 - 145 MMOL/L 04/10/2021 4:10 PM CDT [facility] POTASSIUM S/P/B 4.2 3.5 - 5.1 MMOL/L 04/10/2021 4:10 PM CDT [facility] CHLORIDE S/P/B 103 98 - 107 MMOL/L 04/10/2021 4:10 PM CDT [facility] CO2 24.9 21 - 32 MMOL/L 04/10/2021 4:10 PM CDT [facility] GLUCOSE 84 70 - 99 MG/DL 04/10/2021 4:10 PM CDT [facility] BUN 12 6 - 24 MG/DL 04/10/2021 4:10 PM CDT [facility] CREATININE S/P/B 0.94 0.55 - 1.02 MG/DL 04/10/2021 4:10 PM CDT [facility] CALCIUM S/P/B 8.9 8.4 - 10.5 MG/DL 04/10/2021 4:10 PM CDT [facility] BILIRUBIN TOTAL S/P/B 0.8 0.2 - 1.0 MG/DL 04/10/2021 4:10 PM CDT [facility] ALKALINE PHOSPHATASE S/P/B 54 37 - 98 U/L 04/10/2021 4:10 PM CDT [facility] AST 14(L) 15 - 37 U/L 04/10/2021 4:10 PM CDT [facility] ALT 20 14 - 59 U/L 04/10/2021 4:10 PM CDT [facility] TOTAL PROTEIN S/P/B 7.1 6.4 - 8.2 G/DL 04/10/2021 4:10 PM CDT [facility] ALBUMIN S/P/B 4.2 3.4 - 5.0 G/DL 04/10/2021 4:10 PM CDT [facility] ANION GAP 11.1 5 - 15 MMOL/L 04/10/2021 4:10 PM CDT [facility] Comment:REFERENCE RANGE NOT ESTABLISHED OSMOLALITY (CALC) 287 MOSM/KG 04/10/2021 4:10 PM CDT [facility] Comment:REFERENCE RANGE NOT ESTABLISHED EGFR NON-AFR. AMER. 80(L) >90 ML/MIN/1 .73 M2 04/10/2021 4:10 PM CDT [facility] EGFR AFR. AMER. >90 >90 ML/MIN/1 .73 M2 04/10/2021 4:10 PM CDT [facility] GFR NOTES THE ESTIMATED GFR IS CALCULATED USING THE 2009 CKD-EPI EQUATION. THE FOLLOWING CATEGORIES FOR GRADING RENAL FUNCTION ARE RECOMMENDED BY THE INTERNATIONAL SOCIETY OF NEPHROLOGY (KDIGO 2012 CLINICAL PRACTICE GUIDELINE). 04/10/2021 4:10 PM CDT [facility] Comment: G1,NORMAL OR HIGH: >89 ml/min/1.73 m2 G2,MILDLY DECREASED: 60-89 ml/min/1.73 m2 G3A,MILDLY TO MODERATELY DECREASED: 45-59 ml/min/1.73 m2 G3B,MODERATELY TO SEVERELY DECREASED: 30-44 ml/min/1.73 m2 G4,SEVERELY DECREASED: 15-29 ml/min/1.73 m2 G5,KIDNEY FAILURE: <15 ml/min/1.73 m2 04/10/2021 8:01 AM CDT us Carlyn DAILYP [facility] Final Result Performing Organization Address City/[facility]/ZIP Co de Phone Number [facility] [address] [place] [address], * VITAMIN B-12 (04/10/2021 8:01 AM CDT) VITAMIN B12 S/P/B 354 193 - 986 PG/ML 04/10/2021 4:10 PM CDT [facility] 04/10/2021 8:01 AM CDT Carlyn Mcpherson [facility] Final Result [facility] [address] [place] [address], * (ABNORMAL) FOLIC ACID SERUM (04/10/2021 8:01 AM CDT) [facility] FOLATE 17.8(H) 3.1 - 17.5 NG/ML 04/10/2021 4:10 PM CDT [facility] 04/10/2021 8:01 AM CDT Carlyn GARCIA [facility] Final Result Performing Organization Address City/[facility]/ZIP Co de Phone Number [facility] [address] [place] [address], * HEPATITIS C ANTIBODY (04/10/2021 8:01 AM CDT) [facility] HEPATITIS C AB NON-REACTI VE NON-REACT [place] 04/10/2021 6:[address] [facility] Comment: ANTIBODIES TO HCV NOT DETECTED. DOES NOT EXCLUDE THE POSSIBILITY OF EXPOSURE TO HCV. 04/10/2021 8:01 AM CDT us Carlyn GARCIA [facility] Final Result [facility] [address] [place] [address], [id number] documented in this encounter Visit Diagnoses Diagnosis Adult BMI 30.0-30.9 kg/sq m- Primary Body Mass Index 30.0-30.9, adult Need for hepatitis C screening test Special screening examination for other specified viral diseases Encounter for vitamin deficiency screening Screening for other and unspecified endocrine, nutritional, metabolic, and immunity disorders Encounter for lipid screening for cardiovascular disease documented in this encounter Additional Health Concerns Assessment Noted Time PHQ-9 Depression Total Score: 1 04/03/20 21 9:27 AM CDT documented as of this encounter Care Teams Hand Tool Lapper Relationship Specialty Start Date End Date Carlyn Mcpherson FNP [address] [place] [address] PCP - General Nurse Practitioner Family 04/03/21 documented as of this encounter
--- OUTSIDE RECORDS SUMMARY | 2024-06-28 07:38 | XMS_ITS | Encounter Summary ---
Author Organization [facility] Address [address] [place] [address]. [place] [id number] [place] [address] Care Team Providers Care Principal Java Developer Name Role Phone Carlyn Mcpherson Primary Care Provider [phone] Encounter Details Date Type Department Care Team (Latest Contact Info) Description 09/03/2022 Travel Social History Tobacco Use Types Packs/Day [...] PM CDT documented as of this encounter Plan of Treatment Not on file documented as of this encounter Visit Diagnoses Not on filedocumented in this encounter Additional Health Concerns Assessment Noted Time PHQ-9 Depression Total Score: 1 07/31/19 23 4:07 PM PREMIUM REPRESENTATIVE documented as of this encounter Care Teams Principal Java Developer Relationship Specialty Start Date End Date Carlyn Mcpherson FNP [address] [place] [id number] PCP - General Nurse Practitioner Family 04/03/21 documented as of this encounter
--- OUTSIDE RECORDS SUMMARY | 2024-06-28 07:38 | XMS_ITS | Encounter Summary ---
Author Organization [facility] Address [address] [place] [address]. [place], [place] [id number] [place] [address] Care Team Providers Care Hide Tanner Name Role Phone Carlyn Mcpherson Primary Care Provider [phone] Encounter Details Date Type Department Care Team (Late st Contact Info) Description 09/26/2022 MyChart Message Enc [facility] Family & Internal Medicine [address] [address] Carlyn Mcpherson FNP [address] [place] [address] [phone] Question Social History Tobacco Use Types Packs/Day Years [...] PM CDT documented as of this encounter Progress Notes * JOSE Neely - 09/26/2022 9:33 AM CDT Okay for fluconazole 150 mg take one now, may repeat in 72 hours dsp 2 tabs documented in this encounter Plan of Treatment Not on file documented as of this encounter Visit Diagnoses Diagnosis Yeast infection- Primary Other and unspecified mycoses documented in this encounter Additional Health Concerns Assessment Noted Time PHQ-9 Depression Total Score: 1 07/31/19 23 4:[address]IVER documented as of this encounter Care Teams Hide Tanner Relationship Specialty Start Date End Date Carlyn Mcpherson FNP [address] [place] [id number] PCP - General Nurse Practitioner Family 04/03/21 documented as of this encounter
--- OUTSIDE RECORDS SUMMARY | 2024-06-28 07:38 | XMS_ITS | Encounter Summary ---
Author Organization [facility] Address [address] [place] [address]. [place], [place] [address] [place] [address] Care Team Providers Care Proposal Engineer Name Role Phone Carlyn Mcpherson Primary Care Provider [phone] Encounter Details Date Type Department Care Team (Late st Contact Info) Description 08/09/[address] [facility] Family & Internal Medicine - [address] [address] Carlyn Mcpherson FNP [address] [place] [address] [phone] Social History Tobacco Use Types Packs/Day Years [...] Coronavirus/COVID-19? No / Unsure 07/31/2022 3:30 PM RADIO REPAIR TEACHER documented as of this encounter Progress Notes * JOSE Neely - 08/09/2022 4:32 PM CST Medication sent to pharm O REPAIR TEACHER documented in this encounter Plan of Treatment Not on file documented as of this encounter Visit Diagnoses Diagnosis Class 1 obesity due to excess calories without serious comorbidity with body mass index (BMI) of 30.0 to 30.9 in adult- Primary documented in this encounter Additional Health Concerns Assessment Noted Time PHQ-9 Depression Total Score: 1 07/31/19 23 4:07 PM RADIO REPAIR TEACHER documented as of this encounter Care Teams Proposal Engineer Relationship Specialty Start Date End Date Carlyn Mcpherson FNP [address] [place] [id number] PCP - General Nurse Practitioner Family 04/03/21 documented as of this encounter
--- OUTSIDE RECORDS SUMMARY | 2024-06-28 07:38 | XMS_ITS | Encounter Summary ---
Author Organization [facility] Address [address] [place] [address]. [place] [address] [place] [address] Care Team Providers Care Tool Repair Technician Name Role Phone Carlyn Mcpherson Primary Care Provider [phone] Encounter Details Date Type Department Care Team (Late st Contact Info) Description 07/31/2022 ABS Message [facility] [address] [place] [address] Mychart, [facility] Provider Patient Name Change Request Social History Tobacco Use Types Packs/Day Years [...] Coronavirus/COVID-19? No / Unsure 07/31/2022 3:30 PM SOCIETY EDITOR documented as of this encounter Plan of Treatment Not on file documented as of this encounter Visit Diagnoses Not on filedocumented in this encounter Additional Health Concerns Assessment Noted Time PHQ-9 Depression Total Score: 1 07/31/19 23 4:07 PM SOCIETY EDITOR documented as of this encounter Care Teams Tool Repair Technician Relationship Specialty Start Date End Date Carlyn Mcpherson FNP [facility] [place] [address] PCP - General Nurse Practitioner Family 04/03/21 documented as of this encounter
--- OUTSIDE RECORDS SUMMARY | 2024-06-28 07:38 | XMS_ITS | Encounter Summary ---
Author Organization [facility] Address [address] [place] [address]. [place], [place] [id number] [place] [address] Care Team Providers Care Earring Maker Name Role Phone Carlyn Mcpherson Primary Care Provider [phone] Encounter Details Date Type Department Care Team (Late st Contact Info) Description 07/06/2021 Patient Self-Triage MYCHART DEPARTMENT [address] [place] [address] [facility] Provider Social History Tobacco Use Types Packs/Day Years [...] documented as of this encounter Care Teams Earring Maker Relationship Specialty Start Date End Date Carlyn Mcpherson FNP [address] [place] [address] PCP - General Nurse Practitioner Family 04/03/21 documented as of this encounter
--- OUTSIDE RECORDS SUMMARY | 2024-06-28 07:38 | XMS_ITS | Encounter Summary ---
Author Organization [facility] Address [address] [place] [address]. [place], [place] [id number] [place] [address] Care Team Providers Care Operations Expert Name Role Phone Ky Carlyn JOSE Primary Care Provider [phone] Reason for Visit * Reason Comments Physical Encounter Details Date Type Department Care Team (Late st Contact Info) Description 04/03/2021 9:00 AM CDT Office Visit [facility] Family & Internal Medicine [address] [phone] Carlyn Mcpherson FNP [address] [place] [id number] Physical Social History Tobacco Use Types Packs/Day Years [...] AM CDT documented as of this encounter Last Filed Vital Signs Vital Sign Reading Time Taken Comments Blood Pressure 110/89 04/03/2021 8:59 AM CDT Pulse 72 04/03/2021 8:59 AM CDT Temperature 36.5 ??C (97.7 ??F) 04/03/2021 8:59 AM CD T Respiratory Rate 16 04/03/2021 8:59 AM CDT Oxygen Saturation 99% 04/03/2021 8:59 AM CDT Inhaled Oxygen Concentration - - Weight 88.9 kg (196 lb) 04/03/2021 8:59 AM CDT Height 170.2 cm (5' 7 ) 04/03/2021 8:59 AM CDT Body Mass Index 30.7 04/03/2021 8:59 AM CDT documented in this encounter Patient Instructions * Patient Instructions* Carlyn JOSE Mcpherson - 04/03/2021 9:00 AM CDT Images from the original note were not included. Start taking phentermine daily for weight loss. You may start with a half of a tablet daily and increase up to a whole tablet daily Stop this medication if you develop any chest pain, shortness of breath, headaches, dizziness or blurred vision as we discussed. maintain a heart healthy diet and daily physical activity. Return, when you are fasting to get your routine blood work done and we will call you with your results when they come back, Call for any questions or concerns Follow up in one month or sooner if needed, Patient Education Patient Education Weight Loss Diet About this topic There are many trendy weight loss diets that are popular today. Many of these diets can end up being more harmful than helpful. The healthiest way to lose weight is to burn more calories than you eat. A weight loss diet should help you have a healthy view of eating. It is NOT healthy to stop eating to try and lose weight. A good diet plan will help you cut down your food intake and make healthy choices. A healthy weight loss goal is 1 to 2 pounds (0.5 to 1 kg) per week. Reducing calories in your diet,burning calories through exercise, or both can help you lose weight. Combining a healthy diet with regular physical activity can help you get the best results. To cut calories in your diet you can: ?? Switch from whole milk to 1% or skim milk. ?? Switch from regular cheese to low-fat or fat-free cheese. ?? Use healthier condiment choices: ? Fat-free or low-fat sour cream or salad dressings ? Saragosa butter ? Diet syrups or jellies over regular ?? Try frozen yogurt as a dessert rather than eating ice cream. ?? Skip the chips. Snack on carrots, vegetables, or fruit. If chips are a favorite of yours, try the baked style and watch portion size. ?? Eat grilled, roasted, boiled, broiled, or baked meats. Avoid deep-frying. Choose skinless poultry, lean red meat, lean cuts of pork, and fish for good protein sources. ?? Try flavored no-calorie cassidy. Do not drink soda and juices that have many calories. ?? Choose fruit instead of sweets. General ?? Eating smaller meals more often may be helpful. This will keep you from overeating at your next meal. Also, eating meals slowly helps you feel full faster. ?? If eating 3 meals is a part of your lifestyle, choose more lean proteins and higher fiber foods to fill you up at each meal. ?? Do not skip meals. Most often if you skip a meal, you eat too much at the next meal. ?? Eat smaller portions. Use a smaller plate or bowl for meals, and when you are eating out, eat half and take the rest home. ?? Plan ahead. Plan your meals and grocery list before going to the store. Planning will keep you from getting meals from restaurants. ?? Do not go to the grocery store hungry. You are more likely to buy snacks that are not good for you. ?? Portion out snacks. When you are having a snack, instead of grabbing the whole bag, portion a small amount out to give yourself a stopping point. ?? Drink water before and after your meals to help fill you up without the calories. ?? When eating starchy foods, choose whole-grain products. These have a lot of fiber which will make you feel full. Fiber also helps lower cholesterol and helps with bowel function. ?? If you need a helpful start, ask your doctor to send you to a dietitian for weight loss help. What will the results be? Losing excess weight will make your whole body healthier. You will have more energy for your daily activities and lower your risk for health problems. What lifestyle changes are needed? Stay active. Eating healthy is not always enough to lose weight. Burning calories by exercising is a big part of weight loss. What foods are good to eat? The baron is to watch your portion sizes. It is best to choose foods that are lower in fat and calories. ?? Choose lean meats: ? Boneless, skinless chicken breast ? Pork loin ? 90% lean beef ? Lean turkey meat ? Fresh fish (not fried) ?? Choose low-fat dairy products: ? 1% or skim milk ? Saragosa butter or margarine ? Low-fat or fat-free cheese ? Frozen yogurt or low-calorie ice cream ?? Choose fresh fruits, vegetables, beans and lentils, and whole wheat products more often. ?? Choose water to drink more often. Drink diet or no-calorie beverages when you want something other than water. Aim to get your calories from the foods you eat. ?? Choose smart snacks: ? Fruits ? Vegetables ? Low-fat or nonfat yogurt ? Low-fat or no-fat cheese, such as cottage cheese ? Unsalted nuts ? Hard-boiled egg ? Hummus ? Guacamole ? Natural peanut butter ? Popcorn with no butter ? use pepper, garlic, or another spice to taste ? Whole grain crackers What foods should be limited or avoided? Limit high-fat, high-sodium, and high-calorie foods like: ?? Fried foods ?? Processed meats ?? Whole-fat dairy products ?? Candy, cookies, chips, pastries ?? Sausage, villalobos, any full-fat meats ?? Soda, juice ?? Beer, wine, and mixed drinks (alcohol) Will there be any other care needed? What do I do first before trying to lose weight? ?? Talk to your doctor and dietitian to see if you need to lose weight. Work with them to set your weight loss goals. ?? If you have a chronic illness, such as high blood sugar or high blood pressure, ask a doctor or dietitian what diet and exercise is right for you. ?? Ask your doctor about how much you are able to exercise and what type of exercise is good for you. Helpful tips ?? Keep a food journal to help keep you on track. ?? Join a support group. Tips for burning calories: ?? If your workplace is near your house, choose to walk or bike to work instead of driving. ?? Take 20-minute walks each day. Walk around during your lunch break. You will not only burn calories, but will raise your energy for the rest of the day. ?? Take the stairs over the elevator. ?? Join a gym or exercise class with a friend. ?? Try to exercise 30 minutes a day for overall health. Three 10-minute sessions work too. Aim for 60 to 90 minutes a day to lose weight. ?? Drink lots of water before, during, and after exercise. Where can I learn more? Academy of Nutrition and Dietetics https://www.eatright.org/health/weight-loss/kphw-lasqon-otq-your-weight/back-to- qsfcbp-gpv-uflepax-weight-loss Centers for Disease Control and Prevention https://www.cdc.gov/healthyweight/healthy_eating/index.html Familydoctor.org https://familydoctor.org/mhtfpjdtu-zopcto-inub-abbp-ngce-eqe-diets/ NHS https://www.nhs.uk/live-well/healthy-weight/66-htjz-bv-tstu-bri-lnbx-weight/?tab name=lng-vwy-usca-weight Last Reviewed Date 2020-12-08 Consumer Information Use and Disclaimer This information is not specific medical advice and does not replace information you receive from your health care provider. This is only a brief summary of general information. It does NOT include all information about conditions, illnesses, injuries, tests, procedures, treatments, therapies, discharge instructions or life-style choices that may apply to you. You must talk with your health care provider for complete information about your health and treatment options. This information should not be used to decide whether or not to accept your health care provider???s advice, instructions or recommendations. Only your health care provider has the knowledge and training to provide advice that is right for you. Copyright Copyright ?? 2020 [employer]. and its affiliates and/or licensors. All rights reserved. documented in this encounter Progress Notes * JOSE Neely - 04/03/2021 9:00 AM CDTSummary: establish care and weight issues. Office Progress Note Reason for Visit: Physical History of Present Illness: Patricia presents to the office as a new patient to establish care. Denies any known significant medical history. She stated that both her paternal and maternal grandparents have a history of type 2 diabetes. 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 Weight issues- Reports that she eats well but doesn't track her calorie intake. She stated that she tries to eat healthy nutritious meals. Reports that she does exercise frequently. Denies ever taking anything in the past for weight loss. Denies CP, SOB, dizziness, blurred vision, headaches, or heart palpitations. She would like to try something to help with weight loss. Chronic nausea- She reports that, when she works nights, she gets chronic nausea and her previous PCP would prescribe her zofran as needed. She reports that she does not need this everyday. 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 Lives at home with her daughter and fiance. Feels safe at home. Sexually active. No concerns for STDs. Has a Mirena in place. Last dental exam: 9 months ago Last vision exam: 2 months ago. Last pap smear: March 2020. Reports that she does have a history of abnormal results. Never had a mammogram. No family history of breast cancer. She has received both of her COVID vaccines and flu vaccine from her employer Drinks alcohol occasionally. Denies smoking cigarettes and illicit drug use. ROS: Review of Systems Constitutional: Negative for [...] orthopnea, claudication, leg swelling and PND. Gastrointestinal: Positive for nausea (due to working nightshift, chronic). Negative for abdominal pain, blood in stool, constipation, diarrhea, heartburn, melena and vomiting. Genitourinary: Negative for dysuria, flank [...] device Take 1 device by intrauterine route. No current facility-administered medications on file prior [...] Never Smoker ??? Smokeless tobacco: Never Used Substance and Sexual Activity ??? Alcohol use: Yes Comment: 1 x q month ??? Drug use: Never ??? Sexual activity: Not on file Other Topics Concern ??? Not on file Social History Narrative ??? Not on file Social Determinants of Health Financial Resource Strain: ??? Difficulty of Paying Living Expenses: Food Insecurity: ??? Worried About Running Out of Food in the Last Year: ??? Ran Out of Food in the Last Year: Transportation Needs: ??? Lack of Transportation (Medical): ??? Lack of Transportation (Non-Medical): Physical Activity: ??? Days of Exercise per Week: ??? Minutes of Exercise per Session: Stress: ??? Feeling of Stress : Social Connections: ??? Frequency of Communication with Friends and Family: ??? Frequency of Social Gatherings with Friends and Family: ??? Attends Hoahaoism Services: ??? Active Member of Clubs or Organizations: ??? Attends Club or Organization Meetings: ??? Marital Status: Intimate Partner Violence: ??? Fear of Current or Ex-Partner: ??? Emotionally Abused: ??? Physically Abused: ??? Sexually Abused: Family History: Family History Problem Relation Name Age of Onset ??? No Known Problems Father ??? Asthma Sister ??? Diabetes Maternal Grandmother ??? Diabetes Maternal Grandfather ??? Diabetes Paternal Grandmother ??? Stroke Paternal Grandmother ??? No Known Problems Paternal Grandfather PE: Physical Exam Constitutional: She is oriented to person, place, and time. Vital signs are normal. She appears well-developed and well-nourished. She is cooperative. She does not have a sickly appearance. She does not appear ill. No distress. HENT: Head: Normocephalic and atraumatic. Right Ear: Hearing, tympanic membrane, external ear and ear canal normal. Left Ear: Hearing, tympanic membrane, external ear and ear canal normal. Nose: Nose normal. Mouth/Throat: Uvula is midline, oropharynx is clear and moist and mucous membranes are normal. Eyes: Pupils are equal, round, and reactive to light. Conjunctivae, EOM and lids are normal. Neck: Trachea normal and phonation normal. Normal carotid pulses present. Carotid bruit is not present. No thyroid mass present. Cardiovascular: Normal rate, regular rhythm, normal heart sounds and intact distal pulses. Pulmonary/Chest: Effort normal and breath sounds normal. No accessory muscle usage. No respiratory distress. She has no decreased breath sounds. She has no wheezes. She has no rhonchi. She has no rales. Abdominal: Soft. Normal appearance and bowel sounds are normal. She exhibits no abdominal bruit andno pulsatile midline mass. There is no hepatosplenomegaly. There is no abdominal tenderness. There is no CVA tenderness. Musculoskeletal: Cervical back: Full passive range of motion without pain, normal range of motion and neck supple. No spinous process tenderness or muscular tenderness. Lymphadenopathy: She has no cervical adenopathy. Neurological: She is alert and oriented to person, place, and time. She has normal strength. No cranial nerve deficit or sensory deficit. Coordination and gait normal. Skin: Skin is warm, dry and intact. No rash noted. Psychiatric: She has a normal mood and affect. Her speech is normal and behavior is normal. Judgment and thought content normal. Cognition and memory are normal. Filed Vitals: 04/03/21 0859 BP: 110/89 Pulse: 72 Resp: 16 Temp: 97.7 ??F (36.5 ??C) SpO2: 99% Weight: 88.9 kg (196 lb) Height: 5' 7 (1.702 m) Diagnoses/Impression: 1. Encounter for medical examination to establish care 2. Chronic nausea ondansetron 4 MG disintegrating tablet 3. Adult BMI 30.0-30.9 kg/sq m CBC W/DIFF AUTOMATED TSH W/REFLEX URINALYSIS WI REFLEX TO CULTURE URIC ACID BLOOD COMPREHENSIVE METABOLIC PANEL phentermine 37.5 MG tablet 4. Encounter for lipid screening for cardiovascular disease LIPID PANEL 5. Encounter for vitamin deficiency screening VITAMIN D, 25 OH VITAMIN B-12 FOLIC ACID SERUM 6. Need for hepatitis C screening test HEPATITIS C ANTIBODY Recommendations and Plan: 1. Encounter for medical examination to establish care 2. Chronic nausea - ondansetron 4 MG disintegrating tablet; Take 1 tablet (4 mg total) by mouth every 8 (eight) hoursas needed for Nausea. Dispense: 30 tablet; Refill: 1 - she will take medications as directed and prescribed. - advised to f/u routinely or sooner if needed. 3. Adult BMI 30.0-30.9 kg/sq m - CBC W/DIFF AUTOMATED; Future - TSH W/REFLEX; Future - URINALYSIS WI REFLEX TO CULTURE; Future - URIC ACID BLOOD; Future - COMPREHENSIVE METABOLIC PANEL; Future - phentermine 37.5 MG tablet; Take 1 tablet (37.5 mg total) by mouth every morning before breakfastfor 30 days. Dispense: 30 tablet; Refill: 0 - advised to start medication as directed and prescribed. Discussed calling for any issues or concerns. - advised to maintain a heart healthy diet and daily physical activity. We also discussed maintaining a food diary to make sure that she is staying within her calories per day max. - labs as ordered - one month f/u advised, or sooner if needed. 4. Encounter for lipid screening for cardiovascular disease - LIPID PANEL; Future - advised to maintain a heart healthy diet and daily physical activity. - labs as ordered - routine follow up advised, sooner if needed. 5. Encounter for vitamin deficiency screening - VITAMIN D, 25 OH; Future - VITAMIN B-12; Future - FOLIC ACID SERUM; Future - labs as ordered - routine, 6 month f/u advised, sooner if needed. 6. Need for hepatitis C screening test - HEPATITIS C ANTIBODY; Future - screening lab ordered Orders Placed This Encounter ??? CBC W/DIFF AUTOMATED ??? LIPID PANEL ??? TSH W/REFLEX ??? VITAMIN D, 25 OH ??? URINALYSIS WI REFLEX TO CULTURE ??? URIC ACID BLOOD ??? COMPREHENSIVE METABOLIC PANEL ??? VITAMIN B-12 ??? FOLIC ACID SERUM ??? HEPATITIS C ANTIBODY ??? levonorgestrel (MIRENA, 52 MG,) 20 MCG/24HR IUD ??? DISCONTD: valACYclovir 1 g tablet ??? phentermine 37.5 MG tablet ??? ondansetron 4 MG disintegrating tablet Cannot display discharge medications since this is not an admission. I spent 45 minutes today reviewing the patient's medical record, obtaining history, performing an exam, ordering medications, tests, and/or procedures, documenting in the medical record, counseling and educating the patient/family/caregiver, reviewing and communicating test results and coordinationof care. PCP: JOSE DANIELS 04/03/2021 documented in this encounter Plan of Treatment Not on file documented as of this encounter Visit Diagnoses Diagnosis Encounter for medical examination to establish care- Primary Chronic nausea Nausea alone Adult BMI 30.0-30.9 kg/sq m Body Mass Index 30.0-30.9, adult Encounter for lipid screening for cardiovascular disease Encounter for vitamin deficiency screening Screening for other and unspecified endocrine, nutritional, metabolic, and immunity disorders Need for hepatitis C screening test Special screening examination for other specified viral diseases documented in this encounter Additional Health Concerns Assessment Noted Time PHQ-9 Depression Total Score: 1 04/03/20 21 9:27 AM CDT documented as of this encounter Care Teams Operations Expert Relationship Specialty Start Date End Date Carlyn Mcpherson FNP [address] [place] [address] PCP - General Nurse Practitioner Family 04/03/21 documented as of this encounter
--- OUTSIDE RECORDS SUMMARY | 2024-06-28 07:38 | XMS_ITS | Encounter Summary ---
Author Organization [facility] Address [address] [place] [address]. [place], [place] [id number] [place] [address] Care Team Providers Care Bridge Builder Name Role Phone Carlyn Mcpherson Primary Care Provider [phone] Encounter Details Date Type Department Care Team (Latest Contact Info) Description 04/10/2021 - 04/10/2021 11:59 PM CDT Hospital Encounter [facility] [address] [place] [address] Carlyn Mcpherson FNP [address] [place] [address] Discharge Disposition: Home or Self [...] AM CDT documented as of this encounter Medications at Time of Discharge levonorgestrel (MIRENA, 52 MG,) 20 MCG/24HR IUD Mirena 20 mcg/24 hours (7 yrs) 52 mg intrauterine device Take 1 device by intrauterine route. 10/04/19 24 ondansetron 4 MG disintegrating tabletIndications:C hronic nausea Take 1 tablet (4 mg total) by mouth every 8 (eight) hours as needed for Nausea. 30 tablet 1 1 10/04/19 24 phentermine 37.5 MG tabletIndications:A dult BMI 30.0-30.9 kg/sq m Take 1 tablet (37.5 mg total) by mouth every morning before breakfast for 30 days. 30 tablet 1 05/03/20 21 documented as of this encounter Plan of Treatment Not on file documented as of this encounter Visit Diagnoses Not on filedocumented in this encounter Additional Health Concerns Assessment Noted Time PHQ-9 Depression Total Score: 1 04/03/20 9:27 AM CDT documented as of this encounter Care Teams Bridge Builder Relationship Specialty Start Date End Date Carlyn Mcpherson FNP [address] [place] [address] PCP - General Nurse Practitioner Family 04/03/21 documented as of this encounter
--- OUTSIDE RECORDS SUMMARY | 2024-06-28 07:38 | XMS_ITS | Encounter Summary ---
Author Organization [facility] Address [address] [place] [address]. [place] [id number] [place], [place] [id number] Care Team Providers Care Telegraph Dispatcher Name Role Phone Unavailable Primary Care Provider Unavailabl e Encounter Details Date Type Department Care Team (Late st Contact Info) Description 02/17/2021 Orders Only [facility] [place] [address] Enmanuel Olvera MD Social History Tobacco Use Types Packs/Day Years Used Date Smoking Tobacco: Never Assessed Comments Unknown Sex and Gender Information Value Date Recorded Sex Assigned at Not on file Legal Sex Female 11:20 AM CDT Gender Identity Not on file Sexual Orientation Not on file documented as of this encounter Plan of Treatment Not on file documented as of this encounter Visit Diagnoses Diagnosis Encounter for screening for COVID-19 documented in this encounter
--- OUTSIDE RECORDS SUMMARY | 2024-06-28 07:38 | XMS_ITS | Encounter Summary ---
Author Organization [facility] Address [address] [place] [address]. [place] [id number] [place] [address] Care Team Providers Care Resident Care Coordinator Name Role Phone Carlyn Mcpherson Primary Care Provider [phone] Encounter Details Date Type Department Care Team (Latest Contact Info) Description 08/09/2021 Travel Social History Tobacco Use Types Packs/Day [...] Coronavirus/COVID-19? Unable to assess 08/09/2021 6:52 AM STORE HAND documented as of this encounter Plan of Treatment Not on file documented as of this encounter Visit Diagnoses Not on filedocumented in this encounter Additional Health Concerns Assessment Noted Time PHQ-9 Depression Total Score: 0 08/09/19 22 8:10 AM STORE HAND documented as of this encounter Care Teams Resident Care Coordinator Relationship Specialty Start Date End Date Carlyn Mcpherson FNP [address] [place] [address] PCP - General Nurse Practitioner Family 04/03/21 documented as of this encounter
--- OUTSIDE RECORDS SUMMARY | 2024-06-28 07:42 | XMS_ITS | Encounter Summary ---
Author Organization [facility] Address [address] [place] [address] Care Team Providers Care Church Warden Name Role Phone Unknown, Notinfile Primary Care Provider Unavail able Encounter Details Date Type Department Care Team (Late st Contact Info) Description 10/29/2023 9:25 AM CDT Lab [address] [phone] Social History Tobacco Use Types Packs/Day Years Used Date Smoking Tobacco: Never Assessed Personal Safety Answer Date Recorded Getting School Help Needed Not on file 10/13 Comments Unknown Sex and Gender Information Value Date Recorded Sex Assigned at Female 10/29/2023 12:20 PM CDT Legal Sex Female 8:17 AM CDT Gender Identity Not on file Sexual Orientation Straight 10/29/2023 12 :20 PM CDT documented as of this encounter Plan of Treatment Not on file documented as of this encounter Procedures Procedure Name Priority Date/Time Associated Diagnosis Comments HCG, BLOOD, QUANTITATIVE Routine 10/29/2023 9:33 AM CDT documented in this encounter Results * (ABNORMAL) hCG, blood, quantitative (10/29/2023 9:33 AM CDT) hCG, quant 17,826.0( H) 0.0 - 5.0 IUnits/L Comment: Interpretive Data Male: < 5 IU/L Non- premenopausal Female: <5 IU/L The Aleksandra hCG Beta Quant assay procedure was used. Results from different manufacturers or methods may not be comparable. ??Serial testing should be performed using the same method. Interpretive Data was last revised on 2023 Blood 10/29/2023 9:33 AM CDT 10/29/2023 9:33 AM CDT us Jose Carlos Alberto MD LAB BLOOD ORDERABLES Final Result [facility] [address] [address] Department [place] [address] documented in this encounter Visit Diagnoses Not on filedocumented in this encounter Care Teams Church Warden Relationship Specialty Start Date End Date Unknown, Notinfile PCP - General 08/09/22 documented as of this encounter
--- OUTSIDE RECORDS SUMMARY | 2024-06-28 07:42 | XMS_ITS | Clinical Summary ---
Author Organization [facility] Office Building [address] [place] [phone] Care Team Providers Care Preschool Lead Teacher Name Role Phone Unknown, Notinfile Primary Care Provider Unavail able Allergies No known active allergies Medications azithromycin (ZITHROMAX) 250 mg tabletIndications:U pper Respiratory/HEENT Infection Day 1: Take 2 tablets once daily. Day 2-5: Take 1 tablet once daily. 6 tablet 3 Active ondansetron ODT (ZOFRAN-ODT) 4 mg disintegrating tabletIndications:n ausea and vomiting Take 1 tablet (4 mg total) by mouth every 8 (eight) hours as needed for nausea or vomiting 20 tablet 1 4 Active Social History Tobacco Use Types Packs/Day Years Used Date Smoking Tobacco: Never Assessed Personal Safety Answer Date Recorded Getting School Help Needed Not on file 10/13 Comments Unknown Sex and Gender Information Value Date Recorded Sex Assigned at Female 10/29/2023 12:20 PM CDT Legal Sex Female 8:17 AM CDT Gender Identity Not on file Sexual Orientation Straight 10/29/2023 12 :20 PM CDT Plan of Treatment Health Maintenance Due Date Last Done Comments Cervical Cancer Screening 1988 Depression Screening 1988 Hepatitis C Screening 1988 DTaP/Tdap/Td Vaccine (1 - Tdap) 02/25/1999 Varicella Vaccines (1 of 2 - 13+ 2-dose series) 02/25/2001 Hepatitis B Screening 02/25/2006 Regular Well Visit/Exam 18-64 02/25/2006 Influenza Vaccine (#1) 2024 04/09/2023 HPV Vaccines Aged Out No longer eligi ble based on patient's age to complete this topic Pneumococcal vaccine <65 Aged Out No longer eligible based on patient's age to complete this topic Insurance IDPA [employer] ALLEGIANCE Care Teams Preschool Lead Teacher Relationship Specialty Start Date End Date Unknown, Notinfile PCP - General 08/09/22
--- OUTSIDE RECORDS SUMMARY | 2024-06-28 07:42 | XMS_ITS | Referral Summary ---
Author Organization [facility] Office Building [address] [place] [phone] Care Team Providers Care Education Associate Name Role Phone Unknown, Notinfile Primary Care [...] 12 :20 PM CDT Plan of Treatment Not on file Insurance IDPA [facility] ALLEGIANCE Care Teams Education Associate Relationship Specialty Start Date End Date Unknown, Notinfile PCP - General 08/09/22
--- OUTSIDE RECORDS SUMMARY | 2024-06-28 07:43 | XMS_ITS | Encounter Summary ---
Author Organization [facility] Healthcare Address [address] [place] [address] Care Team Providers Care Helicopter Pilot Instructor Name Role Phone Unknown, Notinfile Primary Care Provider Unavail able Encounter Details Date Type Department Care Team (Late st Contact Info) Description 08/09/2022 8:45 AM OPTICIAN APPRENTICE Lab [address] [phone] Social History Tobacco Use Types [...] Procedure Name Priority Date/Time Associated Diagnosis Comments EGFR Routine 08/09/2022 9:10 AM OPTICIAN APPRENTICE DIFFERENTIAL AUTO Routine 08/09/2022 9:1 0 AM OPTICIAN APPRENTICE THYROID FUNCTION CASCADE Routine 08/09/2022 9:10 AM OPTICIAN APPRENTICE URINALYSIS AND REFLEX TO MICROSCOPIC AND CULTURE Routine 08/09/2022 9:10 AM OPTICIAN APPRENTICE CBC WITH AUTO DIFFERENTIAL Routine 08/09/2022 9:10 AM OPTICIAN APPRENTICE VITAMIN D 25 HYDROXY Routine 08/09/2022 9:10 AM OPTICIAN APPRENTICE URINALYSIS, MICROSCOPIC ONLY Routine 08/09/2022 9:10 AM OPTICIAN APPRENTICE URIC ACID Routine 08/09/2022 9:10 AM OPTICIAN APPRENTICE FOLATE Routine 08/09/2022 9:10 AM OPTICIAN APPRENTICE VITAMIN B12 Routine 08/09/2022 9:10 AM OPTICIAN APPRENTICE LIPID PANEL Routine 08/09/2022 9:10 AM OPTICIAN APPRENTICE COMPREHENSIVE METABOLIC PANEL Routine 08/09/2022 9:10 AM OPTICIAN APPRENTICE documented in this encounter Results * eGFR (08/09/2022 9:10 AM OPTICIAN APPRENTICE) [facility] eGFR 81 mL/min/1. 73 m2 JOHN GALLEGOS Comment: Interpretive Data Reference Interval Normal ?>/= 90 mL/min/1.73m2 Mildly decreased* ? 60 - 89 mL/min/1.73m2 Mildly to moderately decreased ?45 - 59 mL/min/1.73m2 Moderately to severely decreased ??30 - 44 mL/min/1.73m2 Severely decreased ?15 - 29 mL/min/1.73m2 Kidney Failure ?< 15 ??mL/min/1.73m2 *Relative to young adult level Estimated glomerular filtration rate is determined by the 2020 CKD-EPI equation recommended by the National Kidney Foundation (A Unifying Approach to GFR Estimation: Recommendations of the NKF-ASK Task Force on Reassessing the Inclusion of Race in Diagnosing Kidney Disease, JASN 202). The CKD-EPI equation should not be used for patients with unstable renal function and has not been validated in children and those over 70. Current interpretive data was last reviewed 2021. Blood 08/09/2022 9:10 AM OPTICIAN APPRENTICE 08/09/2022 2:07 PM OPTICIAN APPRENTICE us Maik Morris MD LAB BLOOD ORDERABLES Final Res ult Performing Organization Address [facility] Co de Phone Number JOHN GALLEGOS [address] [address] [facility] [place] [address] * (ABNORMAL) Urinalysis, microscopic only (08/09/2022 9:10 AM OPTICIAN APPRENTICE) WBC, ur 0-5 0 - 5 /HPF [facility] RBC, ur 3-5(A) 0 - 2 /HPF [facility] Epithelial cells, squamous, ur 1-5 0 - 5 /HPF [facility] Mucous, ur Present(A) [facility] Culture Reflex Comment Reflex conditions for urine culture (WBC >10) not met. [facility] Urine 08/09/2022 9:10 AM OPTICIAN APPRENTICE 08/09/2022 2:05 PM OPTICIAN APPRENTICE Maik Morris MD LAB URINE ORDERABLES Final Res ult Performing Organization Address [facility] Co de Phone Number JOHN GALLEGOS [phone] [place] [address] * Differential, auto (08/09/2022 9:10 AM OPTICIAN APPRENTICE) Neutrophil abs 3.4 1.7 - 6.5 K/cumm [facility] Imm gran abs 0.0 0.0 - 0.1 K/cumm [facility] Lymphocyte abs 1.8 0.8 - 3.3 K/cumm [facility] Monocyte abs 0.3 0.2 - 0.8 K/cumm [facility] Eosinophil abs 0.1 0.0 - 0.5 K/cumm [facility] Basophil abs 0.0 0.0 - 0.1 K/cumm [facility] Neutrophil pct 60.6 % [facility] Comment: Interpretive Data Percent cell count reference ranges are not reported, since discordance with absolute values may lead to misinterpretation of CBC data. Current Interpretive Data was last revised on 2017. Imm gran pct 0.5 % [facility] Comment: Interpretive Data Percent cell count reference ranges are not reported, since discordance with absolute values may lead to misinterpretation of CBC data. Current Interpretive Data was last revised on 2017. Lymphocyte pct 31.3 % [facility] Comment: Interpretive Data Percent cell count reference ranges are not reported, since discordance with absolute values may lead to misinterpretation of CBC data. Current Interpretive Data was last revised on 2017. Monocyte pct 5.5 % [facility] Comment: Interpretive Data Percent cell count reference ranges are not reported, since discordance with absolute values may lead to misinterpretation of CBC data. Current Interpretive Data was last revised on 2017. Eosinophil pct 1.4 % [facility] Comment: Interpretive Data Percent cell count reference ranges are not reported, since discordance with absolute values may lead to misinterpretation of CBC data. Current Interpretive Data was last revised on 2017. Basophil pct 0.7 % [facility] Comment: Interpretive Data Percent cell count reference ranges are not reported, since discordance with absolute values may lead to misinterpretation of CBC data. Current Interpretive Data was last revised on 2017. Blood 08/09/2022 9:10 AM OPTICIAN APPRENTICE 08/09/2022 9:20 AM OPTICIAN APPRENTICE us Maik Morris MD LAB BLOOD ORDERABLES Final Res ult [facility] [address] [place] [address] * CBC with auto differential (08/09/2022 9:10 AM OPTICIAN APPRENTICE) WBC 5.6 3.8 - 9.9 K/cumm [facility] Hgb 14.8 11.9 - 15.5 g/dL [facility] Hct 44.0 35.6 - 45.5 % [facility] Plt 247 150 - 400 K/cumm [facility] MPV 10.7 9.1 - 12.3 fL [facility] RBC 4.72 3.90 - 5.20 M/cumm [facility] MCV 93.2 81.3 - 96.4 fL [facility] MCH 31.4 27.1 - 33.3 pg [facility] MCHC 33.6 32.3 - 35.7 g/dL [facility] RDW CV 12.3 11.1 - 14.9 % [facility] RDW SD 42.0 35.7 - 48.1 fL [facility] NRBC abs 0.00 0.00 - 0.01 K/cumm [facility] Blood 08/09/2022 9:10 AM OPTICIAN APPRENTICE 08/09/2022 9:20 AM OPTICIAN APPRENTICE Maik Morris MD LAB BLOOD ORDERABLES Final Res ult Performing Organization Address [facility] Co de Phone Number [facility] [address] [address] Department [place] [address] * Vitamin B12 (08/09/2022 9:10 AM OPTICIAN APPRENTICE) Vitamin B12 887 230 - 1,250 pg/mL [facility] Blood 08/09/2022 9:10 AM OPTICIAN APPRENTICE 08/09/2022 9:10 AM OPTICIAN APPRENTICE Maik Morris MD LAB BLOOD ORDERABLES Final Res ult Performing Organization Address [facility] de Phone Number [facility] [address] [place] [address] * (ABNORMAL) Urinalysis reflex to microscopic and culture Urine (08/09/2022 9:10 AM OPTICIAN APPRENTICE) Color, ur Yellow Yellow [facility] Clarity, ur Clear Clear [facility] Specific gravity, ur 1.017 1.003 - 1.030 [facility] pH, urine 6.0 [facility] Protein, ur ql Negative Negative [facility] Glucose, ur ql Negative Negative [facility] Ketones, ur Trace Negative [facility] Bilirubin, ur Negative Negative [facility] Blood, ur Trace(A) Negative [facility] Urobilinogen, ur 0.2 <2.0 mg/dL [facility] Nitrite, ur Negative Negative [facility] Leukocyte esterase, ur Trace(A) Negative [facility] UA reflex comment Reflex to microscopic UA will be performed. [facility] Urine 08/09/2022 9:10 AM OPTICIAN APPRENTICE 08/09/2022 9:17 AM OPTICIAN APPRENTICE Narrative [facility] - 08/09/2022 2:18 PM OPTICIAN APPRENTICE ?? Urine pH is affected by diet, medications, systemic acid-base disturbances, and renal tubular function. ??pH may affect urinary stone formation. ??For example, urine pH below 6.0 may help reduce the tendency for calcium phosphate stones and pH greater than 6.0 may reduce the tendency for uric acid stone formation. Source: [facility] [employer]. Last revised 06-27-2017 us Maik Morris MD LAB MICROBIOLOGY - GENERAL ORD ERABLES Final Result JOHN [address] [place] [address] * Comprehensive metabolic panel (08/09/2022 9:10 AM OPTICIAN APPRENTICE) Sodium 137 135 - 145 mmol/L [facility] Potassium, pl 4.4 3.3 - 4.9 mmol/L [facility] Chloride 102 97 - 110 mmol/L [facility] CO2 24 22 - 32 mmol/L [facility] Anion gap 11 2 - 15 mmol/L [facility] BUN 15 8 - 25 mg/dL [facility] Creatinine 0.95 0.60 - 1.10 mg/dL [facility] Glucose 87 70 - 199 mg/dL [facility] Comment: Interpretive Data Fasting glucose >/= 126 mg/dl is diagnostic for diabetes. ?? Fasting is defined as no caloric intake for at least 8 hours. Fasting glucose between 100 mg/dl to 125 mg/dl is diagnostic of prediabetes. In a patient with classic symptoms of hyperglycemia or hyperglycemic crisis, a random glucose >/= 200 mg/dl is diagnostic for diabetes. In the absence of unequivocal hyperglycemia, results should be confirmed by repeat testing. The classification and Diagnosis of Diabetes Diabetes Care 2021; 46: S19-S40. Current interpretive data was last revised 2022. Calcium 9.5 8.5 - 10.3 mg/dL [facility] Bilirubin, total 0.8 0.1 - 1.2 mg/dL [facility] Protein, pl 7.9 6.5 - 8.5 g/dL [facility] Albumin 4.9 3.5 - 5.0 g/dL [facility] Alk phos 51 40 - 130 Units/L [facility] ALT 8 7 - 45 Units/L [facility] AST 17 10 - 45 Units/L [facility] Blood 08/09/2022 9:10 AM OPTICIAN APPRENTICE 08/09/2022 9:10 AM OPTICIAN APPRENTICE Maik Morris MD LAB BLOOD ORDERABLES Final Res ult Performing Organization Address [facility]/ZIP Co de Phone Number [facility] [address] [address] [facility] [place] [address] * Uric acid (08/09/2022 9:10 AM OPTICIAN APPRENTICE) Uric acid 4.6 2.5 - 7.0 mg/dL [facility] Blood 08/09/2022 9:10 AM OPTICIAN APPRENTICE 08/09/2022 9:10 AM OPTICIAN APPRENTICE Maik Morris MD LAB BLOOD ORDERABLES Final Res ult Performing Organization Address [facility] Co de Phone Number [facility] [address] [address] [facility] [place] [address] * Folate (08/09/2022 9:10 AM OPTICIAN APPRENTICE) Folic acid 15.7 >=5.0 ng/mL [facility] Comment:Hemolysis present. R esults may be affected. Blood 08/09/2022 9:10 AM OPTICIAN APPRENTICE 08/09/2022 9:10 AM OPTICIAN APPRENTICE Maik Morris MD LAB BLOOD ORDERABLES Final Res ult Performing Organization Address [facility] Co de Phone Number [facility] [address] [address] [facility] [place] [address] * Vitamin D 25 hydroxy (08/09/2022 9:10 AM OPTICIAN APPRENTICE) Vitamin D 25-OH 39 30 - 80 ng/mL [facility] Blood 08/09/2022 9:10 AM OPTICIAN APPRENTICE 08/09/2022 9:11 AM OPTICIAN APPRENTICE Maik Morris MD LAB BLOOD ORDERABLES Final Res ult Performing Organization Address [facility]/ZIP Co de Phone Number JOHN GALLEGOS [address] [place] [address] * TSH reflex to free T4 (08/09/2022 9:10 AM OPTICIAN APPRENTICE) TSH 0.82 0.30 - 4.20 mcIUnit/mL JOHN Blood 08/09/2022 9:10 AM OPTICIAN APPRENTICE 08/09/2022 9:10 AM OPTICIAN APPRENTICE Maik Morris MD LAB BLOOD ORDERABLES Final Res ult Performing Organization Address [facility] de Phone Number JOHN GALLEGOS [address] [place] [address] * (ABNORMAL) Lipid panel (08/09/2022 9:10 AM OPTICIAN APPRENTICE) Cholesterol 203(H) 30 - 199 mg/dL [facility] Comment: Interpretive Data Ages < or = 19 years ??Acceptable: ? <170 mg/dL ??Borderline high: ??170-199 mg/dL ??High: ? >or= 200 mg/dL Ages > or = 20 years ??Desirable: ?<200 mg/dL ??Borderline high: ??200-239 mg/dL ??High: ? >or= 240 mg/dL Literature References: 1. Expert Panel on Integrated Guidelines for Cardiovascular Health and Risk Reduction in Children and Adolescents. Pediatrics 2011;128:S213 2. NCEP Expert Panel. Circulation 2004;110:227 Current Interpretive Data was last revised on 2018. Triglycerides 49 <=149 mg/dL [facility]ALLEG[facility] Comment: Interpretive Data Ages < or = 9 years ??Acceptable: ? <75 mg/dL ??Borderline high: ??75-99 mg/dL ??High: ? >or= 100 mg/dL Ages 10 to 20 years ??Acceptable: ? <90 mg/dL ??Borderline high: ??90-129 mg/dL ??High: ? >or= 130 mg/dL Ages > or = 20 years ??Desirable: ?<150 mg/dL ??Borderline high: ??150-199 mg/dL ??High: ? 200-499 mg/dL ?Very high: ?? >or= 499 mg/dL Literature References: 1. Expert Panel on Integrated Guidelines for Cardiovascular Health and Risk Reduction in Children and Adolescents. Pediatrics 2011;128:S213 2. NCEP Expert Panel. Circulation 2004;110:227 Current Interpretive Data was last revised on 2018. HDL 65 >=40 mg/dL JOHN Comment: Interpretive Data Ages < or = 19 years ??Acceptable: ? >45 mg/dL ??Borderline low: ?? 40-45 mg/dL ??Low: ? <40 mg/dL Ages > or = 20 years ??Desirable: ?>or= 60 mg/dL ??Low: ? <40 mg/dL Literature References: 1. Expert Panel on Integrated Guidelines for Cardiovascular Health and Risk Reduction in Children and Adolescents. Pediatrics 2011;128:S213 2. NCEP Expert Panel. Circulation 2004;110:227 Current Interpretive Data was last revised on 2018. LDL, calculated 128 <=129 mg/dL JOHN Comment: Interpretive Data Ages < or = 19 years ??Acceptable: ? <110 mg/dL ??Borderline high: ??110-129 mg/dL ??High: ?>or= 130 mg/dL Ages > or = 20 years ??Optimal: ? <100 mg/dL ??Near optimal: ?100-129 mg/dL ??Borderline high: ?? 130-159 mg/dL ??High: ?>160 mg/dL Literature References: 1. Expert Panel on Integrated Guidelines for Cardiovascular Health and Risk Reduction in Children and Adolescents. Pediatrics 2011;128:S213 2. NCEP Expert Panel. Circulation 2004;110:227 Current Interpretive Data was last revised on 2018. Non-HDL Cholesterol 138 mg/dL JOHN GALLEGOS Comment: Interpretive Data Ages < or = 19 years ??Acceptable: ?<120 mg/dL ??Borderline high: ??120-144 mg/dL ??High: ?>145 mg/dL Ages > or = 20 years ??When triglycerides are >200 mg/dL, Non-HDL cholesterol is a secondary target of ? therapy with treatment goals that are 30 mg/dL greater than the LDL cholesterol target. ? Literature References: 1. Expert Panel on Integrated Guidelines for Cardiovascular Health and Risk Reduction in Children and Adolescents. Pediatrics 2011;128:S213 2. NCEP Expert Panel. Circulation 2004;110:227 Current Interpretive Data was last revised on 2018. Chol/HDL ratio 3 JOHN GALLEGOS Blood 08/09/2022 9:10 AM OPTICIAN APPRENTICE 08/09/2022 9:10 AM OPTICIAN APPRENTICE us Maik Morris MD LAB BLOOD ORDERABLES Final Res ult JOHN GALLEGOS [address] [address] [place] [address] documented in this encounter Visit Diagnoses Not on filedocumented in this encounter Care Teams Helicopter Pilot Instructor Relationship Specialty Start Date End Date Unknown, Notinfile PCP - General 08/09/22 documented as of this encounter
--- OUTSIDE RECORDS SUMMARY | 2024-06-28 07:43 | XMS_ITS | Encounter Summary ---
Author Organization [facility] Healthcare Address [address] [place] [address] Care Team Providers Care Software Applications Architect Name Role Phone Unavailable Primary Care Provider Unavailabl e Encounter Details Date Type Department Care Team (Late st Contact Info) Description 10/09/2019 6:15 PM CDT Lab [address] [address] Social History Tobacco Use Types Packs/Day Years [...] Procedure Name Priority Date/Time Associated Diagnosis Comments VARICELLA ZOSTER ANTIBODY, IGG Routine 10/09/2019 10:57 AM CDT documented in this encounter Results * Varicella Zoster (VZV) IgG Blood (10/09/2019 10:57 AM CDT) VZV IgG Reactive Nonreactive [facility] Comment:IgG antibodies to Va ricella Zoster virus detected.?? This may indicate that the patient was exposed to Varicella Zoster through??infection or vaccination. Blood specimen (specimen) 10/09/2019 10:57 AM CDT 10/09/2019 6:14 PM CDT Ernesto Iraheta MD LAB MICROBIOLOGY - GENERAL OR DERABLES Final Result [facility] Department [place] [address] documented in this encounter Visit Diagnoses Not on filedocumented in this encounter
== END 2024-06-25 16:27 | disposition home or self-care (01) | DRG 786 ==
LOC: ANHLDR 17:14 → ANHOB2 06-23 05:15
PROVIDERS: Admitting Provider Obstetrics & Gynecology; PCP Nurse Practitioner Family; Visit Provider Obstetrics & Gynecology
PROC: 10D00Z1 Extraction of Products of Conception, Low, Open Approach (ICD-10-PCS; CPT 59514; principal; 2024-06-23 00:30)
DX: O62.0 Primary inadequate contractions (principal); O41.1230 Chorioamnionitis, third trimester, not applicable or unspecified; O75.2 Pyrexia during labor, not elsewhere classified; O76 Abnormality in fetal heart rate and rhythm complicating labor and delivery; O67.8 Other intrapartum hemorrhage; Z3A.40 40 weeks gestation of pregnancy; Z37.0 Single live birth
CPT/HCPCS: 36415; 36430; 80170; 82565; 85025; 85461; 86592; 86703; 86850; 86900; 86901; 86923; 88307; 90384; A9270; G0432; J0290; J1200; J1580; J1885; J2210; J2270; J2274; J2371; J2405; J2590; J2765; J2790; J2795; J7050; J7120; P9016

== ENCOUNTER 2024-07-17 07:37 | Outpatient (CLI) | payer OTHER, MEDICAID, SELFPAY ==
--- OUTSIDE RECORDS SUMMARY | 2024-07-17 07:41 | XMS_ITS | Encounter Summary ---
Author Organization [facility] Address [address] [place] [address]. [place], [place] [id number] [place] [address] Care Team Providers Care Multimedia Educational Specialist Name Role Phone Carlyn Mcpherson Primary Care Provider [phone] Encounter Details Date Type Department Care Team (Late st Contact Info) Description 08/09/2022 MyChart Message Enc [facility] Medical Group Family & Internal Medicine [address] [phone] Carlyn Mcpherson FNP [address] [place] [phone] Medication Social History Tobacco Use Types Packs/Day [...] Coronavirus/COVID-19? No / Unsure 07/31/2022 3:30 PM SPANISH MOSS PICKER documented as of this encounter Plan of Treatment Not on file documented as of this encounter Visit Diagnoses Not on filedocumented in this encounter Additional Health Concerns Assessment Noted Time PHQ-9 Depression Total Score: 1 07/31/19 4:07 PM SPANISH MOSS PICKER documented as of this encounter Care Teams Multimedia Educational Specialist Relationship Specialty Start Date End Date Carlyn Mcpherson FNP [address] [place] [address] PCP - General Nurse Practitioner Family 04/03/21 documented as of this encounter
--- OUTSIDE RECORDS SUMMARY | 2024-07-17 07:41 | XMS_ITS | Encounter Summary ---
Author Organization [facility] Address [address] [place] [address]. [place] [address] [place] [address] Care Team Providers Care Orthotics Prosthetics Assistant Name Role Phone Carlyn Mcpherson Primary Care Provider [phone] Encounter Details Date Type Department Care Team (Late st Contact Info) Description 07/31/2022 Intentio Message Simple [facility] [address] [place] [address] Mychart, [facility] Provider Patient Name Change Request Social History [...] Coronavirus/COVID-19? No / Unsure 07/31/2022 3:30 PM AGENCY SALES MANAGEMENT ASSISTANT documented as of this encounter Plan of Treatment Not on file documented as of this encounter Visit Diagnoses Not on filedocumented in this encounter Additional Health Concerns Assessment Noted Time PHQ-9 Depression Total Score: 1 07/31/19 23 4:07 PM AGENCY SALES MANAGEMENT ASSISTANT documented as of this encounter Care Teams Orthotics Prosthetics Assistant Relationship Specialty Start Date End Date Carlyn Mcpherson FNP [facility] [place] [address] PCP - General Nurse Practitioner Family 04/03/21 documented as of this encounter
--- OUTSIDE RECORDS SUMMARY | 2024-07-17 07:41 | XMS_ITS | Encounter Summary ---
Author Organization [facility] Address [address] [place] [address]. [place], [place] [id number] [place] [address] Care Team Providers Care Milk Of Lime Slaker Name Role Phone Carlyn Mcpherson Primary Care Provider [phone] Encounter Details Date Type Department Care Team (Late st Contact Info) Description 10/24/2023 MyChart Message Enc [facility] Medical Group Family & Internal Medicine [address] [phone] Carlyn Mcpherson FNP [address] [place] [address] [facility] lab Social History Tobacco Use Types [...] Total Score: 1 07/31/19 23 4:07 PM SHANK SANDER documented as of this encounter Care Teams Milk Of Lime Slaker Relationship Specialty Start Date End Date Carlyn Mcpherson FNP [address] [place] [address] PCP - General Nurse Practitioner Family 04/03/21 documented as of this encounter
--- OUTSIDE RECORDS SUMMARY | 2024-07-17 07:42 | XMS_ITS | Patient Health Summary ---
Author Organization [facility] Address [address] [place] [address] Care Team Providers Care Email Administrator Name Role Phone Unavailable Primary Care Provider Unavailabl e Note from [facility],non-owned Affiliates and Associated Physician Practices is amultiple site organization consisting of ambulatory clinics and hospital sitesin [place], [place], [place] and [place]. This disclosure is being madepursuant to the Care Everywhere program and may not contain all information available regarding this patient. Last updated 18.[facility] Allergies No known active allergies Social History [...] COMPLETE(Performed 03/30/2024) Performed for BMI 31.0-31.9,adult, Third (HCC), Encounter for ultrasound to assess growth ([facility]) * SONOGRAM - COMPLETE(Performed 03/02/2024) Performed for Encounter for follow-up ultrasound of anatomy ([facility]), BMI 31.0-31.9,adult, Thirdpregnancy ([facility]) * SONOGRAM - COMPLETE(Performed 02/03/2024) Performed for Encounter for anatomic survey ([facility]), BMI 31.0-31.9,adult * SONOGRAM - COMPLETE(Performed 12/16/2023) Performed for Nuchal translucency of fetus on ultrasound ([facility]), Third ([facility]) Results * SONOGRAM - COMPLETE (03/30/2024 7:28 AM CDT) Only the most recent of4 resultswithin the time period is included. Anatomical Region Laterality Modality Other 03/30/2024 7:28 AM CDT Narrative 03/30/2024 8:56 AM CDT ? [facility] ?PHONE: ??FAX: Pat. Name: ?PATRICIA MCKEON. No: ?[id number] Study Date: ?? 03/30/2024 ??7:28am , Age: ? 1990, 34 Pregnancies: ?? 3, Para 1011 Height: ? 67 in Weight: ? 198 lb LMP: ?09/16/2023 GA by LMP: ?28w0d GA by Base: ?? 28w0d ?? DHRUV: 06/22/2024 GA by US: ? 28w5d ?? DHRUV: 06/17/2024 GA Selected: ??28w0d (LMP) DHRUV: ?06/22/2024 Referring MD: Jose Carlos Alberto MD Window Shade Cutter: ??Keli Trujillo RDMS CPT4: ? 40848 BMI: ?31.01 Hist/Ind: ? Incomplete Anatomy Screen ?AMA: LR NIPT ?Class I Obesity MEASUREMENTS & AGE ? GROWTH EVALUATION Measurement ??GA ? Range ? Srce %for GA Ratios ----- ---- ------- BPD ??7.5 cm 30w0d (80p1d-21r0r) Hadl BPD 91% FL/BPD 0.70 (0.71 - 0.87* HC ??25.9 cm 28w1d (49d7m-47g8u) Hadl HC ??25% FL/AC ??0.22 (0.20 - 0.24) AC ??24.4 cm 28w4d (57m2q-65t9o) Hadl AC ??60% HC/AC ??1.06 (0.99 - 1.18) FL ?? 5.3 cm 28w0d (13v4t-27v6o) Hadl FL ??33% CI ? 0.85 (0.70 - 0.86) HL ?? 4.8 cm 28w3d (28x0f-77b5c) Alfonso HL ??57% GA for sonogram 28w5d (49q9t-53s0w) ?? Weight Estimate: based on (BPD,HC,AC,FL) Avg [...] to care for your patient. ?? Isma Hernandez DO <Electronic Signature> ??03/30/2024 08:55am Jose Carlos Alberto MD [facility] ORDERABLES
--- OUTSIDE RECORDS SUMMARY | 2024-07-17 07:42 | XMS_ITS | Clinical Summary ---
Author Organization [facility] Office Building [address] Address [address] [place] [id number] Care Team Providers Care Nursing Program Manager Name Role Phone Unknown, Notinfile Primary Care [...] topic Insurance IDPA [employer] Care Teams Nursing Program Manager Relationship Specialty Start Date End Date Unknown, Notinfile PCP - General 08/09/22
--- OUTSIDE RECORDS SUMMARY | 2024-07-17 07:42 | XMS_ITS | Clinical Summary ---
Author Organization [facility] [employer] Address [address] [place] [address] Care Team Providers Care Assistant Product Manager Name Role Phone Unavailable Primary Care Provider Unavailabl e Source Comments [facility],non-owned Affiliates and Associated Physician Practices is amultiple site organization consisting of ambulatory clinics and hospital sitesin [place], [place], [place] and [place]. This disclosure is being madepursuant to the Care Everywhere program and may not contain all information available regarding this patient. Last updated 18.[facility] Allergies No known active allergies Social History [...] - 19+ 3-dose series) 02/25/2007 COVID-19 VACCINE ( - 2023-2 5 season) 2024 INFLUENZA VACCINE (#1) 2024 [...] patient's age to complete this topic MENINGOCOCCAL (Group B) VACCINE Aged Out No longer eligible based on patient's age to complete this topic MENINGOCOCCAL VACCINE Aged Out No key david eligible based on patient's age to complete this topic PNEUMOCOCCAL VACCINE Aged Out No long er eligible based on patient's age to complete this topic Respiratory Syncytial Virus (RSV) Vaccine Pt: or over 60 yrs (No Doses Required) Completed Patricia Baird Personal/Family Self 1990
--- OUTSIDE RECORDS SUMMARY | 2024-07-17 07:42 | XMS_ITS | Clinical Summary ---
Author Organization [facility] Address [address] [place] [address]. [place], [place] [id number] [place] [id number] Care Team Providers Care Election Clerk Name Role Phone Carlyn Mcpherson Primary Care Provider [phone] Allergies No known active allergies Medications Vitamin D3 (VITAMIN D) 50 mcg tablet Active Thiamine HCl (VITAMIN B-1) 250 MG Tab Active Rfyiecdx-Lym-Ub- FA (PRE-MYLA FORMULA) Tab Take 1 tablet [...] Encounters Date Type Department Care Team Description 06/23/2024 Scan [facility] Scanned, [facility] Pathology (SCAN) 06/21/2024 Scan [facility] Scanned[facility] 06/05/2024 Scan [facility] Scanned, [facility] Ultrasound (SCAN) from Last 3 Months Family History [...] 5 season) 2024 Influenza Adult (#1) 2024 PHQ-2 (Physician [facility]) 06/17/2024 10/04/2023 Annual Physical 10/03/2024 10/04/2023 Cervical Cancer Screening with HPV 10/03/2024 Postponed from 02/25/2018 (Going to Outside Clinic) PHQ-2 (Physician [facility]) 10/03/2024 10/04/2023 Hepatitis C Completed 04/10/2021 HPV Vaccines Aged Out No longer eligi ble based on patient's age to complete this topic Meningococcal B Vaccine Aged Out No l onger eligible based on patient's age to complete [...] Procedure Name Priority Date/Time Associated Diagnosis Comments PATHOLOGY GENERIC (SCAN ORDER) 06/23/2024 ULTRASOUND GENERIC (SCAN ORDER) 06/05/2024 HEPATITIS C ANTIBODY Routine 04/10/2021 8:01 AM CDT Adult BMI 30.0-30.9 kg/sq m Need for hepatitis C screening test Encounter for vitamin deficiency screening Encounter for lipid screening for cardiovascular disease from Last 3 Months or Most Recently Relevant to Health Maintenance Results * PATHOLOGY GENERIC (SCAN ORDER) (06/23/2024) 06/23/2024 [facility] Scanned SCANNING Final Resu lt * ULTRASOUND GENERIC (SCAN ORDER) (06/05/2024) Anatomical Region Laterality Modality Other 06/05/2024 [facility] Scanned SCANNING Final Resu lt * HEPATITIS C ANTIBODY (04/10/2021 8:01 AM CDT) HEPATITIS C AB NON-REACTI VE NON-REACT [place] 04/10/2021 6:49 PM CDT [facility] Comment: ANTIBODIES TO HCV NOT DETECTED. DOES NOT EXCLUDE THE POSSIBILITY OF EXPOSURE TO HCV. 04/10/2021 8:01 AM CDT Carlyn Mcpherson [facility] Final Result [facility] [address] [place] [address], [place] [phone] [id number] from Last 3 Months or Most Recently Relevant to Health Maintenance Insurance [employer] Care Teams Election Clerk Relationship Specialty Start Date End Date Carlyn Mcpherson FNP [address] [place] [phone] PCP - General Nurse Practitioner Family 04/03/21
--- OUTSIDE RECORDS SUMMARY | 2024-07-17 07:42 | XMS_ITS | Referral Summary ---
Author Organization [facility] Office Building [address] [place] [phone] Care Team Providers Care Termite Helper Name Role Phone Unknown, Notinfile Primary Care [...] of Treatment Not on file Insurance IDPA [facility] ALLEGIANCE Care Teams Termite Helper Relationship Specialty Start Date End Date Unknown, Notinfile PCP - General 08/09/22
--- OUTSIDE RECORDS SUMMARY | 2024-07-17 07:42 | XMS_ITS | Referral Summary ---
Author Organization [facility] [employer] Address [address] [place] [address] Care Team Providers Care Writer Producer Name Role Phone Unavailable Primary Care Provider Unavailabl e Source Comments [facility],non-[facility] Affiliates and Associated Physician Practices is amultiple site organization consisting of ambulatory clinics and hospital sitesin [place], [place], [place] and [place]. This disclosure is being madepursuant to the Care Everywhere program and may not contain all information available regarding this patient. Last updated 18.[facility] [employer] Allergies No known active allergies Social History Tobacco Use Types Packs/Day Years Used Date Smoking Tobacco: Never Assessed Estimated Date of Delivery Comme nts Yes 06/22/2024 Based on last me nstrual period of 09/16/2023 Sex and Gender Information Value Date Recorded Sex Assigned at Not on file Gender Identity Not on file Sexual Orientation Not on file Plan of Treatment Not on file Patricia Baird Personal/Family Self 1990
[2024-07-17 08:05] LABS: Basophils Percent Auto 0.5 % (0.2-1.2); Eosinophils Absolute Auto 0.1 K/mm3 (0-0.3); Eosinophils Percent Auto 2.1 % (0-4.4); Hematocrit 38.6 % (37.0-47.0); Hemoglobin 13.1 g/dL (12.0-15.0); Immature Granulocyte Absolute 0.03 K/mm3 (0.00-0.031); Immature Granulocyte Percent A 0.5 % (0-0.5); Lymphocytes Percent Auto 26.2 % (18.3-44.2); Mean Corpuscular HGB Conc 33.9 g/dl (32-36); Mean Corpuscular Hemoglobin 32.9 pg (26-34); Mean Platelet Volume 9.7 fl (7.4-10.4); Monocytes Absolute Auto 0.4 K/mm3 (0.1-0.6); Monocytes Percent Auto 6.1 % (2.6-8.5); Neutrophils Absolute Auto 3.7 K/mm3 (1.3-6.7); Neutrophils Percent Auto 64.6 % (45.5-73.1); Platelet Count Result 230 k/mm3 (150-375); Red Blood Count 3.98 M/mm3 (4.2-5.4); Red Cell Distribution Width 13.2 % (11.5-14.5); White Blood Count 5.7 K/mm3 (4.5-10.0)
[2024-07-17 08:22] LABS: Iron 80 ug/dL (37-170)
[2024-07-17 08:34] LABS: Percent Iron Saturation 34 % (20-50)
== END 2024-07-17 07:38 | disposition home or self-care (01) ==
LOC: ANHLAB 07:38
PROVIDERS: PCP Nurse Practitioner Family; Visit Provider Obstetrics & Gynecology
DX: D64.9 Anemia, unspecified (principal)
CPT/HCPCS: 36415; 83540; 83550; 85025